=== PATIENT | male | born 1965 | race American Indian/Alaskan Native ===

== ENCOUNTER 2019-03-20 17:28 | Emergency (ER) | payer MEDICAID ==
--- NOTE | 2019-03-20 18:13 | Emergency Department Report ---
Blank Doc - Documentation Documentation: This is a 53-year-old male that presents with headache and right hip pain. 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 This initial assessment/diagnostic orders/clinical plan/treatment(s) is/are subject to change based on patient's health status, clinical progression and re- assessment by fellow clinical providers in the ED. Further treatment and workup at subsequent clinical providers discretion. Patient/guardians urged not to elope from the ED as their condition may be serious if not clinically assessed and managed. Initial orders include: 1- Patient sent to MAIN ED for further evaluation and treatment
[2019-03-20] MEDS ORDERED: MORPHINE IM ONE (21:01)
--- NOTE | 2019-03-20 21:03 | Emergency Department Report ---
ED General Adult HPI - General Chief complaint: Pain General Stated complaint: BODY PAIN Time Seen by Provider: 03/20/19 18:10 Source: patient, family (history obtained from patient's current caregiver), RN notes reviewed Mode of arrival: Wheelchair Limitations: Altered Mental Status, Physical Limitation - History of Present Illness Initial comments: This is a 53-year-old gentleman. The patient is not known to this provider previously. History is obtained by his caregiver. The patient's primary care doctor is Dr. Darek Mccoy,; [phone]. The patient has a past medical history of moderate mental retardation, hydrocephalus, cerebral palsy, GERD, spastic quadriplegia, overactive bladder, constipation and long-term drug therapy. The patient is brought to the hospital by his caregiver for evaluation of headache and nontraumatic right-sided hip pain. The patient is poorly verbal. The patient indicates he is having a headache. The patient indicates she is having hip pain. The patient and the caregiver cannot describe the nature of the pain, radiation, exacerbating or relieving factors. As per the caregiver, no fever, vomiting, loss of consciousness, foul-smelling urine, or change in medications that she is aware of. She thinks the pain got worse today, but she is not sure. Location: head, lower extremity Quality: other Consistency: other Improves with: other Worsens with: other Associated Symptoms: other - Related Data Home Medications Medication Instructions Recorded Confirmed Last Taken Docusate Sodium [Colace CAP] 100 mg PO BID 09/04/13 09/04/13 10/03/15 Nystatin [Nystop Powder] 100,000 gm PO DAILY 09/04/13 09/04/13 10/02/15 Omeprazole [PriLOSEC] 40 mg PO DAILY 09/04/13 09/04/13 10/04/15 10:00 Promethazine HCl [Promethazine TAB] 25 mg PO DAILY 09/04/13 09/04/13 09/03/13 diazePAM TAB [Valium] 2 mg PO BID 09/04/13 09/04/13 10/04/15 17:00 Indacaterol/Glycopyrrolate 2 mg PO 10/05/15 10/04/15 17:00 [id number]/Sod Sul/NaCl/Asb/C/KCl gm PO 10/05/15 10/05/15 06:30 [Moviprep Powder Packet] Solifenacin Succinate [Vesicare] 10 mg PO DAILY 10/05/15 10/05/15 10/04/15 10:00 traMADol [Ultram 50 MG tab] 50 mg PO PRN 10/05/15 10/05/15 09/21/15 Allergies Allergy/AdvReac Type Severity Reaction Status Date / Time No Known Allergies Allergy Unverified 09/04/13 12:05 ED Review of Systems ROS: Stated complaint: BODY PAIN Other details as noted in HPI Comment: per caregiver Constitutional: denies: fever Eyes: denies: eye discharge ENT: denies: epistaxis Respiratory: denies: wheezing Cardiovascular: denies: syncope Gastrointestinal: denies: nausea, vomiting, diarrhea Genitourinary: other Musculoskeletal: arthralgia Neurological: headache ED Past Medical Hx - Past Medical History Previous Medical History?: Yes Hx GERD: Yes Additional medical history: TBI- wheel chair bound, over-reactive bladder, 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 - Social History Smoking Status: Never Smoker Substance Use Type: None - Medications Home Medications: Home Medications Medication Instructions Recorded Confirmed Last Taken Type Docusate Sodium [Colace CAP] 100 mg PO BID 09/04/13 09/04/13 10/03/15 History Nystatin [Nystop Powder] 100,000 gm PO DAILY 09/04/13 09/04/13 10/02/15 History Omeprazole [PriLOSEC] 40 mg PO DAILY 09/04/13 09/04/13 10/04/15 10:00 History Promethazine HCl [Promethazine TAB] 25 mg PO DAILY 09/04/13 09/04/13 09/03/13 History diazePAM TAB [Valium] 2 mg PO BID 09/04/13 09/04/13 10/04/15 17:00 History Indacaterol/Glycopyrrolate 2 mg PO 10/05/15 10/04/15 17:00 History [id number]/Sod Sul/NaCl/Asb/C/KCl gm PO 10/05/15 10/05/15 06:30 History [Moviprep Powder Packet] Solifenacin Succinate [Vesicare] 10 mg PO DAILY 10/05/15 10/05/15 10/04/15 10:00 History traMADol [Ultram 50 MG tab] 50 mg PO PRN 10/05/15 10/05/15 09/21/15 History ED Physical Exam - General Limitations: Physical Limitation, Other (patient is awake. The patient follows commands. Patient will answer some yes no questions.) General appearance: alert, in no apparent distress - Head Head exam: Present: atraumatic, normocephalic - Eye Eye exam: Present: normal appearance - ENT ENT exam: Present: normal orophraynx, mucous membranes moist, normal external ear exam, other (poor dentition) - Neck Neck exam: Present: normal inspection. Absent: tenderness, meningismus - Respiratory Respiratory exam: Present: decreased breath sounds. Absent: respiratory distress, wheezes, rales, rhonchi, stridor - Cardiovascular Cardiovascular Exam: Present: regular rate, normal rhythm, normal heart sounds. Absent: bradycardia, tachycardia, irregular rhythm, systolic murmur, diastolic murmur, rubs, gallop - GI/Abdominal GI/Abdominal exam: Present: soft. Absent: distended, tenderness, guarding, rebound, rigid, pulsatile mass - Rectal Rectal exam: Present: normal inspection (no sacral ulcers noted), other (chaperoned by emergency doctor of audiology Bryce) - exam: Present: normal inspection External exam: Present: normal external exam, other (chaperoned by emergency doctor of audiology [facility]) - Extremities Exam Extremities exam: Present: pedal edema, other (2+ pulses noted in the bilateral upper, lower extremities. Compartments soft. No long bony tenderness. The pelvis is stable.). Absent: normal inspection (contractures noted bilateral upper, lower extremities), tenderness, joint swelling, calf tenderness - Back Exam Back exam: Present: normal inspection (scoliosis is noted). Absent: tenderness, CVA tenderness (R), CVA tenderness (L), paraspinal tenderness, vertebral tenderness - Neurological Exam Neurological exam: Present: alert (the patient is awake. The patient will follow some commands. There is no obvious facial droop. Upper, lower extremities bilaterally noted to have contractures.) - Skin Skin exam: Present: warm, dry, intact, normal color ED Course Vital Signs 03/20/19 03/20/19 18:10 21:21 Temperature 97.5 F L Pulse Rate 104 H Respiratory 18 16 Rate Blood Pressure 136/92 O2 Sat by Pulse 94 Oximetry - Reevaluation(s) Reevaluation #1: 03/20/19 22:33 Differential diagnosis, including not limited to: Headache, migraine, tension headache, cluster headache, intracranial lesion, chronic arthritis, myositis, electrolyte derangement Assessment and plan: 53-year-old gentleman, quadriplegic, poorly verbal, with complaints of headache and hip pain. History limited as patient is not able to describe the nature of his pain. He is currently awake and does not appear to be in any acute distress. His tachycardia is resolved and my exam. On repeat examinations, resting comfortable, in stretcher, does not appear to be in any acute distress. Exam not consistent with fracture, dislocation, cellulitis or compartment syndrome. X-ray of the pelvis grossly unremarkable. Screening laboratory studies, CT scan of the brain, urinalysis pending. Reevaluation #2: 03/21/19 01:46 CT scan of the brain is negative for acute disease. Patient resting comfortably and in no acute distress. Multiple reassessments are performed, patient does not appear to be in any distress. Please note that there was a delay in the patient's disposition secondary to the turnaround time from the radiology group to repeat the CAT scan of the brain. In any event, the patient does not appear to have an emergent medical condition at this time, and is suitable to follow up with his outpatient primary care doctor. ED Medical Decision Making - Lab Data Result diagrams: 03/20/19 22:24 03/20/19 22:24 Vital Signs 03/20/19 03/20/19 18:10 21:21 Temperature 97.5 F L Pulse Rate 104 H Respiratory 18 16 Rate Blood Pressure 136/92 O2 Sat by Pulse 94 Oximetry - Radiology Data Radiology results: pending, report reviewed, image reviewed [facility] [address] [place] [address] XRay Report Signed Patient: DEEPA BURT MR#: [id number] 1 : 1965 Acct:[id number] Age/Sex: 53 / M ADM Date: 03/20/19 Loc: ED Attending Dr: Ordering Physician: LOUISE DAVIS MD Date of Service: 03/20/19 Procedure(s): XR pelvis 1-2V Accession Number(s): [id number] cc: LUOISE DAVIS MD Fluoro Time In Minutes: AP PELVIS INDICATION: chronic hip pain. COMPARISON: No relevant prior imaging study available. FINDINGS: The exam is suboptimal due to patient positioning. There appear to be chronic contractures at both hips. Advanced osteoarthrosis changes are noted. It would be difficult to exclude an acute fracture on this single view. IMPRESSION: 1. Limited study. No definite acute fracture is seen. There is advanced osteoarthrosis at the hips. Additional views or CT would be useful if clinical suspicion for acute abnormality is high. Signer Name: Srinivasan Sosa MD Signed: 03/20/2019 9:37 PM Workstation Name: [id number] [id number] Transcribed By: FARTUN Dictated By: Srinivasan Sosa MD Electronically Authentic ated By: Srinivasan Sosa MD Signed Date/Time: 03/20/19 509 Critical care attestation.: If time is entered above; I have spent that time in minutes in the direct care of this critically ill patient, excluding procedure time. ED Disposition Clinical Impression: Hip pain, Headache, Spastic quadriparesis secondary to cerebral palsy Disposition: DC-01 TO HOME OR SELFCARE Is pt being admited?: No Does the pt Need Aspirin: No Condition: Stable Additional Instructions: Please continue outpatient medications. Follow-up with your primary care doctor within the next week. Patient may return to the emergency room right away with new, worsening or different symptoms not present on the initial emergency room evaluation. Laboratory studies today did not demonstrate any acute emergent condition, x-ray of the pelvis did not appear to demonstrate any acute emergent condition, and CT scan of the brain did not demonstrate any acute emergent condition. Incidental chronic-appearing abnormalities were noted, which may be followed up by the patient's primary care doctor. Recommend primary care doctor contact medical records department to obtain laboratory records and radiology records. Please return to the ER right away with new, worsening or different symptoms not present on the initial evaluation. Referrals: [facility] [place] [Provider Group] - 3-5 Days [facility] [Provider Group] - 3-5 Days
--- NOTE | 2019-03-20 21:41 | XRay Report ---
AP PELVIS INDICATION: chronic hip pain. COMPARISON: No relevant prior imaging study available. FINDINGS: The exam is suboptimal due to patient positioning. There appear to be chronic contractures at both hi ps. Advanced osteoarthrosis changes are noted. It would be difficult to exclude an acute fracture on this single view. IMPRESSION: 1. Limited study. No definite acute fracture is seen. There is advanced osteoarthrosis at the hips. A dditional views or CT would be useful if clinical suspicion for acute abnormality is high. Signer Name: Srinivasan Sosa MD Signed: 03/20/2019 9:37 PM Workstation Name: [id number]
[2019-03-20 22:50] LABS: Mean Corpuscular HGB Conc 30 % (32-34); Mean Corpuscular Volume 75 fl (84-94); Platelet Count 224 K/mm3 (140-440); Red Cell Distribution Width 17.6 % (13.2-15.2)
[2019-03-20 22:52] LABS: Hematocrit 44.3 % (35.5-45.6); Hemoglobin 13.4 gm/dl (11.8-15.2)
[2019-03-20 23:20] LABS: BUN/Creatinine Ratio 30; Blood Urea Nitrogen 12 mg/dL (9-20); Calcium 8.6 mg/dL (8.4-10.2); Hemolysis Index 39
[2019-03-20 23:34] LABS: Bilirubin,Urine NEG (Negative); Blood,Urine NEG (Negative); Color,Urine Amber (Yellow); Mucus,Urine 1+ /HPF; Protein,Urine <15 mg/dL mg/dL (Negative)
--- NOTE | 2019-03-21 01:12 | Cat Scan Report ---
CT HEAD WITHOUT CONTRAST INDICATION / CLINICAL INFORMATION: headache. TECHNIQUE: All CT scans at this location are performed using CT dose reduction for ALARA by means of automated e xposure control. COMPARISON: None available. FINDINGS: HEMORRHAGE: None. EXTRA-AXIAL SPACES: Normal in size and morphology for the patient's age. VENTRICULAR SYSTEM: Prominent ventriculomegaly secondary to early advanced cerebral atrophy. CEREBRAL PARENCHYMA: Encephalomalacia right inferior frontal and left mid anterior frontal lobes. Ol d infarction within right ganglia capsular region. No significant abnormality. No acute territorial i nfarct. MIDLINE SHIFT OR HERNIATION: None. CEREBELLUM / BRAINSTEM: No significant abnormality. ORBITS: Normal as visualized. SOFT TISSUES of HEAD: No significant abnormality. CALVARIUM: No significant abnormality. PARANASAL SINUSES / MASTOID AIR CELLS: Normal as visualized. ADDITIONAL FINDINGS: None. IMPRESSION: 1. No acute intracranial abnormality. 2. 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 Moderately advanced cerebral atrophy with prominent ventriculomegaly. Signer Name: Jose Cheng MD Signed: 03/21/2019 1:08 AM Workstation Name: [id number]
[2019-03-21 08:41] VITALS: BP 119/73
== END 2019-03-21 01:50 | disposition home or self-care (01) ==
LOC: ED 17:28
DX: G80.0 Spastic quadriplegic cerebral palsy (principal); M25.551 Pain in right hip; K21.9 Gastro-esophageal reflux disease without esophagitis; Z79.899 Other long term (current) drug therapy
CPT/HCPCS: 36415; 70450; 72170; 80048; 81001; 82550; 83735; 85027; 87086; 96372; 99285; J2270

== ENCOUNTER 2019-03-27 19:11 | Emergency (ER) | payer MEDICAID ==
[2019-03-27 19:55] VITALS: BP 135/95
--- NOTE | 2019-03-27 22:24 | Emergency Department Report ---
ED General Adult HPI - General Chief complaint: Abdominal Pain Stated complaint: CONSTIPATION Time Seen by Provider: 03/27/19 19:59 Source: EMS Mode of arrival: Stretcher Limitations: Physical Limitation - History of Present Illness Initial comments: Mr. Rizvi is a 53 yo male with hx of quadriplegia and GERD. He is bedbound and minimally verbal. Home health nurse is concerned for constipation. He was treated with magnesium citrate without relief. Has not had about 5 days. Mr. Pina denies pain. He's had good appetite. machine assistant at bedside states that he is at his normal state of health. He is bedbound. He has been comfortable. No vomiting. No fever. Additional information obtained from electronic medical record -: Gradual, days(s) (5) Location: abdomen Severity scale (0 -10): 2 Quality: other (constipation) Consistency: constant Improves with: none Worsens with: none - Related Data Home Medications Medication Instructions Recorded Confirmed Last Taken Docusate Sodium [Colace CAP] 100 mg PO BID 09/04/13 09/04/13 10/03/15 Nystatin [Nystop Powder] 100,000 gm PO DAILY 09/04/13 09/04/13 10/02/15 Omeprazole [PriLOSEC] 40 mg PO DAILY 09/04/13 09/04/13 10/04/15 10:00 Promethazine HCl [Promethazine TAB] 25 mg PO DAILY 09/04/13 09/04/13 09/03/13 diazePAM TAB [Valium] 2 mg PO BID 09/04/13 09/04/13 10/04/15 17:00 Indacaterol/Glycopyrrolate 2 mg PO 10/05/15 10/04/15 17:00 [id number]/Sod Sul/NaCl/Asb/C/KCl gm PO 10/05/15 10/05/15 06:30 [Moviprep Powder Packet] Solifenacin Succinate [Vesicare] 10 mg PO DAILY 10/05/15 10/05/15 10/04/15 10:00 traMADol [Ultram 50 MG tab] 50 mg PO PRN 10/05/15 10/05/15 09/21/15 Previous Rx's Medication Instructions Recorded Last Taken Type Polyethylene Glycol/Elect 4,000 ml PO ONCE #1 bottle 03/27/19 Unknown Rx [Golytely] Allergies Allergy/AdvReac Type Severity Reaction Status Date / Time No Known Allergies Allergy Unverified 09/04/13 12:05 ED Review of Systems ROS: Stated complaint: CONSTIPATION Other details as noted in HPI Comment: All other systems reviewed and negative Constitutional: denies: fever, malaise Respiratory: denies: cough Cardiovascular: denies: chest pain ED Past Medical Hx - Past Medical History Previous Medical History?: Yes Hx GERD: Yes Additional medical history: TBI- wheel chair bound, over-reactive bladder, 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 - Surgical History Past Surgical History?: No - Social History Smoking Status: Never Smoker - Medications Home Medications: Home Medications Medication Instructions Recorded Confirmed Last Taken Type Docusate Sodium [Colace CAP] 100 mg PO BID 09/04/13 09/04/13 10/03/15 History Nystatin [Nystop Powder] 100,000 gm PO DAILY 09/04/13 09/04/13 10/02/15 History Omeprazole [PriLOSEC] 40 mg PO DAILY 09/04/13 09/04/13 10/04/15 10:00 History Promethazine HCl [Promethazine TAB] 25 mg PO DAILY 09/04/13 09/04/13 09/03/13 History diazePAM TAB [Valium] 2 mg PO BID 09/04/13 09/04/13 10/04/15 17:00 History Indacaterol/Glycopyrrolate 2 mg PO 10/05/15 10/04/15 17:00 History [id number]/Sod Sul/NaCl/Asb/C/KCl gm PO 10/05/15 10/05/15 06:30 History [Moviprep Powder Packet] Solifenacin Succinate [Vesicare] 10 mg PO DAILY 10/05/15 10/05/15 10/04/15 10:00 History traMADol [Ultram 50 MG tab] 50 mg PO PRN 10/05/15 10/05/15 09/21/15 History Polyethylene Glycol/Elect 4,000 ml PO ONCE #1 bottle 03/27/19 Unknown Rx [Golytely] ED Physical Exam - General Limitations: Physical Limitation General appearance: alert, in no apparent distress, other (appears chronically debilitated, contracted upper and lower extremities small stature) - Head Head exam: Present: atraumatic, normocephalic - Eye Eye exam: Present: normal appearance - ENT ENT exam: Present: mucous membranes moist - Neck Neck exam: Present: normal inspection - Respiratory Respiratory exam: Present: normal lung sounds bilaterally. Absent: respiratory distress, wheezes, rhonchi - Cardiovascular Cardiovascular Exam: Present: regular rate, normal rhythm, normal heart sounds. Absent: systolic murmur, diastolic murmur, rubs, gallop - GI/Abdominal GI/Abdominal exam: Present: soft, normal bowel sounds. Absent: distended, tenderness, guarding, rebound - Rectal Rectal exam: Present: deferred - Extremities Exam Extremities exam: Present: other (contracted upper and lower extremities) - Back Exam Back exam: Present: normal inspection - Neurological Exam Neurological exam: Present: alert, oriented X3 - Psychiatric Psychiatric exam: Present: normal affect, normal mood - Skin Skin exam: Present: warm, dry. Absent: rash ED Course Vital Signs 03/27/19 19:55 Temperature 98.2 F Pulse Rate 95 H Respiratory 16 Rate Blood Pressure 135/95 [Right] O2 Sat by Pulse 99 Oximetry ED Medical Decision Making - Medical Decision Making Mr. Pina presents with constipation. No indication of obstruction or peritonitis. Our nursing staff administered a rectal enema with subjective improvement of symptoms. Mr. Rizvi stated that he felt better. Prescribed GoLYTELY. Discharged home. Critical care attestation.: If time is entered above; I have spent that time in minutes in the direct care of this critically ill patient, excluding procedure time. ED Disposition Clinical Impression: Constipation Disposition: DC-01 TO HOME OR SELFCARE Is pt being admited?: No Does the pt Need Aspirin: No Condition: Stable Instructions: Constipation (ED) Prescriptions: Polyethylene Glycol/Elect [Golytely] 4,000 ml PO ONCE #1 bottle
== END 2019-03-28 00:01 | disposition home or self-care (01) ==
LOC: ED 19:11
DX: K59.00 Constipation, unspecified (principal); K21.9 Gastro-esophageal reflux disease without esophagitis; Z79.899 Other long term (current) drug therapy
CPT/HCPCS: 99283

== ENCOUNTER 2019-09-20 15:54 | Emergency (ER) | payer MEDICARE ==
[2019-09-20] MEDS ORDERED: FAMOTIDINE 20 MG/2 ML INJ IV ONE (17:12)
[2019-09-20] MEDS ORDERED: ONDANSETRON 4 MG/2 ML INJ IV ONE (17:12)
[2019-09-20] MEDS ORDERED: SODIUM CHLORIDE 0.9% 1000 ML 2,000 ML IV ONE (17:12)
--- NOTE | 2019-09-20 17:14 | Emergency Department Report ---
ED General Adult HPI - General Chief complaint: Nausea/Vomiting/Diarrhea Stated complaint: DARK VOMIT Time Seen by Provider: 09/20/19 16:46 Source: family (Caregiver. The patient is basically nonverbal), EMS ( EMS documentation not available at time of chart dictation ), RN notes reviewed Mode of arrival: Stretcher Limitations: Physical Limitation - History of Present Illness Initial comments: This is a 53-year-old gentleman. I have evaluated him in the past. He has a past medical history of functional quadriplegia, acute on chronic metabolic enc ephalopathy, cerebral palsy, chronic cough, and left lower lobe atelectasis. He has been seen by gastroenterology, Dr. Kirsten Mtz in the past. He had EGD in 2016, which suggested a small area of Allan's esophagus. He also had a colonoscopy in 2016 which was "normal colonoscopy to the cecum." He is brought to the hospital by emergency medical services. He was at daycare today, and apparently had a few episodes of dark emesis. His caregiver thinks that it was coffee-ground in nature. No fever. The patient is nonverbal and not able to describe exacerbating or relieving factors. While in the emergency room, the patient had a large episode of coffee-ground emesis. As per caregiver, patient has been usual state of health up until today. There is no complaint of chest pain, shortness of breath, loss of consciousness, or urinary symptoms. -: hour(s) Quality: other Consistency: other Improves with: other Worsens with: other Associated Symptoms: other - Related Data Home Medications Medication Instructions Recorded Confirmed Last Taken Nystatin [Nystop Powder] 100,000 gm PO DAILY 09/04/13 09/06/19 10/02/15 Omeprazole [PriLOSEC] 40 mg PO DAILY 09/04/13 09/06/19 10/04/15 10:00 diazePAM TAB [Valium] 2 mg PO BID 09/04/13 09/06/19 10/04/15 17:00 Cholecalciferol (Vitamin D3) 5,000 unit PO DAILY 09/06/19 09/06/19 Unknown [Vitamin D3] Fesoterodine Fumarate [Toviaz] 8 mg PO QDAY 09/06/19 09/06/19 Unknown Glycopyrrolate [Robinul] 2 mg PO BID 09/06/19 09/06/19 Unknown Ketoconazole [Ketoconazole shampoo] 120 ml TP PRN 09/06/19 09/06/19 Unknown Previous Rx's Medication Instructions Recorded Last Taken Type guaiFENesin DM [Guaifenesin Dm 10 ml PO Q4H PRN #100 ml 09/08/19 Unknown Rx Syrup] Famotidine [Pepcid] 20 mg PO BID #60 tablet 09/20/19 Unknown Rx Lactulose 10 gm PO BID #1000 ml 09/20/19 Unknown Rx Ondansetron [Zofran Odt] 4 mg PO Q6HR PRN #15 tab.rapdis 09/20/19 Unknown Rx polyethylene glycoL 3350 [Miralax 17 gm PO QDAY #30 packet 09/20/19 Unknown Rx 3350] Allergies Allergy/AdvReac Type Severity Reaction Status Date / Time No Known Allergies Allergy Unverified 09/04/13 12:05 ED Review of Systems ROS: Stated complaint: DARK VOMIT Other details as noted in HPI Comment: Unobtainable due to pts medical conditions Constitutional: denies: fever Gastrointestinal: nausea, vomiting, constipation, other Genitourinary: as per HPI Musculoskeletal: as per HPI Neurological: as per HPI Psychiatric: as per HPI Hematological/Lymphatic: as per HPI ED Past Medical Hx - Past Medical History Hx Congestive Heart Failure: No Hx Diabetes: No Hx GERD: Yes Hx Asthma: No Hx COPD: No Additional medical history: TBI- wheel chair bound, over-reactive bladder, 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 - Social History Smoking Status: Never Smoker - Medications Home Medications: Home Medications Medication Instructions Recorded Confirmed Last Taken Type Nystatin [Nystop Powder] 100,000 gm PO DAILY 09/04/13 09/06/19 10/02/15 History Omeprazole [PriLOSEC] 40 mg PO DAILY 09/04/13 09/06/19 10/04/15 10:00 History diazePAM TAB [Valium] 2 mg PO BID 09/04/13 09/06/19 10/04/15 17:00 History Cholecalciferol (Vitamin D3) 5,000 unit PO DAILY 09/06/19 09/06/19 Unknown History [Vitamin D3] Fesoterodine Fumarate [Toviaz] 8 mg PO QDAY 09/06/19 09/06/19 Unknown History Glycopyrrolate [Robinul] 2 mg PO BID 09/06/19 09/06/19 Unknown History Ketoconazole [Ketoconazole shampoo] 120 ml TP PRN 09/06/19 09/06/19 Unknown History guaiFENesin DM [Guaifenesin Dm 10 ml PO Q4H PRN #100 ml 09/08/19 Unknown Rx Syrup] Famotidine [Pepcid] 20 mg PO BID #60 tablet 09/20/19 Unknown Rx Lactulose 10 gm PO BID #1000 ml 09/20/19 Unknown Rx Ondansetron [Zofran Odt] 4 mg PO Q6HR PRN #15 tab.rapdis 09/20/19 Unknown Rx polyethylene glycoL 3350 [Miralax 17 gm PO QDAY #30 packet 09/20/19 Unknown Rx 3350] ED Physical Exam - General Limitations: Physical Limitation, Other (Patient is a poor historian and basically nonverbal.) General appearance: alert, in no apparent distress - Head Head exam: Present: atraumatic, normocephalic - Eye Eye exam: Present: normal appearance - ENT ENT exam: Present: mucous membranes dry - Neck Neck exam: Present: normal inspection - Respiratory Respiratory exam: Present: decreased breath sounds. Absent: respiratory distress - Cardiovascular Cardiovascular Exam: Present: normal rhythm, tachycardia, normal heart sounds. Absent: systolic murmur, diastolic murmur, rubs, gallop - GI/Abdominal GI/Abdominal exam: Present: soft. Absent: distended, tenderness, guarding, rebound, rigid, pulsatile mass - Rectal Rectal exam: Present: normal inspection, normal rectal tone, heme (-) stool, fecal impaction, other (Chaperoned by nurse Savi Munson). Absent: bloody stool, hemorrhoids, mass - Extremities Exam Extremities exam: Present: normal inspection, other (2+ pulses noted in the b ilateral upper and lower extremities. There is no palpable cord. negative Homans sign. Muscular compartments are soft. The pelvis is stable.) - Back Exam Back exam: Present: normal inspection. Absent: tenderness, CVA tenderness (R), CVA tenderness (L), paraspinal tenderness, vertebral tenderness - Neurological Exam Neurological exam: Present: other (The patient is awake. The patient does move his right arm and right leg. Detailed neurologic examination not possible secondary to patient's poor baseline mental status) - Psychiatric Psychiatric exam: Present: normal affect, normal mood - Skin Skin exam: Present: warm, dry, intact, normal color. Absent: rash ED Course Vital Signs 09/20/19 09/20/19 09/20/19 16:43 16:46 17:00 Temperature Pulse Rate 122 H Respiratory 18 20 Rate Blood Pressure 133/82 112/77 Blood Pressure [Left] O2 Sat by Pulse 100 93 96 Oximetry 09/20/19 09/20/19 09/20/19 17:15 17:30 17:46 Temperature Pulse Rate Respiratory Rate Blood Pressure 107/70 107/70 116/71 Blood Pressure [Left] O2 Sat by Pulse 94 95 94 Oximetry 09/20/19 09/20/19 09/20/19 18:00 18:16 18:30 Temperature Pulse Rate 114 H 113 H 111 H Respiratory 22 21 20 Rate Blood Pressure 118/78 118/78 118/78 Blood Pressure [Left] O2 Sat by Pulse Oximetry 09/20/19 09/20/19 09/20/19 18:53 19:01 19:25 Temperature Pulse Rate 109 H 108 H Respiratory 24 20 Rate Blood Pressure 118/78 132/90 139/92 Blood Pressure [Left] O2 Sat by Pulse 97 96 96 Oximetry 09/20/19 09/20/19 09/20/19 19:30 19:34 19:45 Temperature 98.2 F Pulse Rate 109 H 111 H 110 H Respiratory 20 20 21 Rate Blood Pressure 129/74 138/75 Blood Pressure 138/75 [Left] O2 Sat by Pulse 94 96 95 Oximetry 09/20/19 09/20/19 09/20/19 20:00 20:15 20:31 Temperature Pulse Rate 109 H 108 H 102 H Respiratory 16 15 23 Rate Blood Pressure 137/74 138/75 138/75 Blood Pressure [Left] O2 Sat by Pulse 93 96 94 Oximetry 09/20/19 09/20/19 20:45 21:01 Temperature Pulse Rate 97 H 110 H Respiratory 21 32 H Rate Blood Pressure 137/74 137/74 Blood Pressure [Left] O2 Sat by Pulse 94 97 Oximetry - Reevaluation(s) Reevaluation #1: 09/20/19 18:08 Differential diagnosis, including but not limited to: GERD, gastritis, hiatal hernia, Gissel-Parra tear, pneumonia, constipation, obstipation, obstruction, dehydration, urinary tract infection Assessment and plan: 53-year-old gentleman with a complaint of nausea and vomiting, questionable coffee-ground emesis, found to be tachycardic, rectal temperature 97.8 degrees, his large fecal mass in his rectum, suspect constipation. We will start IV fluids, Pepcid, antiemetics, obtain basic laboratory studies, urinalysis, x-ray the chest, noncontrast CT scan of the abdomen pelvis, and reassess. Reevaluation #2: 09/20/19 19:31 Heart rate 109 bpm. Reevaluation #3: 09/20/19 22:05 Heart rate improved. No active vomiting at this time. Patient did have a partial bowel movement with soapsuds enema. Patient suitable for trial of outpatient management. He can follow-up with outpatient GI for his history of coffee-ground emesis, and constipation ED Medical Decision Making - Lab Data Result diagrams: 09/20/19 18:05 09/20/19 18:05 Vital Signs 09/20/19 09/20/19 09/20/19 16:43 16:46 17:00 Pulse Rate 122 H Respiratory 18 20 Rate Blood Pressure 133/82 112/77 O2 Sat by Pulse 100 93 96 Oximetry 09/20/19 09/20/19 09/20/19 17:15 17:30 17:46 Pulse Rate Respiratory Rate Blood Pressure 107/70 107/70 116/71 O2 Sat by Pulse 94 95 94 Oximetry 09/20/19 18:53 Pulse Rate 109 H Respiratory 24 Rate Blood Pressure 118/78 O2 Sat by Pulse 97 Oximetry Lab Results 09/20/19 09/20/19 09/20/19 Range/Units 18:05 18:05 18:05 WBC 14.6 H (4.5-11.0) K/mm3 RBC 6.50 H (3.65-5.03) M/mm3 Hgb 15.3 H (11.8-15.2) gm/dl Hct 50.3 H (35.5-45.6) % MCV 77 L (84-94) fl MCH 24 L (28-32) pg MCHC 30 L (32-34) % RDW 14.9 (13.2-15.2) % Plt Count 237 (140-440) K/mm3 PT 14.1 (12.2-14.9) Sec. INR 1.08 (0.87-1.13) Sodium 139 (137-145) mmol/L Potassium 4.1 (3.6-5.0) mmol/L Chloride 103.9 (98-107) mmol/L Carbon Dioxide 20 L (22-30) mmol/L Anion Gap 19 mmol/L BUN 22 H (9-20) mg/dL Creatinine 0.5 L (0.8-1.5) mg/dL Estimated GFR > 60 ml/min BUN/Creatinine Ratio 44 % Glucose 125 H (75-100) mg/dL Calcium 9.1 (8.4-10.2) mg/dL Magnesium 2.20 (1.7-2.3) mg/dL Total Bilirubin 0.30 (0.1-1.2) mg/dL AST 24 (5-40) units/L ALT 16 (7-56) units/L Alkaline Phosphatase 153 H (35-129) units/L Total Creatine Kinase 69 (55-170) units/L Total Protein 8.6 H (6.3-8.2) g/dL Albumin 3.7 L (3.9-5) g/dL Albumin/Globulin Ratio 0.8 % Blood Type Antibody Screen 09/20/19 Range/Units 18:05 WBC (4.5-11.0) K/mm3 RBC (3.65-5.03) M/mm3 Hgb (11.8-15.2) gm/dl Hct (35.5-45.6) % MCV (84-94) fl MCH (28-32) pg MCHC (32-34) % RDW (13.2-15.2) % Plt Count (140-440) K/mm3 PT (12.2-14.9) Sec. INR (0.87-1.13) Sodium (137-145) mmol/L Potassium (3.6-5.0) mmol/L Chloride (98-107) mmol/L Carbon Dioxide (22-30) mmol/L Anion Gap mmol/L BUN (9-20) mg/dL Creatinine (0.8-1.5) mg/dL Estimated GFR ml/min BUN/Creatinine Ratio % Glucose (75-100) mg/dL Calcium (8.4-10.2) mg/dL Magnesium (1.7-2.3) mg/dL Total Bilirubin (0.1-1.2) mg/dL AST (5-40) units/L ALT (7-56) units/L Alkaline Phosphatase (35-129) units/L Total Creatine Kinase (55-170) units/L Total Protein (6.3-8.2) g/dL Albumin (3.9-5) g/dL Albumin/Globulin Ratio % Blood Type O POSITIVE Antibody Screen Negative - EKG Data -: EKG Interpreted by Me - EKG Data 09/20/19 18:09 Sinus tachycardia, 117 bpm, premature ventricular contractions, normal axis, QTC 423 ms, motion artifact, not consistent with a STEMI - Radiology Data Radiology results: pending, image reviewed interpreted by me: X-ray the chest is rotated, shows prominent fecal load in the ascending colon, atelectatic changes noted, poor inspiratory effort, no obvious infiltrates are noted Print Report Referring Physician: LOUISE DAVIS Patient Name: DEEPA BURT Date of : 1965 Sex: Male Report Date: 2019-09-20 Report Status: Finalized Findings [facility] [address] [place] [address] Cat Scan Report Signed Patient: DEEPA BURT MR#: [id number] 1 : 1965 Acct:[id number] Age/Sex: 53 / M ADM Date: 09/20/19 Loc: ED Attending Dr: Daniella ing Physician: LOUISE DAVIS MD Date of Service: 09/20/19 Procedure(s): CT abdomen pelvis wo con Accession Number(s): [id number] cc: LOUISE DAVIS MD CT OF THE ABDOMEN AND PELVIS WITHOUT CONTRAST INDICATION / CLINICAL INFORMATION: Nausea and vomiting. TECHNIQUE: All CT scans at this location are performed using CT dose reduction for ALARA by means of automated exposure control. COMPARISON: None available. FINDINGS: ABDOMEN: There is a moderately large amount of stool throughout the colon. There is a very large amount of stool in a distended rectosigmoid. No bowel wall thickening or pericolonic inflammation ar e identified. There is no evidence of free air. The small bowel is normal. The liver, spleen, gallbladder, bile ducts, pancreas, adrenal glands and left kidney are normal. There is a 5 cm simple cyst-appearing lesion in the lower pole of the right kidney. No adenopathy is identified. There is mild right basilar subsegmental atelectasis. PELVIS: There is mild diffuse thickening of the wall the urinary bladder. The prostate gland is mildly enlarged. The distal ureters are normal. I see no evidence of appendicitis or diverticulitis. No abnormal mass or fluid collection is seen. I do not identify a hernia. There is thoracolumbar scoliosis. There are advanced degenerative changes involving both hips. IMPRESSION: 1. Evidence of significant fecal impaction involving the rect osigmoid. No CT evidence of stercoral colitis. 2. Diffuse thickening of the wall of the urinary bladder is nonspecific and may be related to hypertrophy or cystitis. 3. 5 cm simple right renal cyst. Signer Name: Carlos Brown MD Signed: 09/20/2019 8:07 PM Workstation Name: [id number] Transcribed By: RT Dictated By: Carlos Brown MD Electronically Authenticated By: Carlos Brown MD Signed Date/Time: 09/20/192006 DD/ 00 Critical care attestation.: If time is entered above; I have spent that time in minutes in the direct care of this critically ill patient, excluding procedure time. ED Disposition Clinical Impression: Constipation, History of nausea and vomiting Disposition: DC-01 TO HOME OR SELFCARE Is pt being admited?: No Does the pt Need Aspirin: No Condition: Stable Additional Instructions: Avoid consumption of Motrin, ibuprofen, Naprosyn, Aleve. Drink 4 to 6 cups of water per day, and patient may also consume apple juice or prune juice to assist in bowel movements. Recommend patient consume plenty of fiber, vegetables, and lean protein. Patient may take Tylenol [id number] as needed for pain. Take the prescribed medications as needed and directed. Follow-up with your primary care doctor or access database developer within the next 7 to 10 days. Return to the emergency room right away with new, worsened or different symptoms, or symptoms not present on the initial emergency room evaluation. Referrals: KIRSTEN MTZ MD [Staff Physician] - 7-10 days
[2019-09-20 18:17] LABS: Hematocrit 50.3 % (35.5-45.6); Hemoglobin 15.3 gm/dl (11.8-15.2); Mean Corpuscular HGB Conc 30 % (32-34); Mean Corpuscular Volume 77 fl (84-94); Platelet Count 237 K/mm3 (140-440); Red Cell Distribution Width 14.9 % (13.2-15.2)
[2019-09-20 18:27] LABS: INR 1.08 (0.87-1.13)
[2019-09-20 18:30] LABS: Alanine Aminotransferase 16 units/L (7-56); Albumin 3.7 g/dL (3.9-5); BUN/Creatinine Ratio 44; Blood Urea Nitrogen 22 mg/dL (9-20); Calcium 9.1 mg/dL (8.4-10.2); Hemolysis Index 20
[2019-09-20 19:59] LABS: Bilirubin,Urine NEG (Negative); Blood,Urine SM (Negative); Color,Urine Yellow (Yellow); Mucus,Urine FEW /HPF; Protein,Urine <15 mg/dL mg/dL (Negative)
--- NOTE | 2019-09-20 20:11 | Cat Scan Report ---
CT OF THE ABDOMEN AND PELVIS WITHOUT CONTRAST INDICATION / CLINICAL INFORMATION: Nausea and vomiting. TECHNIQUE: All CT scans at this location are performed using CT dose reduction for ALARA by means of automated e xposure control. COMPARISON: None available. FINDINGS: ABDOMEN: There is a moderately large amount of stool throughout the colon. There is a very large amou nt of stool in a distended rectosigmoid. No bowel wall thickening or pericolonic inflammation are aman ntified. There is no evidence of free air. The small bowel is normal. The liver, spleen, gallbladder, bile ducts, pancreas, adrenal glands and left kidney are normal. Ther e is a 5 cm simple cyst-appearing lesion in the lower pole of the right kidney. No adenopathy is iden tified. There is mild right basilar subsegmental atelectasis. PELVIS: There is mild diffuse thickening of the wall the urinary bladder. The prostate gland is mildl y enlarged. The distal ureters are normal. I see no evidence of appendicitis or diverticulitis. No ab normal mass or fluid collection is seen. I do not identify a hernia. There is thoracolumbar scoliosis . There are advanced degenerative changes involving both hips. IMPRESSION: 1. Evidence of significant fecal impaction involving the rectosigmoid. No CT evidence of stercoral co litis. 2. Diffuse thickening of the wall of the urinary bladder is nonspecific and may be related to hypertr ophy or cystitis. 3. 5 cm simple right renal cyst. Signer Name: Carlos Brown MD Signed: 09/20/2019 8:07 PM Workstation Name: [id number]
[2019-09-20 23:12] VITALS: BP 123/66
--- NOTE | 2019-09-23 13:38 | XRay Report ---
CHEST 1 VIEW INDICATION / CLINICAL INFORMATION: n/v weak. COMPARISON: 09/06/2019 FINDINGS: SUPPORT DEVICES: None. HEART / MEDIASTINUM: No significant abnormality. LUNGS / PLEURA: No significant pulmonary or pleural abnormality. No pneumothorax. ADDITIONAL FINDINGS: Left upper rib deformities. IMPRESSION: 1. No acute findings. Signer Name: Enoc Tyson MD Signed: 09/20/2019 6:58 PM Workstation Name: [id number]
== END 2019-09-21 00:07 | disposition home or self-care (01) ==
LOC: ED 15:54
DX: K59.00 Constipation, unspecified (principal); K92.0 Hematemesis; K21.9 Gastro-esophageal reflux disease without esophagitis; Z79.899 Other long term (current) drug therapy
CPT/HCPCS: 36415; 71045; 74176; 80053; 81001; 82271; 82550; 83735; 85027; 85610; 86850; 86900; 86901; 87086; 93005; 93010; 96361; 96374; 96375; 99285; J2405; J7030

== ENCOUNTER 2020-01-12 21:57 | Observation (INO) | payer MEDICARE ==
[2020-01-12] MEDS ORDERED: LIDOCAINE VISCOUS 2% 15 ML ORAL LIQD PO ONE (22:41)
[2020-01-12] MEDS ORDERED: SODIUM CHLORIDE 0.9% 1000 ML 1,000 ML IV ONE (22:41)
--- NOTE | 2020-01-12 22:48 | Emergency Department Report ---
HPI - General Chief Complaint: Sore Throat Time Seen by Provider: 01/12/20 22:35 - HPI HPI: Room 5 The patient is a 54-year-old male present with a chief complaint of sore throat. Patient was sent from assisted living and has a history of traumatic brain injury. Patient is a poor historian but acknowledges he has had a sore throat for the past 2 days. 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, moderate MR, hydrocephalus, cerebral palsy, quadriplegic,, constipation, prison drug therapy - Surgical History Past Surgical History?: Yes Additional Surgical History: unknown - Family History Family history: no significant - Social History Smoking Status: Unknown if ever smoked - Medications Home Medications: Home Medications Medication Instructions Recorded Confirmed Last Taken Type Nystatin [Nystop Powder] 100,000 gm PO DAILY 09/04/13 09/06/19 10/02/15 History Omeprazole [PriLOSEC] 40 mg PO DAILY 09/04/13 09/06/19 10/04/15 10:00 History diazePAM TAB [Valium] 2 mg PO BID 09/04/13 09/06/19 10/04/15 17:00 History Cholecalciferol (Vitamin D3) 5,000 unit PO DAILY 09/06/19 09/06/19 Unknown History [Vitamin D3] Fesoterodine Fumarate [Toviaz] 8 mg PO QDAY 09/06/19 09/06/19 Unknown History Glycopyrrolate [Robinul] 2 mg PO BID 09/06/19 09/06/19 Unknown History Ketoconazole [Ketoconazole shampoo] 120 ml TP PRN 09/06/19 09/06/19 Unknown History guaiFENesin DM [Guaifenesin Dm 10 ml PO Q4H PRN #100 ml 09/08/19 Unknown Rx Syrup] Famotidine [Pepcid] 20 mg PO BID #60 tablet 09/20/19 Unknown Rx Lactulose 10 gm PO BID #1000 ml 09/20/19 Unknown Rx Ondansetron [Zofran Odt] 4 mg PO Q6HR PRN #15 tab.rapdis 09/20/19 Unknown Rx polyethylene glycoL 3350 [Miralax 17 gm PO QDAY #30 packet 09/20/19 Unknown Rx 3350] ED Review of Systems ROS: Stated complaint: SORE THROAT Other details as noted in HPI Constitutional: denies: fever ENT: throat pain Respiratory: no symptoms reported Endocrine: no symptoms reported Physical Exam - Physical Exam Vital Signs: Vital Signs 01/12/20 01/12/20 22:38 22:39 Temperature 97.9 F 97.9 F Pulse Rate 115 H Respiratory 25 H Rate Blood Pressure 152/100 [Left] O2 Sat by Pulse 96 Oximetry Physical Exam: GENERAL: The patient is well-nourished male lying on stretcher not appearing to be in acute distress. [] HEENT: Normocephalic. Patient has moist mucous membranes. No evidence of erythema in oropharynx. No exudates seen. Uvula midline NECK: Trachea midline CHEST/LUNGS: There is no respiratory distress noted. HEART/CARDIOVASCULAR: Regular. There is no tachycardia. There is no gallop rub or murmur. ABDOMEN: Abdomen is soft, nontender. Patient has normal bowel sounds. There is no abdominal distention. SKIN: There is no rash. There is no edema. There is no diaphoresis. NEURO: The patient is awake and alert. The patient is cooperative. MUSCULOSKELETAL: There are contractures of bilateral lower extremities and left upper extremity. ED Course Vital Signs 01/12/20 01/12/20 22:38 22:39 Temperature 97.9 F 97.9 F Pulse Rate 115 H Respiratory 25 H Rate Blood Pressure 152/100 [Left] O2 Sat by Pulse 96 Oximetry ED Medical Decision Making - Lab Data Result diagrams: 01/12/20 22:30 01/12/20 22:30 - Radiology Data Radiology results: report reviewed (CT neck), image reviewed (CT neck) [facility] [address] [place] [address] Cat Scan Report Signed Patient: DEEPA BURT MR#: [id number] 1 : 1965 Acct:[id number] Age/Sex: 54 / M ADM Date: 01/12/20 Loc: ED Attending Dr: Ordering Physician: NAHEED YOU MD Date of Service: 01/12/20 Procedure(s): CT neck w con Accession Number(s): [id number] cc: NAHEED YOU MD CT NECK WITH INTRAVENOUS CONTRAST AND MULTIPLANAR RECONSTRUCTION CLINICAL HISTORY: MAIN TECHNIQUE: 3.75 mm thick contiguous axial scans were obtained from the skull base down to the aortic arch during intravenous contrast administration. In add ition to evaluation of axial source images sagittal and coronal multiplanar reconstructions were produced and reviewed for this report. All CT imaging studies performed at this facility utilize dose modulation, iterative reconstruction or weight based dosing, if appropriate, to obtain the lowest ach ievable radiation dose. FINDINGS: LIMITATIONS: Patient suffers from advanced contractures of the neck and left shoulder and cannot be scanned in a conventional plane. The obliquity of the images is limiting factor on this study. No abnormalities are seen along the course of the airway. Nasopharynx, oropharynx, hypopharynx, larynx and visualized portions of the subglottic airway all have an unremarkable appearance. There is no indication of tonsillar enlargement. There is no evidence of retropharyngeal or parapharyngeal abscess. The visualized portions of the mid and proximal thoracic esophagus are dilated and fluid-filled. Possibility of distal esophageal stricture or achalasia should be considered. There is no indication of cervical lymphadenopathy. No abnormalities are seen in evaluation of the oral cavity and tongue. The floor the mouth has a normal appearance. The parotid and submandibular salivary glands have a normal appearance. Evaluation of the nasal cavity reveals no abnormali ty. The paranasal sinuses are free from inflammatory mucosal disease. Evaluation of the orbits reveals no abnormality. The thyroid gland is normal in size and homogeneous in attenuation. No focal thyroid lesions are identified. There is an exaggerated thoracic kyphosis and increased cervical lordosis. Anterior osteophyte formation is observed at multiple levels. There is no indication of central canal stenosis. Evaluation of the lung apices reveals no abnormality. There is no indication of lung nodule or infiltrate. Marked elevation of the right hemidiaphragm is noted. Evaluation of the intracranial structures is remarkable for prominent ventriculomegaly with dilatation of the lateral ventri cles, third ventricle and fourth ventricle. This is unchanged dating back through head CT 03/20/2019. Enhancement of normal vascular structures is demonstrated. No areas of abnormal contrast enhancement are identified. IMPRESSION: 1. The examination is limited secondary to difficulties in patient positioning as described above. 2. Dilatation of fluid-filled thoracic esophagus is noted suggesting possible achalasia or distal esophageal stricture. This is incompletely evaluated on CT neck. Patient may be at risk for aspiration. 3. No additional abnormalities are identified. Signer Name: Shaq Zamora MD Signed: 01/13/2020 12:57 AM Workstation Name: [id number] Transcribed By: Dictated By: Shaq Zamora MD Electronically Authenticated By: Shaq Zamora MD Signed Date/Time: 01/13/20 0057 DD/ TD/TT: - Differential Diagnosis Pharyngitis, retropharyngeal abscess Critical care attestation.: If time is entered above; I have spent that time in minutes in the direct care of this critically ill patient, excluding procedure time. ED Disposition Clinical Impression: Throat pain, Dysphasia Disposition: DC-09 OP ADMIT IP TO THIS HOSP Is pt being admited?: Yes Does the pt Need Aspirin: No Condition: Fair Referrals: PRIMARY CARE, [Primary Care Provider] - 3-5 Days Time of Disposition: 01:45 (Hospitalist notified (Dr Bourgeois))
[2020-01-12 23:07] LABS: Basophils # (Auto) 0.1 K/mm3 (0.0-0.1); Basophils % (Auto) 1.1 % (0.0-1.8); Eosinophils # (Auto) 0.2 K/mm3 (0.0-0.4); Eosinophils % (Auto) 3.1 % (0.0-4.3); Hemoglobin 10.6 gm/dl (11.8-15.2); Lymphocytes # (Auto) 1.4 K/mm3 (1.2-5.4); Lymphocytes % (Auto) 21.1 % (13.4-35.0); Mean Corpuscular HGB Conc 31 % (32-34); Mean Corpuscular Volume 70 fl (84-94); Monocytes # (Auto) 0.7 K/mm3 (0.0-0.8); Platelet Count 278 K/mm3 (140-440); Red Blood Count 4.83 M/mm3 (3.65-5.03)
[2020-01-12 23:44] LABS: BUN/Creatinine Ratio 23; Blood Urea Nitrogen 9 mg/dL (9-20); Calcium 8.5 mg/dL (8.4-10.2); Hemolysis Index 150
--- NOTE | 2020-01-13 01:01 | Cat Scan Report ---
CT NECK WITH INTRAVENOUS CONTRAST AND MULTIPLANAR RECONSTRUCTION CLINICAL HISTORY: MAIN TECHNIQUE: 3.75 mm thick contiguous axial scans were obtained from the skull base down to the aortic arch during intravenous contrast administration. In addition to evaluation of axial source images sagittal and c oronal multiplanar reconstructions were produced and reviewed for this report. All CT imaging studies performed at this facility utilize dose modulation, iterative reconstruction o r weight based dosing, if appropriate, to obtain the lowest achievable radiation dose. 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 The obliquity of the images is limiting factor on this study. No abnormalities are seen along the course of the airway. Nasopharynx, oropharynx, hypopharynx, laryn x and visualized portions of the subglottic airway all have an unremarkable appearance. There is no i ndication of tonsillar enlargement. There is no evidence of retropharyngeal or parapharyngeal abscess . The visualized portions of the mid and proximal thoracic esophagus are dilated and fluid-filled. Poss ibility of distal esophageal stricture or achalasia should be considered. There is no indication of cervical lymphadenopathy. No abnormalities are seen in evaluation of the oral cavity and tongue. The floor the mouth has a norm al appearance. The parotid and submandibular salivary glands have a normal appearance. Evaluation of the nasal cavity reveals no abnormality. The paranasal sinuses are free from inflammato ry mucosal disease. Evaluation of the orbits reveals no abnormality. The thyroid gland is normal in size and homogeneous in attenuation. No focal thyroid lesions are iden tified. There is an exaggerated thoracic kyphosis and increased cervical lordosis. Anterior osteophyte format ion is observed at multiple levels. There is no indication of central canal stenosis. Evaluation of the lung apices reveals no abnormality. There is no indication of lung nodule or infilt rate. Marked elevation of the right hemidiaphragm is noted. Evaluation of the intracranial structures is remarkable for prominent ventriculomegaly with dilatatio n of the lateral ventricles, third ventricle and fourth ventricle. This is unchanged dating back thro [facility] head CT 03/20/2019. Enhancement of normal vascular structures is demonstrated. No areas of abnormal contrast enhancement are identified. IMPRESSION: 1. The examination is limited secondary to difficulties in patient positioning as described above. 2. Dilatation of fluid-filled thoracic esophagus is noted suggesting possible achalasia or distal eso phageal stricture. This is incompletely evaluated on CT neck. Patient may be at risk for aspiration. 3. No additional abnormalities are identified. Signer Name: Shaq Zamora MD Signed: 01/13/2020 12:57 AM Workstation Name: [id number]
[2020-01-13] MEDS ORDERED: ACETAMINOPHEN 325 MG TAB PO PRN (01:52)
--- NOTE | 2020-01-13 02:06 | History and Physical Report ---
History of Present Illness Date of examination: 01/13/20 Date of admission: 01/13/2020 Chief complaint: Sore throat History of present illness: 54-year-old male with known history of GERD ,traumatic brain injury and cerebral proxy resident of an assisted living facility was brought in today because of throat pain. Patient unable to give a very good history because of his history of cerebral palsy. However I was able to indicate that he has pain in his throat which has been ongoing for about 2 days. Denies any fever or chills, no chest pain or shortness of breath, no nausea or vomiting and no diarrhea. Work-up in the emergency room including CT scan of the neck indicates possible achalasia versus esophageal stricture. Past History Past Medical History: GERD, other (Hydrocephalus, WAP-xebzzcoccj-rukqx, overactive bladder, left hand contracture, cerebral palsy, quadriplegia) Past Surgical History: No surgical history Social history: no significant social history Family history: no significant family history Medications and Allergies Allergies Allergy/AdvReac Type Severity Reaction Status Date / Time No Known Allergies Allergy Unverified 09/04/13 12:05 Home Medications Medication Instructions Recorded Confirmed Last Taken Type Nystatin [Nystop Powder] 100,000 gm PO DAILY 09/04/13 01/13/20 10/02/15 History Omeprazole [PriLOSEC] 40 mg PO DAILY 09/04/13 01/13/20 10/04/15 10:00 History Glycopyrrolate [Robinul] 2 mg PO BID 09/06/19 01/13/20 Unknown History Ketoconazole [Ketoconazole shampoo] 120 ml TP PRN 09/06/19 01/13/20 Unknown History Famotidine [Pepcid] 20 mg PO BID #60 tablet 09/20/19 01/13/20 Unknown Rx Lactulose 10 gm PO BID #1000 ml 09/20/19 01/13/20 Unknown Rx Fesoterodine Fumarate ER (Nf) 8 mg PO DAILY 01/13/20 01/13/20 Unknown History [Toviaz ER (Nf)] Ondansetron [Zofran Odt] 4 mg PO TID 01/13/20 01/13/20 Unknown History Vitamin D3 1,000 UNIT TAB 1 tab PO BID 01/13/20 01/13/20 Unknown History polyethylene glycoL 3350 [Miralax 17 gm PO QDAY 01/13/20 01/13/20 Unknown History 3350] traMADoL [Ultram] 50 mg PO HS 01/13/20 01/13/20 Unknown History Review of Systems ROS unobtainable: due to mental status Exam - Constitutional Vitals: Temp Pulse Resp BP Pulse Ox 97.9 F 98 H 26 H 144/91 96 01/12/20 22:39 01/13/20 01:00 01/13/20 01:00 01/13/20 01:00 01/12/20 22:38 General appearance: Present: no acute distress, well-nourished - EENT Eyes: Present: EOM intact. Absent: scleral icterus ENT: hearing intact, clear oral mucosa, dentition normal - Neck Neck: Present: supple, normal ROM - Respiratory Respiratory effort: normal Respiratory: bilateral: CTA - Cardiovascular Rhythm: regular Heart Sounds: Present: S1 & S2. Absent: gallop, systolic murmur, diastolic murmur, rub - Extremities Extremities: no ischemia, pulses intact, pulses symmetrical, No edema, Full ROM Extremity abnormal: ulceration (Healing wound on the lateral aspect of the left ankle) Peripheral Pulses: within normal limits - Abdominal General gastrointestinal: Present: soft, non-tender, non-distended. Absent: mass - Integumentary Integumentary: Present: clear, warm, dry. Absent: jaundice, rash - Musculoskeletal Musculoskeletal: other (Patient is quadriplegic and contracted in extremities) - Psychiatric Psychiatric: cooperative - Neurologic Neurologic: CNII-XII intact, other (Quadriplegic) Results - Labs CBC & Chem 7: 01/12/20 22:30 01/12/20 22:30 Labs: Abnormal lab results 01/12/20 01/12/20 Range/Units 22:30 22:30 Hgb 10.6 L (11.8-15.2) gm/dl Hct 34.0 L (35.5-45.6) % MCV 70 L (84-94) fl MCH 22 L (28-32) pg MCHC 31 L (32-34) % RDW 17.0 H (13.2-15.2) % [place] % (Auto) 11.0 H (0.0-7.3) % Potassium 5.1 H (3.6-5.0) mmol/L Creatinine 0.4 L (0.8-1.5) mg/dL Assessment and Plan - Patient Problems (1) Throat pain Current Visit: Yes Status: Acute Plan to address problem: CT scan of the neck shows possible achalasia versus esophageal stricture. Will request gastroenterology evaluation. (2) Cerebral palsy Current Visit: No Status: Acute Qualifiers: Cerebral palsy type: spastic quadriplegic Qualified Code(s): G80.0 - Spastic quadriplegic cerebral palsy Plan to address problem: Stable. Patient has known history of trauma traumatic brain injury (3) GERD (gastroesophageal reflux disease) Current Visit: No Status: Acute Plan to address problem: We will place patient on proton pump inhibitor. (4) DVT prophylaxis Current Visit: No Status: Acute Plan to address problem: We will place patient on sequential compression device. (5) Full code status Current Visit: Yes Status: Acute
[2020-01-13] MEDS: SODIUM CHLORIDE 0.9% 1000 ML 1,000 ML IV SCH ×2 (02:18→17:05)
[2020-01-13] MEDS: ONDANSETRON 4 MG/2 ML INJ IV PRN ×2 (03:00→05:44)
[2020-01-13] MEDS ORDERED: ONDANSETRON 4 MG/2 ML INJ ONE (03:02)
[2020-01-13] MEDS: MORPHINE 2 MG/1 ML INJ IV PRN (05:44)
[2020-01-13] MEDS: PANTOPRAZOLE 40 MG INJ IV SCH ×2 (12:02→23:16)
--- NOTE | 2020-01-13 12:46 | Event Note ---
Date: 01/13/20 Patient seen and examined no new distress noted. Awaiting GI evaluation.
--- NOTE | 2020-01-13 21:31 | Gastroenterology Consultation ---
History of Present Illness - Reason for Consult Consult date: 01/13/[address] Requesting physician: REBECA TEE - History of Present Illness The patient was admitted with throat pain. He is poorly verbal, but does understand speech, and can communicate somewhat. It appears this has been going on for a few days. His last EGD in the system was about 2014 ([place]) and the patient has a hx of Barretts/hiatal hernia. His CT on admit shows a dilated esophagus with fluid and air (though the patient has no emesis, nor hematemesis, and lungs are relatively clear). He has not had a feeding tube that I can tell, but there appears to be a chronic dysphagia history per the chart. Past History Past Medical History: GERD, other (Hydrocephalus, ALC-cyjbtqhows-jwstt, overactive bladder, left hand contracture, cerebral palsy, quadriplegia) Past Surgical History: No surgical history Social history: no significant social history Family history: no significant family history Medications and Allergies Allergies Allergy/AdvReac Type Severity Reaction Status Date / Time No Known Allergies Allergy Unverified 09/04/13 12:05 Home Medications Medication Instructions Recorded Confirmed Last Taken Type Nystatin [Nystop Powder] 100,000 gm PO DAILY 09/04/13 01/13/20 10/02/15 History Omeprazole [PriLOSEC] 40 mg PO DAILY 09/04/13 01/13/20 10/04/15 10:00 History Glycopyrrolate [Robinul] 2 mg PO BID 09/06/19 01/13/20 Unknown History Ketoconazole [Ketoconazole shampoo] 120 ml TP PRN 09/06/19 01/13/20 Unknown History Famotidine [Pepcid] 20 mg PO BID #60 tablet 09/20/19 01/13/20 Unknown Rx Lactulose 10 gm PO BID #1000 ml 09/20/19 01/13/20 Unknown Rx Fesoterodine Fumarate ER (Nf) 8 mg PO DAILY 01/13/20 01/13/20 Unknown History [Toviaz ER (Nf)] Ondansetron [Zofran Odt] 4 mg PO TID 01/13/20 01/13/20 Unknown History Vitamin D3 1,000 UNIT TAB 1 tab PO BID 01/13/20 01/13/20 Unknown History polyethylene glycoL 3350 [Miralax 17 gm PO QDAY 01/13/20 01/13/20 Unknown History 3350] traMADoL [Ultram] 50 mg PO HS 01/13/20 01/13/20 Unknown History Active Meds: Active Medications Acetaminophen (Tylenol) 650 mg PO Q4H PRN PRN Reason: Pain MILD(1-3)/Fever >100.5/ESCALERA Sodium Chloride (Nacl 0.9% 1000 Ml) 1,000 mls @ 75 mls/hr IV DIRECT [facility] Last Admin: 01/13/20 17:05 Dose: 75 mls/hr Documented by: Morphine Sulfate (Morphine) 2 mg IV Q4H PRN PRN Reason: Pain, Moderate (4-6) Last Admin: 01/13/20 05:44 Dose: 2 mg Documented by: Ondansetron HCl (Zofran) 4 mg IV Q8H PRN PRN Reason: Nausea And Vomiting Last Admin: 01/13/20 05:44 Dose: 4 mg Documented by: Pantoprazole Sodium (Protonix) 40 mg IV BID [facility] Last Admin: 01/13/20 12:02 Dose: 40 mg Documented by: Sodium Chloride (Sodium Chloride Flush Syringe 10 Ml) 10 ml IV BID [facility] Last Admin: 01/13/20 12:02 Dose: 10 ml Documented by: Sodium Chloride (Sodium Chloride Flush Syringe 10 Ml) 10 ml IV PRN PRN PRN Reason: LINE FLUSH I HAVE REVIEWED/RECONCILED MEDICATIONS Review of Systems - Review of Systems ROS unobtainable: due to mental status Exam - Constitutional Vital Signs: Temp Pulse Resp BP Pulse Ox 98.1 F 97 H 16 122/79 97 01/13/20 16:23 01/13/20 16:23 01/13/20 16:23 01/13/20 16:23 01/13/20 16:23 General appearance: no acute distress, other (Severe contractures, laith LUE) - EENT Eyes: PERRL, EOM intact ENT: hearing intact, poor dentition, no thrush - Neck Neck: supple, normal ROM - Respiratory Respiratory effort: normal Respiratory: bilateral: CTA - Cardiovascular Rhythm: regular Heart Sounds: Present: S1 & S2 Extremities: no ischemia, No edema - Gastrointestinal General gastrointestinal: Present: soft, non-tender, non-distended - Integumentary Integumentary: Present: clear, warm, dry - Neurologic Neurological: oriented to person - Labs CBC & Chem 7: 01/12/20 22:30 01/12/20 22:30 Lab Results: Laboratory Results - last 24 hr 01/12/20 01/12/20 22:30 22:30 WBC 6.5 RBC 4.83 Hgb 10.6 L Hct 34.0 L MCV 70 L MCH 22 L MCHC 31 L RDW 17.0 H Plt Count 278 Lymph % (Auto) 21.1 [place] % (Auto) 11.0 H Eos % (Auto) 3.1 Baso % (Auto) 1.1 Lymph # 1.4 [place] # 0.7 Eos # 0.2 Baso # 0.1 Seg Neutrophils % 63.7 Seg Neutrophils # 4.1 Sodium 140 Potassium 5.1 H Chloride 106.4 Carbon Dioxide 23 Anion Gap 16 BUN 9 Creatinine 0.4 L Estimated GFR > 60 BUN/Creatinine Ratio 23 Glucose 100 Calcium 8.5 Assessment and Plan - Patient Problems (1) Abnormal CT scan, esophagus Current Visit: Yes Status: Acute Plan to address problem: - Doubt achalasia, but may have pseudoachalasia given body habitus, with compression of the distal esophagus. - With hx of Barretts, and hiatal hernia, will perform EGD to evaluate. - Continue NPO, and IV protonix for now.
[2020-01-14] MEDS: MORPHINE 2 MG/1 ML INJ IV PRN (02:26)
[2020-01-14] MEDS: SODIUM CHLORIDE 0.9% 1000 ML 1,000 ML IV SCH (06:12)
[2020-01-14 09:04] LABS: Basophils # (Auto) 0.1 K/mm3 (0.0-0.1); Basophils % (Auto) 0.8 % (0.0-1.8); Eosinophils # (Auto) 0.3 K/mm3 (0.0-0.4); Eosinophils % (Auto) 4.9 % (0.0-4.3); Hematocrit 34.1 % (35.5-45.6); Hemoglobin 10.6 gm/dl (11.8-15.2); Lymphocytes # (Auto) 1.6 K/mm3 (1.2-5.4); Lymphocytes % (Auto) 25.8 % (13.4-35.0); Mean Corpuscular HGB Conc 31 % (32-34); Monocytes # (Auto) 0.5 K/mm3 (0.0-0.8); Monocytes % (Auto) 7.6 % (0.0-7.3); Platelet Count 263 K/mm3 (140-440); Red Cell Distribution Width 16.8 % (13.2-15.2)
[2020-01-14] MEDS: PANTOPRAZOLE 40 MG INJ IV SCH (09:12)
[2020-01-14 09:39] LABS: Mean Corpuscular Volume 70 fl (84-94)
[2020-01-14 09:59] LABS: INR 1.05 (0.87-1.13)
[2020-01-14 10:00] LABS: BUN/Creatinine Ratio 25; Blood Urea Nitrogen 10 mg/dL (9-20); Calcium 8.5 mg/dL (8.4-10.2); Hemolysis Index 13
[2020-01-14] MEDS ORDERED: SODIUM CHLORIDE 0.9% 1000 ML 1,000 ML IV SCH (13:00)
--- NOTE | 2020-01-14 13:44 | Progress Note ---
Assessment and Plan Assessment and plan: 54-year-old male with known history of GERD ,traumatic brain injury and cerebral proxy resident of an assisted living facility was brought in today because of throat pain. Patient unable to give a very good history because of his history of cerebral palsy. However I was able to indicate that he has pain in his throat which has been ongoing for about 2 days. Denies any fever or chills, no chest pain or shortness of breath, no nausea or vomiting and no diarrhea. Work-up in the emergency room including CT scan of the neck indicates possible achalasia versus esophageal stricture. Per GI The patient was admitted with throat pain. He is poorly verbal, but does understand speech, and can communicate somewhat. It appears this has been going on for a few days. His last EGD in the system was about 2014 ([place]) and the patient has a hx of Barretts/hiatal hernia. His CT on admit shows a dilated esophagus with fluid and air (though the patient has no emesis, nor hematemesis, and lungs are relatively clear). He has not had a feeding tube that I can tell, but there appears to be a chronic dysphagia history per the chart. Patient was evaluated by GI and plan for endoscopy today to further evaluate Doubt achalasia, but may have pseudoachalasia given body habitus, with compression of the distal esophagus. With hx of Barretts, and hiatal hernia, will perform EGD to evaluate. Follow-up plan based on findings of the EGD. Anticipate discharge later today. Abnormal CT scan, esophagus Throat pain-resolved Cerebral palsy GERD (gastroesophageal reflux disease) History Interval history: Patient seen and examined this morning does not complain of any further difficulty swallowing. Hospitalist Physical - Physical exam Narrative exam: VITAL SIGNS: Reviewed. GENERAL: The patient appears normally developed, cachectic and severely contracted vital signs as documented. HEAD: No signs of head trauma. EYES: Pupils are equal. Extraocular motions intact. EARS: Hearing grossly intact. MOUTH: Oropharynx is normal. NECK: No adenopathy, no JVD. CHEST: Chest with clear breath sounds bilaterally. No wheezes, rales, or rhonchi. CARDIAC: Regular rate and rhythm. S1 and S2, without murmurs, gallops, or rubs. VASCULAR: No Edema. Peripheral pulses normal and equal in all extremities. ABDOMEN: Soft, non tender and non distended. No rebound or guarding, and no masses palpated. Bowel Sounds normal. MUSCULOSKELETAL: Upper and lower extremities contracted NEUROLOGIC EXAM: Alert and oriented x 3, unable to fully perform. Speech normal but chronically slurred. Follows commands. PSYCHIATRIC: Mood normal. SKIN: detail exam as documented in skin assessment - Constitutional Vitals: Temp Pulse Resp BP Pulse Ox 98.0 F 84 18 149/88 99 01/14/20 11:25 01/14/20 11:25 01/14/20 11:25 01/14/20 11:25 01/14/20 11:25 General appearance: Present: no acute distress, well-nourished Results - Labs CBC & Chem 7: 01/14/20 07:43 01/14/20 07:43 Labs: Laboratory Last Values WBC 6.4 K/mm3 (4.5-11.0) 01/14/20 07:43 RBC 4.90 M/mm3 (3.65-5.03) 01/14/20 07:43 Hgb 10.6 gm/dl (11.8-15.2) L 01/14/20 07:43 Hct 34.1 % (35.5-45.6) L 01/14/20 07:43 MCV 70 fl (84-94) L 01/14/20 07:43 MCH 22 pg (28-32) L 01/14/20 07:43 MCHC 31 % (32-34) L 01/14/20 07:43 RDW 16.8 % (13.2-15.2) H 01/14/20 07:43 Plt Count 263 K/mm3 (140-440) 01/14/20 07:43 Lymph % (Auto) 25.8 % (13.4-35.0) 01/14/20 07:43 [place] % (Auto) 7.6 % (0.0-7.3) H 01/14/20 07:43 Eos % (Auto) 4.9 % (0.0-4.3) H 01/14/20 07:43 Baso % (Auto) 0.8 % (0.0-1.8) 01/14/20 07:43 Lymph # 1.6 K/mm3 (1.2-5.4) 01/14/20 07:43 [place] # 0.5 K/mm3 (0.0-0.8) 01/14/20 07:43 Eos # 0.3 K/mm3 (0.0-0.4) 01/14/20 07:43 Baso # 0.1 K/mm3 (0.0-0.1) 01/14/20 07:43 Seg Neutrophils % 60.9 % (40.0-70.0) 01/14/20 07:43 Seg Neutrophils # 3.9 K/mm3 (1.8-7.7) 01/14/20 07:43 PT 13.5 Sec. (12.2-14.9) 01/14/20 07:43 INR 1.05 (0.87-1.13) 01/14/20 07:43 Sodium 140 mmol/L (137-145) 01/14/20 07:43 Potassium 3.8 mmol/L (3.6-5.0) D 01/14/20 07:43 Chloride 104 mmol/L (98-107) 01/14/20 07:43 Carbon Dioxide 23 mmol/L (22-30) 01/14/20 07:43 Anion Gap 17 mmol/L 01/14/20 07:43 BUN 10 mg/dL (9-20) 01/14/20 07:43 Creatinine 0.4 mg/dL (0.8-1.5) L 01/14/20 07:43 Estimated GFR > 60 ml/min 01/14/20 07:43 BUN/Creatinine Ratio 25 % 01/14/20 07:43 Glucose 71 mg/dL (75-100) L 01/14/20 07:43 Calcium 8.5 mg/dL (8.4-10.2) 01/14/20 07:43 Vincent/IV: Voiding Method Urinal IV Catheter Type [Right INT / Saline Lock Forearm] Active Medications - Current Medications Current Medications: Generic Name Dose Route Start Last Admin Trade Name Freq PRN Reason Stop Dose Admin Acetaminophen 650 mg 01/13/20 01:52 Tylenol PO Q4H PRN Pain MILD(1-3)/Fever >100.5/ESCALERA Sodium Chloride 1,000 mls @ 75 mls/hr 01/13/20 02:00 01/14/20 06:12 Nacl 0.9% 1000 Ml IV 75 mls/hr DIRECT NATALIE Administration Sodium Chloride 1,000 mls @ 50 mls/hr 01/14/20 13:00 Nacl 0.9% 1000 Ml IV DIRECT NATALIE Morphine Sulfate 2 mg 01/13/20 01:52 01/14/20 02:26 Morphine IV 2 mg Q4H PRN Administration Pain, Moderate (4-6) Ondansetron HCl 4 mg 01/13/20 01:52 01/13/20 05:44 Zofran IV 4 mg Q8H PRN Administration Nausea And Vomiting Pantoprazole Sodium 40 mg 01/13/20 10:00 01/14/20 09:12 Protonix IV 40 mg BID NATALIE Administration Sodium Chloride 10 ml 01/13/20 10:00 01/14/20 09:14 Sodium Chloride Flush Syringe 10 Ml IV 10 ml BID NATALIE Administration Sodium Chloride 10 ml 01/13/20 01:52 Sodium Chloride Flush Syringe 10 Ml IV PRN PRN LINE FLUSH Nutrition/Malnutrition Assess - Dietary Evaluation Nutrition/Malnutrition Findings: Nutrition Notes Start: 01/13/20 11:25 Freq: Status: Active Protocol: Document 01/13/20 11:25 LP (Rec: 01/13/20 11:43 LP [id number]) Nutrition Notes 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 Pt unable to speak clearly but able to choose from options. Pt not eating well. Vomiting noted. Pt would like to try supplement. Burn Absent Trauma Absent GI Symptoms Vomiting Current % PO Negligible Minimum of two criteria No physical signs of malnutrition #1 Nutrition Diagnosis Inadequate oral intake Etiology N/V As Evidenced by Signs and Symptoms Pt not eating well due to vomiting and nausea Is patient on ventilator? No Is Patient Ambulatory and/or Out of Bed Yes REE-([facility]-ambulatory/OOB) [ [id number] NUTR.[id number]] Calculation Used for Recommendations [facility] Additional Notes Protein needs are 49-61g (0.8- 1g/kg) Fluid needs 1ml/kcal Nutrition Intervention Change Diet Order: Advance diet as feasible Add Supplement/Snack (indicate name/kcal Ensure Enlive BID /protein ) Provides kCal: 700 Provides Protein (gm) 40 Goal #1 Advance diet as feasible Anticipated Discharge Needs: Regular Follow-Up By: 01/15/20 Additional Comments Follow for intakes
--- NOTE | 2020-01-14 13:56 | Discharge Summary ---
Providers - Providers Date of Admission: 01/13/20 02:11 Attending physician: KELLI VELAZQUEZ MD 01/13/20 01:52 Consult to Physician [CONS] Routine Comment: Consulting Provider: RODY CAZARES Physician Instructions: Reason For Exam: THROAT PAIN, H/O GERD,?ESOPHAGEAL STRICTURE 01/13/20 07:28 Consult to Wound/ET Nurse [CONS] Routine Reason For Exam: wound eval Primary care physician: DIE CASTER Hospitalization Condition: Fair Hospital course: 4-year-old male with known history of GERD ,traumatic brain injury and cerebral proxy resident of an assisted living facility was brought in today because of throat pain. Patient unable to give a very good history because of his history of cerebral palsy. However I was able to indicate that he has pain in his throat which has been ongoing for about 2 days. Denies any fever or chills, no chest pain or shortness of breath, no nausea or vomiting and no diarrhea. Work-up in the emergency room including CT scan of the neck indicates possible achalasia versus esophageal stricture. Per GI The patient was admitted with throat pain. He is poorly verbal, but does understand speech, and can communicate somewhat. It appears this has been going on for a few days. His last EGD in the system was about 2014 ([place]) and the patient has a hx of Barretts/hiatal hernia. His CT on admit shows a dilated esophagus with fluid and air (though the patient has no emesis, nor hematemesis, and lungs are relatively clear). He has not had a feeding tube that I can tell, but there appears to be a chronic dysphagia history per the chart. Patient was evaluated by GI and plan for endoscopy today to further evaluate Doubt achalasia, but may have pseudoachalasia given body habitus, with compr ession of the distal esophagus. With hx of Barretts, and hiatal hernia, will perform EGD to evaluate. Follow-up plan based on findings of the EGD. Anticipate discharge later today. Abnormal CT scan, esophagus Throat pain-resolved Cerebral palsy GERD (gastroesophageal reflux disease) Disposition: TO HOME OR SELFCARE Time spent for discharge: 35 mins Exam - Constitutional Vitals: Temp Pulse Resp BP Pulse Ox 98.0 F 84 18 149/88 99 01/14/20 11:25 01/14/20 11:25 01/14/20 11:25 01/14/20 11:25 01/14/20 11:25 Plan Activity: advance as tolerated, fall precautions Diet: per dietitian instruction Special Instructions: record daily BP diary Follow up with: PRIMARY MD JOSE [Primary Care Provider] - 3-5 Days RODY CAZARES MD [Staff Physician] - 7 Days
[2020-01-14] MEDS ORDERED: fentaNYL 100 MCG/2 ML INJ ONE (14:06)
[2020-01-14] MEDS ORDERED: propofoL 200 MG/20 ML VIAL IV ONE ×2 (14:07)
--- NOTE | 2020-01-14 14:22 | Post Operative Note ---
Pre-op diagnosis: Abnormal CT Post-op diagnosis: other (Tortuous esophagus, Barretts) Findings: 1. Severely tortuous esophagus as seen on CT; no obstruction or mass; no signs of achalsia 2. 1cm Barretts at GE jxn, cold bx; mucosa not nodular 3. Medium hiatal hernia 4. Normal stomach/duodenum Procedure: EGD with cold biopsy Anesthesia: MAC Surgeon: RODY CAZARES Estimated blood loss: minimal Pathology: list (1. Lower third esophagus) Specimen disposition: to lab Condition: stable Disposition: floor (Recs: 1. OK to resume current dysphagia diet. 2. Continue daily antiacid. 3. OK to d/c patient home today.)
--- NOTE | 2020-01-14 14:34 | Operative Report ---
ENDOSCOPY REPORT PROCEDURE PERFORMED: Esophagogastroduodenoscopy with cold biopsy. PREOPERATIVE DIAGNOSIS: Abnormal CT scan with dilated esophagus. POSTOPERATIVE DIAGNOSES: Tortuous esophagus, Allan's, hiatal hernia. ENDOSCOPIST: Rommel Olivera MD INSTRUMENT: Olympus video endoscope. MEDICATIONS: MAC anesthesia by [facility]esthesia [facility]. COMPLICATIONS: No apparent complications. ESTIMATED BLOOD LOSS: Minimal. SPECIMENS: Lower third of the esophagus for Allan's esophagus, rule out dysplasia. IMPLANTS: None. ASSISTANTS: None. CONDITION AT COMPLETION: Stable. TECHNIQUE: The patient's power of claims attorney/caregiver was informed of the risks and benefits of the procedure. She gave verbal consent to proceed. The patient was unable to provide consent due to mental status. At that point, the above sedative medications were given. His vital signs remained stable throughout the procedure. The instrument was advanced from the mouth to the second portion of the duodenum under direct visualization. At that point, the bowel was insufflated and the endoscope was slowly withdrawn. FINDINGS: 1. Normal duodenum. 2. Medium size hiatal hernia in the stomach, otherwise normal stomach. 3. A 1 cm of likely Allan's esophagus at the gastroesophageal junction, extending into the lower third of the esophagus; cold biopsy was taken, but the mucosa was not nodular. 4. Severely tortuous esophagus as seen on the CT scan; there was no obstruction, mass, or signs of achalasia. RECOMMENDATIONS: 1. Okay to resume current dysphagia diet. 2. Continue daily antacid. 3. Okay to discharge the patient home today. JOB# [id number] JUDSON/NTS
--- NOTE | 2020-01-14 16:11 | Post Anesthesia Evaluation ---
- Post Anesthesia Evaluation Patient Participated: Yes (baseline mentation) Airway Patent: Yes Stable Respiratory Function: Yes Nausea/Vomiting: No Temp > 96.8F: Yes Pain Manageable: Yes Adequeate Hydration: Yes Anesthesia Complications: No
[2020-01-14 18:33] VITALS: BP 149/84
--- NOTE | 2020-01-15 08:15 | Anesthesia Day of Surgery ---
Anesthesia Day of Surgery - Day of Surgery Patient Examined: Yes (late entry for anesthetic performed 01/14/20) Patient H&P Reviewed: Yes Patient is NPO: Yes
--- NOTE | 2020-01-15 08:15 | Anesthesia Consultation ---
Anesthesia Consult and Med Hx Date of service: 01/14/20 (late entry for anesthetic performed 01/14/20) - Airway Anesthetic Teeth Evaluation: Poor ROM Head & Neck: Adequate Mental/Hyoid Distance: Adequate Mallampati Class: Class III Intubation Access Assessment: Possibly Difficult - Pulmonary Exam CTA: Yes - Cardiac Exam Cardiac Exam: RRR - Pre-Operative Health Status ASA Pre-Surgery Classification: ASA3 Proposed Anesthetic Plan: MAC - Pulmonary Hx Respiratory Symptoms: No - Cardiovascular System Hx Hypertension: No Hx Heart Attack/AMI: No Hx Percutaneous Transluminal Coronary Angioplasty (PTCA): No Hx Cardia Arrhythmia: No - Central Nervous System Hx Neuromuscular Disorder: Yes (quadraplegia, cerebral palsy) Hx Seizures: No CVA: No - Gastrointestinal Hx Gastroesophageal Reflux Disease: Yes (w/ hiatal hernia and archuleta's esophagus) - Endocrine Hx Renal Disease: No Hx Liver Disease: No Hx Insulin Dependent Diabetes: No Hx Non-Insulin Dependent Diabetes: No Hx Thyroid Disease: No - Hematic Hx Anemia: Yes - Other Systems Hx Obesity: No - Additional Comments Anesthesia Medical History Comments: Anesthesia consent obtained from TERI Hanson.
== END 2020-01-14 20:35 | disposition home or self-care (01) ==
LOC: ED 21:57 → 3A 01-13 02:11 → INTOOBSV 01-13 02:11
PROVIDERS: ADMIT Internal Medicine Geriatric Medicine; ATTEND Internal Medicine
DX: R07.0 Pain in throat (principal); K22.70 Barrett's esophagus without dysplasia; K44.9 Diaphragmatic hernia without obstruction or gangrene; K22.8 Other specified diseases of esophagus; G80.0 Spastic quadriplegic cerebral palsy; R93.3 Abnormal findings on diagnostic imaging of other parts of digestive tract; K21.9 Gastro-esophageal reflux disease without esophagitis; Z87.820 Personal history of traumatic brain injury; Z79.899 Other long term (current) drug therapy
CPT/HCPCS: 36415; 43239; 70491; 85025; 85610; 88305; 96374; 96375; 96376; 99285; C9113; G0378; J2270; J2405; J2704; J3010; J7030; Q9967; 80048

== ENCOUNTER 2020-02-16 09:37 | Observation (INO) | payer MEDICARE ==
--- NOTE | 2020-02-16 10:51 | Emergency Department Report ---
ED Chest Pain HPI - General Chief Complaint: Abdominal Pain Stated Complaint: BODY PAIN Time Seen by Provider: 02/16/20 10:38 Source: patient, EMS Mode of arrival: Stretcher Limitations: Physical Limitation - History of Present Illness Initial Comments: 54-year-old male with history of moderate MR, cerebral palsy, GERD, spastic quadriplegia, overactive bladder, [facility] with complaint of chest pain. He denies any difficulty breathing, nausea or vomiting. Patient unable to give a good history. MD Complaint: chest pain -: This morning Onset: during rest Pain Location: epigastric Pain Radiation: none Severity: moderate Quality: other (Unable to describe) Consistency: constant Improves With: nothing Worsens With: nothing re: denies: nausea, vomting, dyspnea - Related Data Home Medications Medication Instructions Recorded Confirmed Last Taken Nystatin [Nystop Powder] 100,000 gm PO DAILY 09/04/13 01/13/20 10/02/15 Glycopyrrolate [Robinul] 2 mg PO BID 09/06/19 01/13/20 Unknown Ketoconazole [Ketoconazole shampoo] 120 ml TP PRN 09/06/19 01/13/20 Unknown Fesoterodine Fumarate ER (Nf) 8 mg PO DAILY 01/13/20 01/13/20 Unknown [Toviaz ER (Nf)] Ondansetron [Zofran ODT TAB] 4 mg PO TID 01/13/20 01/13/20 Unknown Vitamin D3 1,000 UNIT TAB 1 tab PO BID 01/13/20 01/13/20 Unknown polyethylene glycoL 3350 [Miralax 17 gm PO QDAY 01/13/20 01/13/20 Unknown 3350] traMADoL [Ultram 50 MG tab] 50 mg PO HS 01/13/20 01/13/20 Unknown Previous Rx's Medication Instructions Recorded Last Taken Type Famotidine [Pepcid] 20 mg PO BID #60 tablet 09/20/19 Unknown Rx Lactulose 10 gm PO BID #1000 ml 09/20/19 Unknown Rx Allergies Allergy/AdvReac Type Severity Reaction Status Date / Time No Known Allergies Allergy Unverified 09/04/13 12:05 ED Review of Systems ROS: Stated complaint: BODY PAIN Other details as noted in HPI Comment: All other systems reviewed and negative Constitutional: denies: fever Respiratory: denies: shortness of breath Cardiovascular: chest pain Genitourinary: other (Reports difficulty urinating) 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, moderate MR, hydrocephalus, cerebral palsy, quadriplegic,, constipation, 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 - Surgical History Additional Surgical History: unknown - Social History Smoking Status: Never Smoker - Medications Home Medications: Home Medications Medication Instructions Recorded Confirmed Last Taken Type Nystatin [Nystop Powder] 100,000 gm PO DAILY 09/04/13 01/13/20 10/02/15 History Glycopyrrolate [Robinul] 2 mg PO BID 09/06/19 01/13/20 Unknown History Ketoconazole [Ketoconazole shampoo] 120 ml TP PRN 09/06/19 01/13/20 Unknown History Famotidine [Pepcid] 20 mg PO BID #60 tablet 09/20/19 01/13/20 Unknown Rx Lactulose 10 gm PO BID #1000 ml 09/20/19 01/13/20 Unknown Rx Fesoterodine Fumarate ER (Nf) 8 mg PO DAILY 01/13/20 01/13/20 Unknown History [Toviaz ER (Nf)] Ondansetron [Zofran ODT TAB] 4 mg PO TID 01/13/20 01/13/20 Unknown History Vitamin D3 1,000 UNIT TAB 1 tab PO BID 01/13/20 01/13/20 Unknown History polyethylene glycoL 3350 [Miralax 17 gm PO QDAY 01/13/20 01/13/20 Unknown History 3350] traMADoL [Ultram 50 MG tab] 50 mg PO HS 01/13/20 01/13/20 Unknown History ED Physical Exam - General Limitations: Physical Limitation General appearance: alert, in no apparent distress - Head Head exam: Present: atraumatic, normocephalic - Eye Eye exam: Present: normal appearance - ENT ENT exam: Present: mucous membranes moist - Neck Neck exam: Present: normal inspection - Respiratory Respiratory exam: Present: normal lung sounds bilaterally. Absent: respiratory distress - Cardiovascular Cardiovascular Exam: Present: normal rhythm, tachycardia - GI/Abdominal GI/Abdominal exam: Present: soft. Absent: distended, tenderness - Extremities Exam Extremities exam: Present: other (BLE contracted). Absent: pedal edema - Neurological Exam Neurological exam: Present: alert - Psychiatric Psychiatric exam: Present: normal affect, normal mood - Skin Skin exam: Present: warm, dry, intact, normal color ED Course Vital Signs 02/16/20 02/16/20 02/16/20 09:57 10:00 10:15 Temperature Pulse Rate 130 H 129 H 125 H Respiratory 21 28 H 23 Rate Blood Pressure 126/84 126/82 O2 Sat by Pulse 96 96 96 Oximetry 02/16/20 02/16/20 02/16/20 10:30 10:45 10:47 Temperature 97.2 F L Pulse Rate 125 H 124 H Respiratory 27 H 13 Rate Blood Pressure 119/79 119/79 O2 Sat by Pulse 97 97 Oximetry 02/16/20 02/16/20 02/16/20 11:00 11:15 11:30 Temperature Pulse Rate 128 H 133 H 126 H Respiratory 14 31 H 26 H Rate Blood Pressure 134/92 135/84 126/80 O2 Sat by Pulse 97 97 96 Oximetry 02/16/20 02/16/20 02/16/20 11:40 11:46 12:00 Temperature Pulse Rate 113 H 120 H Respiratory 18 22 23 Rate Blood Pressure 166/102 120/78 O2 Sat by Pulse 99 96 96 Oximetry 02/16/20 02/16/20 02/16/20 12:15 12:58 13:00 Temperature Pulse Rate 119 H 127 H 128 H Respiratory 26 H 23 22 Rate Blood Pressure 137/87 137/87 137/87 O2 Sat by Pulse 97 97 96 Oximetry 02/16/20 02/16/20 02/16/20 13:15 13:30 13:45 Temperature Pulse Rate 122 H 121 H 122 H Respiratory 22 25 H 13 Rate Blood Pressure 146/91 139/90 146/97 O2 Sat by Pulse 97 97 97 Oximetry 02/16/20 02/16/20 14:00 14:16 Temperature Pulse Rate 133 H 123 H Respiratory 37 H 16 Rate Blood Pressure 132/71 132/71 O2 Sat by Pulse 98 96 Oximetry - Reevaluation(s) Reevaluation #1: 02/16/20 14:08 Pt had large amount of coffee-ground emesis. - Consultations Consultation #1: 02/16/20 14:56 Discussed case w/ Dr Patel, GI. States pt underwent endoscopy 12/2019 which showed esophagitis. May not need another endoscopy. Will admit to hospitalist. ED Medical Decision Making - Lab Data Result diagrams: 02/16/20 11:04 02/16/20 11:04 - EKG Data -: EKG Interpreted by Sd EKG shows normal: sinus rhythm Rate: tachycardia (rate 127) - EKG Data Interpretation: other (T wave inversions III, aVF) - Radiology Data Radiology results: report reviewed, image reviewed Results not crossing over into ITao, however, CTA Chest is negative for any obvious PE (discussed w/ Dr Watts, radiologist, difficult to visualize due to body habitus) or aortic pathology. CT Abd/Pelvis negative for acute findings. - Medical Decision Making 54-year-old male presents to ED with epigastric pain. Patient had large volume coffee-ground emesis while here in ED. Patient has been tachycardic since arrival. CTA chest was negative for PE or aortic pathology. CT abdomen/ pelvis also negative for any acute findings. Hemoglobin is at 10 which is his baseline. Remainder of labs are unremarkable. Will admit patient for observa tion as he remains tachycardic. Spoke with Dr. Beck, hospitalist, who will admit the patient for further management. - Differential Diagnosis PE, bowel obstruction, UTI Critical care attestation.: If time is entered above; I have spent that time in minutes in the direct care of this critically ill patient, excluding procedure time. ED Disposition Clinical Impression: Upper GI bleed Disposition: - OP ADMIT IP TO THIS HOSP Is pt being admited?: Yes Condition: Stable Referrals: REBEKAH CAMARENA [Other] - 3-5 Days Time of Disposition: 15:03
[2020-02-16] MEDS ORDERED: SODIUM CHLORIDE 0.9% 1000 ML 1,000 ML IV ONE ×2 (11:07→14:38)
[2020-02-16 11:15] LABS: Basophils # (Auto) 0.1 K/mm3 (0.0-0.1); Basophils % (Auto) 0.7 % (0.0-1.8); Eosinophils # (Auto) 0.1 K/mm3 (0.0-0.4); Lymphocytes % (Auto) 9.7 % (13.4-35.0); Mean Corpuscular HGB Conc 30 % (32-34); Monocytes % (Auto) 9.6 % (0.0-7.3); Platelet Count 304 K/mm3 (140-440); Red Blood Count 5.07 M/mm3 (3.65-5.03); Red Cell Distribution Width 18.5 % (13.2-15.2)
[2020-02-16 11:21] LABS: Hematocrit 33.7 % (35.5-45.6); Hemoglobin 10.2 gm/dl (11.8-15.2); Mean Corpuscular Volume 66 fl (84-94)
[2020-02-16 11:31] LABS: INR 1.17 (0.87-1.13)
[2020-02-16 11:32] LABS: Partial Thromboplastin Time 34.2 Sec. (24.2-36.6)
[2020-02-16 11:37] LABS: Alanine Aminotransferase 11 units/L (7-56); Albumin 3.8 g/dL (3.9-5); Blood Urea Nitrogen 23 mg/dL (9-20); Hemolysis Index 35
[2020-02-16 11:39] LABS: BUN/Creatinine Ratio 58; Bilirubin,Direct < 0.2 mg/dL (0-0.2)
[2020-02-16 11:43] LABS: Bilirubin,Urine NEG (Negative); Blood,Urine NEG (Negative); Color,Urine Yellow (Yellow); Mucus,Urine FEW /HPF; Protein,Urine <15 mg/dL mg/dL (Negative)
--- NOTE | 2020-02-16 12:07 | XRay Report ---
CHEST 1 VIEW INDICATION / CLINICAL INFORMATION: chest pain. COMPARISON: 09/20/2019 FINDINGS: SUPPORT DEVICES: None. HEART / MEDIASTINUM: Unchanged LUNGS / PLEURA: There is bibasilar airspace opacity which could represent atelectasis or evolving pne umonia. No pneumothorax. ADDITIONAL FINDINGS: No significant additional findings. IMPRESSION: 1. There is mild basilar airspace opacity which could represent atelectasis or evolving pneumonia. Signer Name: Maikol Mac MD Signed: 02/16/2020 12:03 PM Workstation Name: [id number]
[2020-02-16] MEDS ORDERED: ONDANSETRON 4 MG/2 ML INJ IV ONE (14:05)
[2020-02-16] MEDS ORDERED: PANTOPRAZOLE 40 MG INJ IV ONE (14:13)
--- NOTE | 2020-02-16 17:18 | History and Physical Report ---
History of Present Illness Date of examination: 02/16/20 Date of admission: 02/16/2020 Chief complaint: Coffee-ground emesis x1 this afternoon History of present illness: 54-year-old male with cerebral palsy and mental retardation with multiple contractures sent from senior living for coffee-ground emesis and supportive chest pain. Patient has spastic quadriplegia, multiple contractures. Comes by EMS. No chest pain at the time of my examination. Past History Past Medical History: other (Cerebral palsy, overactive bladder, quadriplegia) Past Surgical History: Other (Not available) Social history: full code, other (Lives in a senior living) Family history: no significant family history Medications and Allergies Allergies Allergy/AdvReac Type Severity Reaction Status Date / Time No Known Allergies Allergy Unverified 09/04/13 12:05 Home Medications Medication Instructions Recorded Confirmed Last Taken Type Nystatin [Nystop Powder] 100,000 gm PO DAILY 09/04/13 02/16/20 10/02/15 History Glycopyrrolate [Robinul] 2 mg PO BID 09/06/19 02/16/20 Unknown History Ketoconazole [Ketoconazole shampoo] 120 ml TP PRN 09/06/19 02/16/20 Unknown History Famotidine [Pepcid] 20 mg PO BID #60 tablet 09/20/19 02/16/20 Unknown Rx Lactulose 10 gm PO BID #1000 ml 09/20/19 02/16/20 Unknown Rx Fesoterodine Fumarate ER (Nf) 8 mg PO DAILY 01/13/20 02/16/20 Unknown History [Toviaz ER (Nf)] Ondansetron [Zofran ODT TAB] 4 mg PO TID 01/13/20 02/16/20 Unknown History Vitamin D3 1,000 UNIT TAB 1 tab PO BID 01/13/20 02/16/20 Unknown History polyethylene glycoL 3350 [Miralax 17 gm PO QDAY 01/13/20 02/16/20 Unknown History 3350] traMADoL [Ultram 50 MG tab] 50 mg PO HS 01/13/20 02/16/20 Unknown History Review of Systems All systems: negative Gastrointestinal: coffee ground emesis Exam - Constitutional Vitals: Temp Pulse Resp BP Pulse Ox 97.2 F L 123 H 16 132/71 96 02/16/20 10:47 02/16/20 14:16 02/16/20 14:16 02/16/20 14:16 02/16/20 14:16 General appearance: Present: no acute distress, well-nourished - EENT Eyes: Present: PERRL ENT: hearing intact, clear oral mucosa - Neck Neck: Present: supple, normal ROM - Respiratory Respiratory effort: normal Respiratory: bilateral: CTA - Cardiovascular Heart rate: 78 Rhythm: regular Heart Sounds: Present: S1 & S2. Absent: rub, click - Extremities Extremities: pulses symmetrical, No edema Peripheral Pulses: within normal limits - Abdominal General gastrointestinal: Present: soft, non-tender, non-distended, normal bowel sounds Male genitourinary: Present: normal - Rectal Rectal Exam: stool brown - Integumentary Integumentary: Present: clear, warm, dry - Musculoskeletal Musculoskeletal: generalized weakness, other - Psychiatric Psychiatric: appropriate mood/affect - Neurologic Neurologic: CNII-XII intact, moves all extremities - Allied Health Allied health notes reviewed: nursing, case management HEART Score - HEART Score History: Slightly suspicious Troponin: Troponin T < 0.010 ng/mL (0.00-0.029) 02/16/20 11:04 Troponin: < normal limit - Critical Actions Critical Actions: 0-3 pts:0.9-1.7%risk of adverse cardiac event.Candidate for discharge Results - Labs CBC & Chem 7: 02/17/20 05:15 02/17/20 05:15 Labs: Laboratory Last Values WBC 10.7 K/mm3 (4.5-11.0) 02/16/20 11:04 RBC 5.07 M/mm3 (3.65-5.03) H 02/16/20 11:04 Hgb 10.2 gm/dl (11.8-15.2) L 02/16/20 11:04 Hct 33.7 % (35.5-45.6) L 02/16/20 11:04 MCV 66 fl (84-94) L 02/16/20 11:04 MCH 20 pg (28-32) L 02/16/20 11:04 MCHC 30 % (32-34) L 02/16/20 11:04 RDW 18.5 % (13.2-15.2) H 02/16/20 11:04 Plt Count 304 K/mm3 (140-440) 02/16/20 11:04 Lymph % (Auto) 9.7 % (13.4-35.0) L 02/16/20 11:04 Craig % (Auto) 9.6 % (0.0-7.3) H 02/16/20 11:04 Eos % (Auto) 1.0 % (0.0-4.3) 02/16/20 11:04 Baso % (Auto) 0.7 % (0.0-1.8) 02/16/20 11:04 Lymph # 1.0 K/mm3 (1.2-5.4) L 02/16/20 11:04 Craig # 1.0 K/mm3 (0.0-0.8) H 02/16/20 11:04 Eos # 0.1 K/mm3 (0.0-0.4) 02/16/20 11:04 Baso # 0.1 K/mm3 (0.0-0.1) 02/16/20 11:04 Seg Neutrophils % 79.0 % (40.0-70.0) H 02/16/20 11:04 Seg Neutrophils # 8.5 K/mm3 (1.8-7.7) H 02/16/20 11:04 PT 15.0 Sec. (12.2-14.9) H 02/16/20 11:04 INR 1.17 (0.87-1.13) H 02/16/20 11:04 APTT 34.2 Sec. (24.2-36.6) 02/16/20 11:04 D-Dimer 259.47 ng/mlDDU (0-234) H 02/16/20 11:04 Sodium 142 mmol/L (137-145) 02/16/20 11:04 Potassium 4.4 mmol/L (3.6-5.0) 02/16/20 11:04 Chloride 107.0 mmol/L (98-107) 02/16/20 11:04 Carbon Dioxide 23 mmol/L (22-30) 02/16/20 11:04 Anion Gap 16 mmol/L 02/16/20 11:04 BUN 23 mg/dL (9-20) H 02/16/20 11:04 Creatinine 0.4 mg/dL (0.8-1.3) L 02/16/20 11:04 Estimated GFR > 60 ml/min 02/16/20 11:04 BUN/Creatinine Ratio 58 % 02/16/20 11:04 Glucose 119 mg/dL (75-100) H 02/16/20 11:04 Calcium 9.0 mg/dL (8.4-10.2) 02/16/20 11:04 Total Bilirubin 0.30 mg/dL (0.1-1.2) 02/16/20 11:04 Direct Bilirubin < 0.2 mg/dL (0-0.2) 02/16/20 11:04 Indirect Bilirubin 0.1 mg/dL 02/16/20 11:04 AST 23 units/L (5-40) 02/16/20 11:04 ALT 11 units/L (7-56) 02/16/20 11:04 Alkaline Phosphatase 110 units/L (35-129) 02/16/20 11:04 Troponin T < 0.010 ng/mL (0.00-0.029) 02/16/20 11:04 Total Protein 7.2 g/dL (6.3-8.2) 02/16/20 11:04 Albumin 3.8 g/dL (3.9-5) L 02/16/20 11:04 Albumin/Globulin Ratio 1.1 % 02/16/20 11:04 Lipase 9 units/L (13-60) L 02/16/20 11:04 Urine Color Yellow (Yellow) 02/16/20 Unknown Urine Turbidity Clear (Clear) 02/16/20 Unknown Urine pH 6.0 (5.0-7.0) 02/16/20 Unknown Ur Specific Gallagher 1.029 (1.003-1.030) 02/16/20 Unknown Urine Protein <15 mg/dl mg/dL (Negative) 02/16/20 Unknown Urine Glucose (UA) Neg mg/dL (Negative) 02/16/20 Unknown Urine Ketones Tr mg/dL (Negative) 02/16/20 Unknown Urine Blood Neg (Negative) 02/16/20 Unknown Urine Nitrite Neg (Negative) 02/16/20 Unknown Urine Bilirubin Neg (Negative) 02/16/20 Unknown Urine Urobilinogen 4.0 mg/dL (<2.0) 02/16/20 Unknown Ur Leukocyte Esterase Neg (Negative) 02/16/20 Unknown Urine WBC (Auto) 2.0 /HPF (0.0-6.0) 02/16/20 Unknown Urine RBC (Auto) 3.0 /HPF (0.0-6.0) 02/16/20 Unknown U Epithel Cells (Auto) < 1.0 /HPF (0-13.0) 02/16/20 Unknown Urine Mucus Few /HPF 02/16/20 Unknown Short CBC 02/16/20 02/16/20 02/17/20 Range/Units 11:04 17:33 01:51 WBC 10.7 (4.5-11.0) K/mm3 Hgb 10.2 L 8.8 L 7.9 L (11.8-15.2) gm/dl Hct 33.7 L 29.2 L 26.3 L (35.5-45.6) % Plt Count 304 (140-440) K/mm3 02/17/20 Range/Units 05:15 WBC 8.5 (4.5-11.0) K/mm3 Hgb 7.6 L (11.8-15.2) gm/dl Hct 25.4 L (35.5-45.6) % Plt Count 230 (140-440) K/mm3 BMP 02/16/20 02/17/20 11:04 05:15 Sodium 142 143 Potassium 4.4 3.6 Chloride 107.0 111.2 H Carbon Dioxide 23 22 BUN 23 H 17 Creatinine 0.4 L 0.3 L Glucose 119 H 100 Calcium 9.0 8.1 L Cardiac Enzymes 02/16/20 Range/Units 11:04 Troponin T < 0.010 (0.00-0.029) ng/mL Liver Function 02/16/20 02/17/20 Range/Units 11:04 05:15 Total Bilirubin 0.30 0.30 (0.1-1.2) mg/dL Direct Bilirubin < 0.2 (0-0.2) mg/dL AST 23 12 (5-40) units/L ALT 11 8 (7-56) units/L Alkaline Phosphatase 110 90 (35-129) units/L Albumin 3.8 L 3.0 L (3.9-5) g/dL Urine 02/16/20 Range/Units Unknown Urine Color Yellow (Yellow) Urine pH 6.0 (5.0-7.0) Ur Specific Gallagher 1.029 (1.003-1.030) Urine Protein <15 mg/dl (Negative) mg/dL Urine Glucose (UA) Neg (Negative) mg/dL - Imaging and Cardiology EKG: report reviewed CT scan - abdomen: report reviewed Imaging and Cardiology: CT abdomen Assessment and Plan Advance Directives: Yes (Full code) VTE prophylaxis?: Chemical Plan of care discussed with patient/family: Yes - Patient Problems (1) Upper GI bleed Current Visit: Yes Status: Acute Plan to address problem: Serial hemoglobin and hematocrit IV Protonix drip GI consult Transfuse if necessary (2) Cerebral palsy Current Visit: No Status: Chronic Qualifiers: Cerebral palsy type: spastic quadriplegic Qualified Code(s): G80.0 - Spastic quadriplegic cerebral palsy Plan to address problem: Supportive care (3) Chest pain Current Visit: Yes Status: Acute Qualifiers: Chest pain type: unspecified Qualified Code(s): R07.9 - Chest pain, u nspecified Plan to address problem: Secondary to reflux esophagitis No Lexiscan Serial troponins (4) Overactive bladder Current Visit: Yes Status: Chronic Plan to address problem: Will resume Toviaz once he is cleared for eating (5) DVT prophylaxis Current Visit: No Status: Acute Plan to address problem: SCDs and GI prophylaxis
[2020-02-16] MEDS ORDERED: METOCLOPRAMIDE 10 MG/2 ML INJ IV PRN (17:21)
[2020-02-16] MEDS ORDERED: ONDANSETRON 4 MG/2 ML INJ IV PRN (17:21)
[2020-02-16] MEDS ORDERED: ACETAMINOPHEN 325 MG TAB PO PRN (17:21)
[2020-02-16] MEDS ORDERED: HYDROmorphone 1 MG/1 ML INJ IV PRN (17:21)
[2020-02-16 18:21] LABS: Hematocrit 29.2 % (35.5-45.6); Hemoglobin 8.8 gm/dl (11.8-15.2)
[2020-02-16] MEDS ORDERED: SODIUM CHLORIDE 0.9% 1000 ML 1,000 ML ONE (19:24)
[2020-02-16] MEDS: PANTOPRAZOLE 80 MG in SODIUM CHLORIDE 0.9% 100 ML IV SCH (19:28)
[2020-02-16] MEDS: SODIUM CHLORIDE 0.9% 1000 ML 1,000 ML IV SCH (19:28)
[2020-02-17 02:41] LABS: Hematocrit 26.3 % (35.5-45.6); Hemoglobin 7.9 gm/dl (11.8-15.2)
[2020-02-17 05:51] LABS: Basophils % (Auto) 0.2 % (0.0-1.8); Eosinophils % (Auto) 0.2 % (0.0-4.3); Hematocrit 25.4 % (35.5-45.6); Hemoglobin 7.6 gm/dl (11.8-15.2); Lymphocytes # (Auto) 0.9 K/mm3 (1.2-5.4); Lymphocytes % (Auto) 10.9 % (13.4-35.0); Mean Corpuscular HGB Conc 30 % (32-34); Monocytes # (Auto) 0.6 K/mm3 (0.0-0.8); Monocytes % (Auto) 6.5 % (0.0-7.3); Platelet Count 230 K/mm3 (140-440); Red Blood Count 3.78 M/mm3 (3.65-5.03); Red Cell Distribution Width 18.8 % (13.2-15.2)
[2020-02-17 05:54] LABS: Mean Corpuscular Volume 67 fl (84-94)
[2020-02-17] MEDS: PANTOPRAZOLE 80 MG in SODIUM CHLORIDE 0.9% 100 ML IV SCH ×2 (06:03→19:24)
[2020-02-17] MEDS: SODIUM CHLORIDE 0.9% 1000 ML 1,000 ML IV SCH ×2 (06:04→14:15)
[2020-02-17 06:11] LABS: Alanine Aminotransferase 8 units/L (7-56); Blood Urea Nitrogen 17 mg/dL (9-20); Calcium 8.1 mg/dL (8.4-10.2); Hemolysis Index 0
[2020-02-17 06:12] LABS: BUN/Creatinine Ratio 57
[2020-02-17] MEDS ORDERED: SODIUM CHLORIDE 0.9% 500 ML 500 ML IV NR (08:07)
[2020-02-17 10:47] LABS: Hematocrit 25.6 % (35.5-45.6); Hemoglobin 7.7 gm/dl (11.8-15.2)
[2020-02-17] MEDS: NYSTATIN POWDER 15 GM TP SCH ×2 (14:13→14:43)
--- NOTE | 2020-02-17 14:48 | Consultation ---
History of Present Illness - Reason for Consult Consult date: 02/17/20 Coffee ground emesis Requesting physician: CASSANDRA FRANKEL - History of Present Illness Mr. Pina is a 54-year-old man with cerebral palsy who lives in a long term. He has a longstanding history of esophageal problems with chronic dysphagia and esophagitis. He underwent an upper endoscopy on January 13 of this year by Dr. Olivera which showed distal esophagitis and a tortuous esophagus. At that time, CT scan had shown air-fluid levels in the esophagus, and patient was complaining of either dysphagia or chest pain. He came back to the emergency room with complaints of chest pain, and was noted to have coffee-ground emesis. GI consultation is therefore obtained. Of note, patient is on famotidine at home according to the home meds list, and not on proton pump inhibitors. Of note, at discharge, patient had hemoglobin of 10.6 on January 13. Here his initial hemoglobin was 8.8 and has dropped down to 7.7. He is microcytic with an MCV of 67. Currently, patient is awake and alert and is able to respond appropriately. He denies chest pain shortness of breath abdominal pain nausea or vomiting. He is hungry. Home meds reviewed. Past History Past Medical History: anemia, GERD, other (Cerebral palsy, overactive bladder, quadriplegia) Past Surgical History: Other (Not available) Social history: full code, other (Lives in a long term) Family history: no significant family history Medications and Allergies Allergies Allergy/AdvReac Type Severity Reaction Status Date / Time No Known Allergies Allergy Unverified 09/04/13 12:05 Home Medications Medication Instructions Recorded Confirmed Last Taken Type RX: Nystatin [Nystop Powder] 100,000 gm PO DAILY 09/04/13 02/16/20 10/02/15 H istory RX: Glycopyrrolate [Robinul] 2 mg PO BID 09/06/19 02/16/20 Unknown History RX: Ketoconazole [Ketoconazole 120 ml TP PRN 09/06/19 02/16/20 Unknown History shampoo] RX: Famotidine [Pepcid] 20 mg PO BID #60 tablet 09/20/19 02/16/20 Unknown Rx RX: Lactulose 10 gm PO BID #1000 ml 09/20/19 02/16/20 Unknown Rx RX: Fesoterodine Fumarate ER (Nf) 8 mg PO DAILY 01/13/20 02/16/20 Unknown History [Toviaz ER (Nf)] RX: Ondansetron [Zofran ODT TAB] 4 mg PO TID 01/13/20 02/16/20 Unknown History RX: polyethylene glycoL 3350 17 gm PO QDAY 01/13/20 02/16/20 Unknown History [Miralax 3350] RX: traMADoL [Ultram 50 MG tab] 50 mg PO HS 01/13/20 02/16/20 Unknown History Vitamin D3 1,000 UNIT TAB 1 tab PO BID 01/13/20 02/16/20 Unknown History Active Meds: Active Medications Acetaminophen (Tylenol) 650 mg PO Q4H PRN PRN Reason: Pain MILD(1-3)/Fever >100.5/ESCALERA Hydromorphone HCl (Dilaudid) 0.5 mg IV Q3H PRN PRN Reason: Pain , Severe (7-10) Last Admin: 02/16/20 23:24 Dose: 0.5 mg Documented by: Sodium Chloride (Nacl 0.9% 1000 Ml) 1,000 mls @ 75 mls/hr IV DIRECT [facility] Last Admin: 02/17/20 14:15 Dose: 75 mls/hr Documented by: Pantoprazole Sodium 80 mg/ (Sodium Chloride) 100 mls @ 10 mls/hr IV DIRECT [facility] Last Admin: 02/17/20 06:03 Dose: 8 mg/hr, 10 mls/hr Documented by: Metoclopramide HCl (Reglan) 10 mg IV Q6H PRN PRN Reason: Nausea And Vomiting Nystatin (Nystop) 1 applic TP DAILY [facility] Last Admin: 02/17/20 14:13 Dose: 1 applic Documented by: Ondansetron HCl (Zofran) 4 mg IV Q3H PRN PRN Reason: Nausea And Vomiting Sodium Chloride (Sodium Chloride Flush Syringe 10 Ml) 10 ml IV BID [facility] Last Admin: 02/17/20 14:14 Dose: 10 ml Documented by: Sodium Chloride (Sodium Chloride Flush Syringe 10 Ml) 10 ml IV PRN PRN PRN Reason: LINE FLUSH Review of Systems ROS unobtainable: due to mental status Exam - Constitutional Vitals: Temp Pulse Resp BP Pulse Ox 97.8 F 96 H 17 111/66 99 02/17/20 11:58 02/17/20 11:58 02/17/20 11:58 02/17/20 11:58 02/17/20 11:58 General appearance: Present: no acute distress - EENT Eyes: Present: PERRL, EOM intact ENT: hearing intact - Respiratory Respiratory effort: normal Respiratory: bilateral: CTA - Cardiovascular Rhythm: regular Heart Sounds: Present: S1 & S2 - Extremities Extremities: No edema, abnormal (Somewhat contractured) - Abdominal General gastrointestinal: Present: soft, non-tender - Rectal Rectal Exam: normal rectal tone, stool brown (Light brown) Results - Labs CBC & Chem 7: 02/17/20 09:30 02/17/20 05:15 Labs: Abnormal lab results 02/16/20 02/17/20 02/17/20 Range/Units 17:33 01:51 05:15 Hgb 8.8 L 7.9 L 7.6 L (11.8-15.2) gm/dl Hct 29.2 L 26.3 L 25.4 L (35.5-45.6) % MCV 67 L (84-94) fl MCH 20 L (28-32) pg MCHC 30 L (32-34) % RDW 18.8 H (13.2-15.2) % Lymph % (Auto) 10.9 L (13.4-35.0) % Lymph # 0.9 L (1.2-5.4) K/mm3 Seg Neutrophils % 82.2 H (40.0-70.0) % Chloride (98-107) mmol/L Creatinine (0.8-1.3) mg/dL Calcium (8.4-10.2) mg/dL Total Protein (6.3-8.2) g/dL Albumin (3.9-5) g/dL Crossmatch 02/17/20 02/17/20 02/17/20 Range/Units 05:15 09:30 09:30 Hgb 7.7 L (11.8-15.2) gm/dl Hct 25.6 L (35.5-45.6) % MCV (84-94) fl MCH (28-32) pg MCHC (32-34) % RDW (13.2-15.2) % Lymph % (Auto) (13.4-35.0) % Lymph # (1.2-5.4) K/mm3 Seg Neutrophils % (40.0-70.0) % Chloride 111.2 H (98-107) mmol/L Creatinine 0.3 L (0.8-1.3) mg/dL Calcium 8.1 L (8.4-10.2) mg/dL Total Protein 6.0 L (6.3-8.2) g/dL Albumin 3.0 L (3.9-5) g/dL Crossmatch See Detail Assessment and Plan 1. Coffee-ground emesis -most consistent with known esophagitis. Unless there is evidence of more significant GI bleeding visually, no plans for endoscopic evaluation. However, patient needs to stay on chronic proton pump inhibitors on a daily basis, and not on H2 blockers alone. - PPI chronically - adv diet as tolerated. 2. Microcytic anemia -this is chronic but it has worsened since end of December. This may be due to chronic blood loss from esophagitis as he is not being aggressively treated with proton pump inhibitors. Lower GI source is also a consideration, as it is iron deficiency due to potentially a poor diet. -Check stool for occult blood -Check iron levels, and if low, give IV iron - monitor H/H - may consider colonoscopy, as outpatient, if not done
[2020-02-18 03:25] LABS: Iron 17 ug/dL (49-181); Total Iron Binding Capacity 274 mcg/dL (250-450)
--- NOTE | 2020-02-18 06:22 | Progress Note ---
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): G80.0 - Spastic quadriplegic cerebral palsy Plan to address problem: Supportive care (3) Chest pain Current Visit: Yes Status: Acute Qualifiers: Chest pain type: unspecified Qualified Code(s): R07.9 - Chest pain, unspecified Plan to address problem: Secondary to reflux esophagitis No Lexiscan Serial troponins normal (4) Overactive bladder Current Visit: Yes Status: Chronic Plan to address problem: Will resume Toviaz once he is cleared for eating (5) DVT prophylaxis Current Visit: No Status: Acute Plan to address problem: SCDs and GI prophylaxis (6) Discharge planning issues Current Visit: Yes Status: Acute Plan to address problem: If H&H is stable patient may be discharged tomorrow Subjective Date of service: 02/17/20 Principal diagnosis: Upper GI bleed Interval history: No further hematemesis, GI consult appreciated Possible esophagitis with coffee-ground emesis resolving Objective - Constitutional Vitals: Vital Signs - 12hr 02/17/20 02/17/20 02/18/20 20:19 23:30 04:11 Temperature 98.1 F 98.0 F 98.1 F Pulse Rate 104 H 79 82 Respiratory 20 18 18 Rate Blood Pressure 136/78 128/67 119/73 O2 Sat by Pulse 96 100 99 Oximetry General appearance: Present: no acute distress, well-nourished - EENT Eyes: PERRL, EOM intact ENT: hearing intact, clear oral mucosa Ears: bilateral: normal - Neck Neck: supple, normal ROM - Respiratory Respiratory effort: normal Respiratory: bilateral: CTA - Breasts Breasts: normal - Cardiovascular Heart rate: 99 Rhythm: regular Heart Sounds: Present: S1 & S2. Absent: gallop, rub Extremities: pulses intact, No edema, normal color, Full ROM - Gastrointestinal General gastrointestinal: Present: soft, non-tender, non-distended, normal bowel sounds - Genitourinary Male genitourinary: normal - Integumentary Integumentary: clear, warm, dry - Musculoskeletal Musculoskeletal: 1, strength equal bilaterally - Neurologic Neurologic: moves all extremities, other (Cerebral palsy with multiple contractures in all 4 extremities) - Psychiatric Psychiatric: memory intact, appropriate mood/affect, intact judgment & insight - Labs CBC & Chem 7: 02/17/20 09:30 02/17/20 05:15 Labs: Abnormal lab results 02/17/20 02/17/20 02/18/20 Range/Units 09:30 09:30 00:19 Hgb 7.7 L (11.8-15.2) gm/dl Hct 25.6 L (35.5-45.6) % Iron 17 L (49-181) ug/dL Crossmatch See Detail HEART Score - HEART Score Troponin: Troponin T < 0.010 ng/mL (0.00-0.029) 02/16/20 11:04 Troponin: < normal limit - Critical Actions Critical Actions: 0-3 pts:0.9-1.7%risk of adverse cardiac event.Candidate for discharge
[2020-02-18] MEDS: SODIUM CHLORIDE 0.9% 1000 ML 1,000 ML IV SCH (06:32)
[2020-02-18] MEDS: PANTOPRAZOLE 80 MG in SODIUM CHLORIDE 0.9% 100 ML IV SCH (06:32)
[2020-02-18] MEDS: NYSTATIN POWDER 15 GM TP SCH (09:44)
--- NOTE | 2020-02-18 11:15 | Progress Note ---
Assessment and Plan 1. Coffee-ground emesis -most consistent with known esophagitis. Stool negative for occult blood, and H/H stable. No plans for endoscopic evaluation. However, patient needs to stay on chronic proton pump inhibitors on a daily basis, and not on H2 blockers alone. - PPI chronically 2. Iron deficiency anemia -this is chronic but it has worsened since end of December. This may be due to chronic blood loss from esophagitis as he is not being aggressively treated with proton pump inhibitors. Lower GI source is also a consideration, as it is iron deficiency due to potentially a poor diet. -would consider giving IV iron - okay to D/C from GI standpoint, on oral iron and PPI - f/u as outpatient in 2-4 wks - may consider colonoscopy, as outpatient, if not done Will sign off. Please call as needed. Subjective Date of service: 02/18/20 Principal diagnosis: Upper GI bleed Interval history: Pt doing well. No complaints. Asking if he can go home. Objective - Constitutional Vitals: Vital Signs - 12hr 02/17/20 02/18/20 02/18/20 23:30 04:00 04:11 Temperature 98.0 F 98.1 F Pulse Rate 79 82 Pulse Rate [ Left Radial] Pulse Rate [ Right Radial] Respiratory 18 18 18 Rate Blood Pressure 128/67 119/73 O2 Sat by Pulse 100 96 99 Oximetry 02/18/20 02/18/20 08:43 10:06 Temperature 98.3 F Pulse Rate 64 Pulse Rate [ 82 Left Radial] Pulse Rate [ 82 Right Radial] Respiratory 18 21 Rate Blood Pressure 126/58 O2 Sat by Pulse 99 96 Oximetry General appearance: Present: no acute distress - EENT Eyes: PERRL, EOM intact ENT: hearing intact - Respiratory Respiratory effort: normal - Gastrointestinal General gastrointestinal: Present: soft, non-tender - Labs CBC & Chem 7: 02/17/20 09:30 02/17/20 05:15 Labs: Abnormal lab results 02/17/20 02/18/20 02/18/20 Range/Units 09:30 00:19 00:19 Iron 17 L (49-181) ug/dL Ferritin 14.3 L (30.0-300.0) ng/mL Crossmatch See Detail Medications & Allergies - Medications Allergies/Adverse Reactions: Allergies No Known Allergies Allergy (Unverified 09/04/13 12:05) Home Medications: Home Medications Medication Instructions Recorded Confirmed Last Taken Type Nystatin [Nystop Powder] 100,000 gm PO DAILY 09/04/13 02/16/20 10/02/15 History Glycopyrrolate [Robinul] 2 mg PO BID 09/06/19 02/16/20 Unknown History Ketoconazole [Ketoconazole shampoo] 120 ml TP PRN 09/06/19 02/16/20 Unknown History Famotidine [Pepcid] 20 mg PO BID #60 tablet 09/20/19 02/16/20 Unknown Rx Lactulose 10 gm PO BID #1000 ml 09/20/19 02/16/20 Unknown Rx Fesoterodine Fumarate ER (Nf) 8 mg PO DAILY 01/13/20 02/16/20 Unknown History [Toviaz ER (Nf)] Ondansetron [Zofran ODT TAB] 4 mg PO TID 01/13/20 02/16/20 Unknown History Vitamin D3 1,000 UNIT TAB 1 tab PO BID 01/13/20 02/16/20 Unknown History polyethylene glycoL 3350 [Miralax 17 gm PO QDAY 01/13/20 02/16/20 Unknown History 3350] traMADoL [Ultram 50 MG tab] 50 mg PO HS 01/13/20 02/16/20 Unknown History Active Medications: Generic Name Dose Route Start Last Admin Trade Name Freq PRN Reason Stop Dose Admin Acetaminophen 650 mg 02/16/20 17:21 Tylenol PO Q4H PRN Pain MILD(1-3)/Fever >100.5/ESCALERA Hydromorphone HCl 0.5 mg 02/16/20 17:21 02/16/20 23:24 Dilaudid IV 0.5 mg Q3H PRN Administration Pain , Severe (7-10) Sodium Chloride 1,000 mls @ 75 mls/hr 02/16/20 17:30 02/18/20 06:32 Nacl 0.9% 1000 Ml IV 75 mls/hr DIRECT NATALIE Administration Pantoprazole Sodium 80 mg/ 100 mls @ 10 mls/hr 02/16/20 18:00 02/18/20 06:32 Sodium Chloride IV 8 mg/hr DIRECT NATALIE 10 mls/hr Administration 8 MG/HR Metoclopramide HCl 10 mg 02/16/20 17:21 Reglan IV Q6H PRN Nausea And Vomiting Nystatin 1 applic 02/16/20 18:00 02/18/20 09:44 Nystop TP 1 applic DAILY NATALIE Administration Ondansetron HCl 4 mg 02/16/20 17:21 Zofran IV Q3H PRN Nausea And Vomiting Sodium Chloride 10 ml 02/16/20 22:00 02/18/20 09:44 Sodium Chloride Flush Syringe 10 Ml IV 10 ml BID NATALIE Administration Sodium Chloride 10 ml 02/16/20 17:21 Sodium Chloride Flush Syringe 10 Ml IV PRN PRN LINE FLUSH HEART Score - HEART Score Troponin: Troponin T < 0.010 ng/mL (0.00-0.029) 02/16/20 11:04 Troponin: < normal limit - Critical Actions Critical Actions: 0-3 pts:0.9-1.7%risk of adverse cardiac event.Candidate for discharge
[2020-02-18 13:32] VITALS: BP 149/86
--- NOTE | 2020-02-18 13:36 | Discharge Summary ---
Providers - Providers Date of Admission: 02/16/20 17:21 Attending physician: AILYN DUARTE 02/16/20 15:05 Consult to Physician [CONS] Stat Comment: Consulting Provider: GENNY CLEMENTS Physician Instructions: Reason For Exam: upper gi bleeding Hospitalization Condition: Stable Exam - Constitutional Vitals: Temp Pulse Resp BP Pulse Ox 98.3 F 92 H 21 149/86 98 02/18/20 08:43 02/18/20 13:29 02/18/20 10:06 02/18/20 13:29 02/18/20 13:29 Plan Follow up with: REBEKAH CAMARENA [Other] - 3-5 Days
[2020-02-19] MEDS ORDERED: PANTOPRAZOLE 40 MG TAB PO SCH (10:00)
--- NOTE | 2020-02-19 10:38 | Cat Scan Report ---
CT abdomen pelvis w con INDICATION: Pain.. COMPARISON: CT abdomen September TECHNIQUE: Abdominal and pelvic CT exam performed. All CT scans at this location are performed using CT dose reduction for ALARA by means of automated exposure control. FINDINGS: CT ABDOMEN and PELVIS: Please note, the patient is rotated and has severe scoliosis and not able to be positioned correctly in the scanner. Compromises image quality and decreases the sensitivity of this evaluation. Lung Bases: No significant abnormality. Liver: No significant abnormality. Biliary: No significant abnormality. Spleen: No significant abnormality. Pancreas: No significant abnormality. Adrenals: No significant abnormality. Kidneys: Right middle pole simple renal cyst. There are other tiny subcentimeter hypoattenuating kelvin l lesions which are too small to fully characterize but most likely represent cysts. No significant a bnormality. Lymphatics: No lymphadenopathy. Vasculature: No significant abnormality. Bowel/Peritoneum: No significant abnormality. Moderate-sized hiatal hernia. Pelvis: There is a hyperattenuating (thought to be enhancing) lobulated lesion seen projecting into t he base of the bladder measuring approximately 2.5 cm on image 55 of series 701, which was present on prior examination(im 64 se 601). Moderate prostate enlargement. Osseous Structures: No aggressive osseous lesion. Additional Findings: None IMPRESSION: 1. There is a soft tissue lesion along the base of the bladder measuring 1.7cm which is unchanged com pared to september 20, 2019. Direct visualization is recommended with cystoscopy. 2. Moderate hiatal hernia with fluid filled dilated distal esophagus. Signer Name: Ivan Watts MD Signed: 02/16/2020 2:03 PM Workstation Name: [id number]
--- NOTE | 2020-02-19 10:38 | Cat Scan Report ---
CT angio chest INDICATION / CLINICAL INFORMATION: Pain. TECHNIQUE: Axial CT images were obtained through the chest after injection of IV contrast. 3 plane MIP and/or 3D reconstructions were produced. All CT scans at this location are performed using CT dose reduction f or ALARA by means of automated exposure control. COMPARISON: None available. FINDINGS: Please note that patient is significantly rotated and not able to be positioned appropriately in the scanner which decreases the sensitivity of this evaluation. Aorta: No dissection. No aneurysm. HEART: No significant abnormality. MEDIASTINUM / IVANNA: Moderate-sized sliding-type hiatal hernia. No significant abnormality. LUNGS: Lungs are clear No pleural effusion. No pneumothorax. ADDITIONAL FINDINGS: None. UPPER ABDOMEN: Please see CT abdomen dated same day. SKELETAL STRUCTURES: No significant osseous abnormality. IMPRESSION: 1. Aorta appears within normal limits. No dissection. No aneurysm. 2. No acute findings. Signer Name: Ivan Watts MD Signed: 02/16/2020 1:56 PM Workstation Name: [id number]
== END 2020-02-18 19:35 | disposition hospice, home (50) ==
LOC: ED 09:37 → 4A 17:21
PROVIDERS: ADMIT Internal Medicine; ATTEND Internal Medicine
DX: Z03.818 Encounter for observation for suspected exposure to other biological agents ruled out (principal); K92.0 Hematemesis; K92.2 Gastrointestinal hemorrhage, unspecified; G80.0 Spastic quadriplegic cerebral palsy; D50.9 Iron deficiency anemia, unspecified; R07.89 Other chest pain; N32.81 Overactive bladder; D53.9 Nutritional anemia, unspecified; Z79.899 Other long term (current) drug therapy
CPT/HCPCS: 36415; 71045; 71275; 74177; 80048; 80053; 80076; 81001; 82270; 82728; 83036; 83550; 83690; 84484; 85014; 85018; 85025; 85379; 85610; 85730; 86850; 86900; 86901; 86920; 93005; 96361; 96365; 96366; 96375; 96376; 99285; C9113; G0378; J1170; J2405; J7030; Q9967; U0003

== ENCOUNTER 2020-03-08 06:26 | Inpatient (IN) | payer MEDICARE ==
[2020-03-08] MEDS ORDERED: SODIUM CHLORIDE 0.9% 1000 ML 1,000 ML IV ONE (06:48)
[2020-03-08] MEDS ORDERED: ONDANSETRON 4 MG/2 ML INJ IV ONE (06:48)
[2020-03-08] MEDS ORDERED: PANTOPRAZOLE 80 MG in SODIUM CHLORIDE 0.9% 100 ML IV ONE (07:30)
[2020-03-08 07:36] LABS: Basophils # (Auto) 0.1 K/mm3 (0.0-0.1); Basophils % (Auto) 0.8 % (0.0-1.8); Eosinophils # (Auto) 0.1 K/mm3 (0.0-0.4); Eosinophils % (Auto) 0.7 % (0.0-4.3); Lymphocytes # (Auto) 0.9 K/mm3 (1.2-5.4); Lymphocytes % (Auto) 10.4 % (13.4-35.0); Mean Corpuscular HGB Conc 29 % (32-34); Monocytes # (Auto) 0.7 K/mm3 (0.0-0.8); Monocytes % (Auto) 8.1 % (0.0-7.3); Platelet Count 287 K/mm3 (140-440); Red Blood Count 4.29 M/mm3 (3.65-5.03)
[2020-03-08 07:38] LABS: Hematocrit 27.6 % (35.5-45.6); Mean Corpuscular Volume 64 fl (84-94)
[2020-03-08 07:45] LABS: INR 1.01 (0.87-1.13)
--- NOTE | 2020-03-08 07:46 | Emergency Department Report ---
ED GI Bleed HPI - General Chief complaint: GI Bleed Stated complaint: VOMTING Time Seen by Provider: 03/08/20 06:48 Source: patient, EMS Mode of arrival: Stretcher Limitations: Physical Limitation, Other - History of Present Illness Initial comments: Patient is 54 years old male who lives in a intermediate. Patient history of cerebral palsy, seizure and Allan's esophagus. Patient brought to the emergency room via EMS from his intermediate for evaluation of coffee-ground emesis x1 started this morning. Patient is alert and oriented and able to commu nicate well. Patient informed that he had just one episode. Patient denied any chest pain or abdominal pain. He also denied any rectal bleeding or change in his stool color. Patient was recently admitted to the hospital for similar complaint and evaluated by GI Dr. Patel. Patient had an upper endoscopy by Dr. Rommel Olivera in December and found to have esophagitis. Dr. Patel indicated that coffee-ground emesis is most likely from his esophagitis. He was started on proton pump inhibitor. MD complaint: coffee ground emesis -: This morning Radiation: none Severity scale (0 -10): 0 Quality: painless Context: history of GI bleed Associated Symptoms: denies other symptoms - Related Data Home Medications Medication Instructions Recorded Confirmed Last Taken Nystatin [Nystop Powder] 100,000 gm PO DAILY 09/04/13 02/16/20 10/02/15 Glycopyrrolate [Robinul] 2 mg PO BID 09/06/19 02/16/20 Unknown Ketoconazole [Ketoconazole shampoo] 120 ml TP PRN 09/06/19 02/16/20 Unknown Fesoterodine Fumarate ER (Nf) 8 mg PO DAILY 01/13/20 02/16/20 Unknown [Toviaz ER (Nf)] Ondansetron [Zofran ODT TAB] 4 mg PO TID 01/13/20 02/16/20 Unknown Vitamin D3 1,000 UNIT TAB 1 tab PO BID 01/13/20 02/16/20 Unknown polyethylene glycoL 3350 [Miralax 17 gm PO QDAY 01/13/20 02/16/20 Unknown 3350] traMADoL [Ultram 50 MG tab] 50 mg PO HS 01/13/20 02/16/20 Unknown Previous Rx's Medication Instructions Recorded Last Taken Type Famotidine [Pepcid] 20 mg PO BID #60 tablet 09/20/19 Unknown Rx Lactulose 10 gm PO BID #1000 ml 09/20/19 Unknown Rx Allergies Allergy/AdvReac Type Severity Reaction Status Date / Time No Known Allergies Allergy Unverified 09/04/13 12:05 ED Review of Systems ROS: Stated complaint: VOMTING Other details as noted in HPI Comment: All other systems reviewed and negative Constitutional: denies: chills, fever Respiratory: denies: cough, shortness of breath, SOB with exertion, SOB at rest Cardiovascular: denies: chest pain, palpitations, dyspnea on exertion, orthopnea, edema, syncope, paroxysmal nocturnal dyspnea Gastrointestinal: vomiting. 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, moderate MR, hydrocephalus, cerebral palsy, quadriplegic,, constipation, correction drug therapy - Surgical History Past Surgical History?: Yes Additional Surgical History: unknown - Social History Smoking Status: Former Smoker Substance Use Type: None - Medications Home Medications: Home Medications Medication Instructions Recorded Confirmed Last Taken Type Nystatin [Nystop Powder] 100,000 gm PO DAILY 09/04/13 02/16/20 10/02/15 History Glycopyrrolate [Robinul] 2 mg PO BID 09/06/19 02/16/20 Unknown History Ketoconazole [Ketoconazole shampoo] 120 ml TP PRN 09/06/19 02/16/20 Unknown History Famotidine [Pepcid] 20 mg PO BID #60 tablet 09/20/19 02/16/20 Unknown Rx Lactulose 10 gm PO BID #1000 ml 09/20/19 02/16/20 Unknown Rx Fesoterodine Fumarate ER (Nf) 8 mg PO DAILY 01/13/20 02/16/20 Unknown History [Toviaz ER (Nf)] Ondansetron [Zofran ODT TAB] 4 mg PO TID 01/13/20 02/16/20 Unknown History Vitamin D3 1,000 UNIT TAB 1 tab PO BID 01/13/20 02/16/20 Unknown History polyethylene glycoL 3350 [Miralax 17 gm PO QDAY 01/13/20 02/16/20 Unknown History 3350] traMADoL [Ultram 50 MG tab] 50 mg PO HS 01/13/20 02/16/20 Unknown History ED Physical Exam - General Limitations: Physical Limitation, Other General appearance: alert, in no apparent distress - Head Head exam: Present: atraumatic, normocephalic, normal inspection - Eye Eye exam: Present: normal appearance - ENT ENT exam: Present: normal exam, normal orophraynx, mucous membranes moist - Neck Neck exam: Present: normal inspection, full ROM. Absent: tenderness, meni ngismus - Respiratory Respiratory exam: Present: normal lung sounds bilaterally - Cardiovascular Cardiovascular Exam: Present: regular rate, normal rhythm, normal heart sounds - GI/Abdominal GI/Abdominal exam: Present: soft, normal bowel sounds. Absent: distended, tenderness, guarding, rebound, rigid - Rectal Rectal exam: Present: deferred - Neurological Exam Neurological exam: Present: alert ED Course Vital Signs 03/08/20 03/08/20 03/08/20 06:53 07:01 07:15 Pulse Rate 116 H 110 H Respiratory 15 19 Rate Blood Pressure 108/73 108/73 O2 Sat by Pulse 99 98 97 Oximetry 03/08/20 03/08/20 03/08/20 07:30 07:45 08:01 Pulse Rate 113 H 113 H 110 H Respiratory 16 20 18 Rate Blood Pressure 112/76 112/76 112/76 O2 Sat by Pulse 97 96 Oximetry ED Medical Decision Making - Lab Data Result diagrams: 03/08/20 06:56 03/08/20 06:56 - Medical Decision Making Patient is 54 years old male who lives in a intermediate. Patient history of cerebral palsy, seizure and Allan's esophagus. Patient brought to the emergency room via EMS from his intermediate for evaluation of coffee-ground emesis x1 started this morning. Patient is alert and oriented and able to communicate well. Patient informed that he had just one episode. Patient denied any chest pain or abdominal pain. He also denied any rectal bleeding or change in his stool color. Patient was recently admitted to the hospital for similar complaint and evaluated by GI Dr. Patel. Patient had an upper endoscopy by Dr. Rommel Olivera in December and found to have esophagitis. Dr. Patel indicated that coffee-ground emesis is most likely from his esophagitis. He was started on proton pump inhibitor. Patient started on normal saline. Patient started on Protonix drip. Labs reviewed and showed a hemoglobin of 8 and I believe this is his baseline. No coffee-ground emesis observed in the ER so far. Vital signs stable. I discussed the patient with Dr. Beck, he advised to admit the patient to Dr. Ysot. Critical Care Time: Yes Critical care time in (mins) excluding proc time.: 30 Critical care attestation.: If time is entered above; I have spent that time in minutes in the direct care of this critically ill patient, excluding procedure time. ED Disposition Clinical Impression: Upper GI bleed Disposition: OP ADMIT IP TO THIS HOSP Is pt being admited?: Yes Condition: Stable Forms: Accompanied Note
[2020-03-08 08:03] LABS: BUN/Creatinine Ratio 34; Blood Urea Nitrogen 17 mg/dL (9-20); Calcium 9.3 mg/dL (8.4-10.2); Hemolysis Index 4
[2020-03-08 08:10] LABS: Alanine Aminotransferase 10 units/L (7-56); Albumin 3.8 g/dL (3.9-5)
[2020-03-08 08:11] LABS: Bilirubin,Direct < 0.2 mg/dL (0-0.2)
[2020-03-08] MEDS ORDERED: ONDANSETRON 4 MG/2 ML INJ ONE (09:09)
--- NOTE | 2020-03-08 10:32 | History and Physical Report ---
History of Present Illness Date of examination: 03/08/20 Date of admission: 03/08/20 09:52 Chief complaint: acute GI bleed History of present illness: Patient is 54 years old black male with history of cerebral palsy, and Allan's esophagus brought to the emergency room via EMS from his fdc for evaluation of coffee-ground emesis x1 started this morning. Patient able to answer simple questions. Patient informed that he had just one episode. Patient denied any chest pain or abdominal pain. Per nursing, patient had brown stool without melena or blood in the stools. Patient was recently admitted to the hospital for similar complaint and had an upper endoscopy by Dr. Rommel Olivera in December and found to have esophagitis. He was started on proton pump inhibitor that time and was discharged. At discharge from December admission, his Hgb was around 10. In the ER his hb is 8.0. Patient started on normal saline. Patient started on Protonix drip.No coffee-ground emesis observed in the ER so far. Vital signs stable. GI consulted in the ER and patient is being admitted for further evaluation and mx. Past History Past Medical History: other (Cerebral palsy, overactive bladder, quadriplegia) Past Surgical History: Other (Not available) Social history: full code, other (Lives in a fdc) Family history: no significant family history ROS: Limited due to history of cerebral palsy Denies chest pian, SOB, abdominal pain, no further n/v since morning Medications and Allergies Allergies Allergy/AdvReac Type Severity Reaction Status Date / Time No Known Allergies Allergy Unverified 09/04/13 12:05 Home Medications Medication Instructions Recorded Confirmed Last Taken Type Nystatin [Nystop Powder] 100,000 gm PO DAILY 09/04/13 03/09/20 02/29/20 History Glycopyrrolate [Robinul] 2 mg PO BID 09/06/19 03/09/20 02/29/20 History Ketoconazole [Ketoconazole shampoo] 120 ml TP PRN 09/06/19 03/09/20 02/29/20 History Famotidine [Pepcid] 20 mg PO BID #60 tablet 09/20/19 03/09/20 02/29/20 Rx Lactulose 10 gm PO BID #1000 ml 09/20/19 03/09/20 02/29/20 Rx Fesoterodine Fumarate ER (Nf) 8 mg PO DAILY 01/13/20 03/09/20 02/29/20 History [Toviaz ER (Nf)] Ondansetron [Zofran ODT TAB] 4 mg PO TID 01/13/20 03/09/20 02/29/20 History Vitamin D3 1,000 UNIT TAB 1 tab PO BID 01/13/20 03/09/20 02/29/20 History polyethylene glycoL 3350 [Miralax 17 gm PO QDAY 01/13/20 03/09/20 02/29/20 History 3350] traMADoL [Ultram 50 MG tab] 50 mg PO HS 01/13/20 03/09/20 03/03/20 History Active Meds: Active Medications Pantoprazole Sodium 80 mg/ (Sodium Chloride) 100 mls @ 10 mls/hr IV ONCE ONE Stop: 03/08/20 17:29 Last Admin: 03/08/20 09:11 Dose: 8 mg/hr, 10 mls/hr Documented by: Exam - Physical Exam Narrative exam: General appearance: Present: no acute distress, well-nourished - EENT Eyes: Present: PERRL ENT: hearing intact, clear oral mucosa - Neck Neck: Present: supple, normal ROM - Respiratory Respiratory effort: normal Respiratory: bilateral: CTA - Cardiovascular Heart rate: 78 Rhythm: regular Heart Sounds: Present: S1 & S2. Absent: rub, click - Extremities Extremities: pulses symmetrical, No edema Peripheral Pulses: within normal limits - Abdominal General gastrointestinal: Present: soft, non-tender, non-distended, normal bowel sounds Male genitourinary: Present: normal - Rectal Rectal Exam: stool brown - Integumentary Integumentary: Present: clear, warm, dry - Musculoskeletal Musculoskeletal: generalized weakness, other, B/L LE and LUE muscle wasting - Psychiatric Psychiatric: appropriate mood/affect - Neurologic Neurologic: CNII-XII intact, left sided spastic paralysis - Allied Health Allied health notes reviewed: nursing, case management - Constitutional Vitals: Temp Pulse Resp BP Pulse Ox 100 H 20 112/76 100 03/08/20 10:01 03/08/20 10:01 03/08/20 09:01 03/08/20 10:01 Results - Labs CBC & Chem 7: 03/09/20 06:40 03/09/20 06:40 Labs: Abnormal lab results 03/08/20 03/08/20 03/08/20 Range/Units 06:56 06:56 06:56 Hgb 8.0 L (11.8-15.2) gm/dl Hct 27.6 L (35.5-45.6) % MCV 64 L (84-94) fl MCH 19 L (28-32) pg MCHC 29 L (32-34) % RDW 20.0 H (13.2-15.2) % Lymph % (Auto) 10.4 L (13.4-35.0) % [place] % (Auto) 8.1 H (0.0-7.3) % Lymph # 0.9 L (1.2-5.4) K/mm3 Seg Neutrophils % 80.0 H (40.0-70.0) % Creatinine 0.5 L (0.8-1.3) mg/dL Glucose 103 H (75-100) mg/dL Albumin 3.8 L (3.9-5) g/dL Assessment and Plan -- Upper GI bleed Serial hemoglobin and hematocrit IV Protonix drip GI consult Transfuse if necessary - likely due to known esophagitis. EGD in 12/[address] Olivera showed esophagitis and tortuous esophagus. Path negative for dysplasia. --Blood loss anemia cont to monitor h/h transfuse if Hb <7.0 -- Cerebral palsy Supportive care -- h/o reflux esophagitis cont PPI -- Overactive bladder Will resume Toviaz once he is cleared for eating -- DVT prophylaxis SCDs and GI prophylaxis
[2020-03-08 14:23] LABS: Hematocrit 24.8 % (35.5-45.6); Hemoglobin 7.1 gm/dl (11.8-15.2)
--- NOTE | 2020-03-08 14:43 | Gastroenterology Consultation ---
History of Present Illness - Reason for Consult Consult date: 03/08/20 coffee ground emesis Requesting physician: ARA PATEL - History of Present Illness This is a 54 yo male with cerebral palsy who lives in a half-way admitted overnight for episode of coffee ground emesis. Patient able to answer simple questions. States yes to abdominal pain and vomiting. Per nursing, patient had brown stool without melena or blood in the stools. Of note, he was recently discharge earlier this month after evaluation for similar complaints of coffee ground emesis. He has a longstanding history of esophageal problems with chronic dysphagia and esophagitis. He underwent an upper endoscopy on January 13 of [address] Olivera which showed distal esophagitis and a tortuous esophagus. At discharge from December admission, his Hgb was around 10. Last admission earlier this month, Hgb ranged from 7.7 to 8.8 with microcytic anemia. He was started on protonix for known esophagitis. Home meds reviewed. Past History Past Medical History: GERD, other (cerebral palsy, esophagitis) Social history: other (lives in a half-way) Medications and Allergies Allergies Allergy/AdvReac Type Severity Reaction Status Date / Time No Known Allergies Allergy Unverified 09/04/13 12:05 Home Medications Medication Instructions Recorded Confirmed Last Taken Type Nystatin [Nystop Powder] 100,000 gm PO DAILY 09/04/13 02/16/20 10/02/15 History Glycopyrrolate [Robinul] 2 mg PO BID 09/06/19 02/16/20 Unknown History Ketoconazole [Ketoconazole shampoo] 120 ml TP PRN 09/06/19 02/16/20 Unknown History Famotidine [Pepcid] 20 mg PO BID #60 tablet 09/20/19 02/16/20 Unknown Rx Lactulose 10 gm PO BID #1000 ml 09/20/19 02/16/20 Unknown Rx Fesoterodine Fumarate ER (Nf) 8 mg PO DAILY 01/13/20 02/16/20 Unknown History [Toviaz ER (Nf)] Ondansetron [Zofran ODT TAB] 4 mg PO TID 01/13/20 02/16/20 Unknown History Vitamin D3 1,000 UNIT TAB 1 tab PO BID 01/13/20 02/16/20 Unknown History polyethylene glycoL 3350 [Miralax 17 gm PO QDAY 01/13/20 02/16/20 Unknown History 3350] traMADoL [Ultram 50 MG tab] 50 mg PO HS 01/13/20 02/16/20 Unknown History Active Meds: Active Medications Pantoprazole Sodium 80 mg/ (Sodium Chloride) 100 mls @ 10 mls/hr IV ONCE ONE Stop: 03/08/20 17:29 Last Admin: 03/08/20 09:11 Dose: 8 mg/hr, 10 mls/hr Documented by: Dextrose/Sodium Chloride (D5ns) 1,000 mls @ 75 mls/hr IV DIRECT NATALIE Review of Systems - Review of Systems ROS unobtainable: due to mental status Exam - Constitutional Vital Signs: Temp Pulse Resp BP Pulse Ox 98.4 F 103 H 18 131/82 98 03/08/20 10:52 03/08/20 10:52 03/08/20 10:52 03/08/20 10:52 03/08/20 10:52 General appearance: no acute distress - EENT ENT: hearing intact - Respiratory Respiratory effort: normal - Cardiovascular Rhythm: regular Heart Sounds: Present: S1 & S2 - Gastrointestinal General gastrointestinal: Present: soft, non-tender, non-distended - Integumentary Integumentary: Present: warm - Labs CBC & Chem 7: 03/08/20 14:11 03/08/20 06:56 Lab Results: Laboratory Results - last 24 hr 03/08/20 03/08/20 03/08/20 06:56 06:56 06:56 WBC 8.8 RBC 4.29 Hgb 8.0 L Hct 27.6 L MCV 64 L MCH 19 L MCHC 29 L RDW 20.0 H Plt Count 287 Lymph % (Auto) 10.4 L [place] % (Auto) 8.1 H Eos % (Auto) 0.7 Baso % (Auto) 0.8 Lymph # 0.9 L [place] # 0.7 Eos # 0.1 Baso # 0.1 Seg Neutrophils % 80.0 H Seg Neutrophils # 7.1 PT INR APTT Sodium 143 Potassium 3.7 Chloride 106.9 Carbon Dioxide 22 Anion Gap 18 BUN 17 Creatinine 0.5 L Estimated GFR > 60 BUN/Creatinine Ratio 34 Glucose 103 H Lactic Acid 1.30 Calcium 9.3 Total Bilirubin Direct Bilirubin AST ALT Alkaline Phosphatase Total Protein Albumin Albumin/Globulin Ratio Blood Type Antibody Screen 03/08/20 03/08/20 03/08/20 06:56 06:56 06:56 WBC RBC Hgb Hct MCV MCH MCHC RDW Plt Count Lymph % (Auto) [place] % (Auto) Eos % (Auto) Baso % (Auto) Lymph # [place] # Eos # Baso # Seg Neutrophils % Seg Neutrophils # PT 13.5 INR 1.01 APTT 33.0 Sodium Potassium Chloride Carbon Dioxide Anion Gap BUN Creatinine Estimated GFR BUN/Creatinine Ratio Glucose Lactic Acid Calcium Total Bilirubin 0.50 Direct Bilirubin < 0.2 AST 16 ALT 10 Alkaline Phosphatase 109 Total Protein 8.0 Albumin 3.8 L Albumin/Globulin Ratio 0.9 Blood Type O POSITIVE Antibody Screen Negative 03/08/20 14:11 WBC RBC Hgb 7.1 L Hct 24.8 L MCV MCH MCHC RDW Plt Count Lymph % (Auto) [place] % (Auto) Eos % (Auto) Baso % (Auto) Lymph # [place] # Eos # Baso # Seg Neutrophils % Seg Neutrophils # PT INR APTT Sodium Potassium Chloride Carbon Dioxide Anion Gap BUN Creatinine Estimated GFR BUN/Creatinine Ratio Glucose Lactic Acid Calcium Total Bilirubin Direct Bilirubin AST ALT Alkaline Phosphatase Total Protein Albumin Albumin/Globulin Ratio Blood Type Antibody Screen Assessment and Plan This is a 54 yo male with cerebral palsy who lives in a half-way admitted overnight for episode of coffee ground emesis. - Patient Problems (1) Upper GI bleed Current Visit: Yes Status: Acute Plan to address problem: # Coffee ground emesis: per report from nursing facility. - no active signs of bleeding. No recurrent vomiting per nursing. No melena or blood in the stools. - Hgb close to previous discharge baseline from recent admission earlier this month. - likely due to known esophagitis. EGD in 12/[address] Olivera showed e sophagitis and tortuous esophagus. Path negative for dysplasia. Unclear if patient is receiving protonix as outpatient. Rec - monitor H/H. - clear liquids. - no plans for endoscopy given recent EGD 2 months ago unless active bleeding signs. - cont with protonix PO. (2) GERD (gastroesophageal reflux disease) Current Visit: No Status: Acute Qualifiers: Esophagitis presence: with esophagitis Qualified Code(s): K21.0 - Gastro- esophageal reflux disease with esophagitis
[2020-03-08] MEDS: D5W/0.9% NACL 1,000 ML IV SCH (15:45)
[2020-03-08] MEDS: PANTOPRAZOLE 40 MG TAB PO SCH ×2 (15:51→22:34)
[2020-03-08 23:09] LABS: Hematocrit 22.7 % (35.5-45.6); Hemoglobin 6.7 gm/dl (11.8-15.2)
[2020-03-09 07:21] LABS: Basophils % (Auto) 0.8 % (0.0-1.8); Eosinophils # (Auto) 0.2 K/mm3 (0.0-0.4); Eosinophils % (Auto) 2.4 % (0.0-4.3); Hematocrit 22.1 % (35.5-45.6); Hemoglobin 6.4 gm/dl (11.8-15.2); Lymphocytes # (Auto) 1.4 K/mm3 (1.2-5.4); Lymphocytes % (Auto) 21.9 % (13.4-35.0); Mean Corpuscular HGB Conc 29 % (32-34); Monocytes % (Auto) 15.3 % (0.0-7.3); Platelet Count 245 K/mm3 (140-440); Red Blood Count 3.44 M/mm3 (3.65-5.03); Red Cell Distribution Width 19.6 % (13.2-15.2)
[2020-03-09 07:24] LABS: Mean Corpuscular Volume 64 fl (84-94)
[2020-03-09 07:37] LABS: Blood Urea Nitrogen 13 mg/dL (9-20); Calcium 8.9 mg/dL (8.4-10.2); Hemolysis Index 2
[2020-03-09] MEDS ORDERED: SODIUM CHLORIDE 0.9% 500 ML 500 ML IV NR (07:37)
[2020-03-09 07:43] LABS: BUN/Creatinine Ratio 26
[2020-03-09] MEDS: PANTOPRAZOLE 40 MG TAB PO SCH ×2 (13:36→21:53)
--- NOTE | 2020-03-09 15:13 | Progress Note ---
Assessment and Plan -- Upper GI bleed monitor with Serial hemoglobin and hematocrit s/p IV Protonix drip now cont BID GI consulted but no plan for EGD now Transfuse as necessary - likely due to known esophagitis. EGD in 12/[address] Olivera showed esophagiti s and tortuous esophagus. Path negative for dysplasia. --Blood loss anemia cont to monitor h/h hb 6.4 today transfuse -- Cerebral palsy Supportive care -- h/o reflux esophagitis cont PPI -- Overactive bladder resume Toviaz -- DVT prophylaxis SCDs and GI prophylaxis 03/09: Hb 6.4 - transfused 2 units of PRBC, monitor hh Subjective Date of service: 03/09/20 Interval history: Patient seen and examined no active bleeding per pt and RN report hb dropped to 6.4 - ordered for blood transfusion discussed with GI - no plan for EGD Objective - Exam Narrative Exam: General appearance: Present: no acute distress, well-nourished - EENT Eyes: Present: PERRL ENT: hearing intact, clear oral mucosa - Neck Neck: Present: supple, normal ROM - Respiratory Respiratory effort: normal Respiratory: bilateral: CTA - Cardiovascular Heart rate: 78 Rhythm: regular Heart Sounds: Present: S1 & S2. Absent: rub, click - Extremities Extremities: pulses symmetrical, No edema Peripheral Pulses: within normal limits - Abdominal General gastrointestinal: Present: soft, non-tender, non-distended, normal bowel sounds Male genitourinary: Present: normal - Rectal Rectal Exam: stool brown - Integumentary Integumentary: Present: clear, warm, dry - Musculoskeletal Musculoskeletal: generalized weakness, other, B/L LE and LUE muscle wasting - Psychiatric Psychiatric: appropriate mood/affect - Neurologic Neurologic: CNII-XII intact, left sided spastic paralysis - Allied Health Allied health notes reviewed: nursing, case management - Constitutional Vitals: Vital Signs - 12hr 03/09/20 03/09/20 03/09/20 05:36 08:21 09:00 Temperature 97.9 F 98.2 F Pulse Rate 119 H 109 H 104 H Respiratory 18 18 Rate Blood Pressure 119/67 107/69 O2 Sat by Pulse 99 98 Oximetry 03/09/20 13:39 Temperature 98.5 F Pulse Rate 107 H Respiratory 18 Rate Blood Pressure 132/70 O2 Sat by Pulse 99 Oximetry - Labs CBC & Chem 7: 03/09/20 06:40 03/09/20 06:40 Labs: Abnormal lab results 03/08/20 03/08/20 03/09/20 Range/Units 06:56 22:23 06:40 RBC 3.44 L (3.65-5.03) M/mm3 Hgb 6.7 L 6.4 L (11.8-15.2) gm/dl Hct 22.7 L 22.1 L (35.5-45.6) % MCV 64 L (84-94) fl MCH 19 L (28-32) pg MCHC 29 L (32-34) % RDW 19.6 H (13.2-15.2) % [place] % (Auto) 15.3 H (0.0-7.3) % [place] # 1.0 H (0.0-0.8) K/mm3 Potassium (3.6-5.0) mmol/L Creatinine (0.8-1.3) mg/dL Glucose (75-100) mg/dL Crossmatch See Detail 03/09/20 Range/Units 06:40 RBC (3.65-5.03) M/mm3 Hgb (11.8-15.2) gm/dl Hct (35.5-45.6) % MCV (84-94) fl MCH (28-32) pg MCHC (32-34) % RDW (13.2-15.2) % [place] % (Auto) (0.0-7.3) % [place] # (0.0-0.8) K/mm3 Potassium 3.5 L (3.6-5.0) mmol/L Creatinine 0.5 L (0.8-1.3) mg/dL Glucose 110 H (75-100) mg/dL Crossmatch
--- NOTE | 2020-03-09 16:45 | Gastroenterology Progress Note ---
Assessment and Plan This is a 54 yo male with cerebral palsy who lives in a fdc admitted overnight for episode of coffee ground emesis. - Patient Problems (1) Upper GI bleed Current Visit: Yes Status: Acute Plan to address problem: # Coffee ground emesis: per report from nursing facility. - no active signs of bleeding. No recurrent vomiting per nursing. No melena or blood in the stools. - Hgb close to previous discharge baseline from recent admission earlier this month. - likely due to known esophagitis. EGD in 12/[address] Olivera showed esophagitis and tortuous esophagus. Path negative for dysplasia. Unclear if patient is receiving protonix as outpatient. - Hgb trended down. Receiving blood transfusion today. No overt signs of b leeding. Rec - monitor H/H. - clear liquids. - no plans for endoscopy given recent EGD 2 months ago unless active bleeding signs. - cont with protonix. switch to IV dosing. - will follow. (2) GERD (gastroesophageal reflux disease) Current Visit: No Status: Acute Qualifiers: Esophagitis presence: with esophagitis Qualified Code(s): K21.0 - Gastro- esophageal reflux disease with esophagitis Subjective Date of service: 03/09/20 Interval history: No nausea/vomiting. No BM. No abdominal pain. Objective - Constitutional Vitals: Temp Pulse Resp BP Pulse Ox 98.5 F 107 H 18 132/70 99 03/09/20 13:39 03/09/20 13:39 03/09/20 13:39 03/09/20 13:39 03/09/20 13:39 General appearance: no acute distress - EENT Eyes: EOM intact ENT: hearing intact - Neck Neck: supple - Cardiovascular Rhythm: regular Heart Sounds: Present: S1 & S2 - Gastrointestinal General gastrointestinal: Present: soft, non-tender, non-distended - Labs CBC & Chem 7: 03/09/20 06:40 03/09/20 06:40 Labs: Laboratory Results - last 24 hr 03/08/20 03/08/20 03/09/20 06:56 22:23 06:40 WBC 6.4 RBC 3.44 L Hgb 6.7 L 6.4 L Hct 22.7 L 22.1 L MCV 64 L MCH 19 L MCHC 29 L RDW 19.6 H Plt Count 245 Lymph % (Auto) 21.9 [place] % (Auto) 15.3 H Eos % (Auto) 2.4 Baso % (Auto) 0.8 Lymph # 1.4 [place] # 1.0 H Eos # 0.2 Baso # 0.0 Seg Neutrophils % 59.6 Seg Neutrophils # 3.8 Sodium Potassium Chloride Carbon Dioxide Anion Gap BUN Creatinine Estimated GFR BUN/Creatinine Ratio Glucose Calcium Blood Type O POSITIVE Antibody Screen Negative Crossmatch See Detail 03/09/20 06:40 WBC RBC Hgb Hct MCV MCH MCHC RDW Plt Count Lymph % (Auto) [place] % (Auto) Eos % (Auto) Baso % (Auto) Lymph # [place] # Eos # Baso # Seg Neutrophils % Seg Neutrophils # Sodium 142 Potassium 3.5 L Chloride 106.8 Carbon Dioxide 22 Anion Gap 17 BUN 13 Creatinine 0.5 L Estimated GFR > 60 BUN/Creatinine Ratio 26 Glucose 110 H Calcium 8.9 Blood Type Antibody Screen Crossmatch
[2020-03-10] MEDS: D5W/0.9% NACL 1,000 ML IV SCH (06:05)
[2020-03-10] MEDS ORDERED: POTASSIUM CHLORIDE ER 20 MEQ TAB PO ONE (06:42)
[2020-03-10 07:59] LABS: Hematocrit 26.3 % (35.5-45.6); Hemoglobin 8.9 gm/dl (11.8-15.2); Mean Corpuscular HGB Conc 34 % (32-34); Mean Corpuscular Volume 71 fl (84-94); Platelet Count 210 K/mm3 (140-440)
[2020-03-10 08:00] LABS: Red Cell Distribution Width 25.5 % (13.2-15.2)
--- NOTE | 2020-03-10 08:20 | Progress Note ---
Assessment and Plan Assessment and plan: Patient is 54 years old black male with history of cerebral palsy, and Allan's esophagus brought to the emergency room via EMS from his longterm for evaluation of coffee-ground emesis x1 started this morning. Patient able to answer simple questions. Patient informed that he had just one episode. Patient denied any chest pain or abdominal pain. Per nursing, patient had brown stool without melena or blood in the stools. Patient was recently admitted to the hospital for similar complaint and had an upper endoscopy by Dr. Rommel Olivera in December and found to have esophagitis. He was started on proton pump inhibitor that time and was discharged. At discharge from December admission, his Hgb was around 1 0. In the ER his hb is 8.0. Patient started on normal saline. Patient started on Protonix drip.No coffee-ground emesis observed in the ER so far. Vital signs stable. GI consulted in the ER and patient is being admitted for further evaluation and mx. --Sinus tachycardia: Check TSH and free T4 obtain an echocardiogram. -- Upper GI bleed monitor with Serial hemoglobin and hematocrit s/p IV Protonix drip now cont BID GI consulted but no plan for EGD now Transfuse as necessary - likely due to known esophagitis. EGD in 12/[address] Olivera showed esophagitis and tortuous esophagus. Path negative for dysplasia. --Blood loss anemia cont to monitor h/h hb 6.4 today transfuse -- Cerebral palsy Supportive care -- h/o reflux esophagitis cont PPI -- Overactive bladder resume Toviaz -- DVT prophylaxis SCDs and GI prophylaxis 03/09: Hb 6.4 - transfused 2 units of PRBC, monitor hh 03/10: If hemoglobin remains stable in a.m. will discharge patient. Outpatient cardiology recommended for recurrent tachycardia. From aspiration precaution History Interval history: Patient seen and examined no acute distress resting comfortably. Hospitalist Physical - Physical exam Narrative exam: General appearance: Present: no acute distress, well-nourished, laying flat - EENT Eyes: Present: PERRL ENT: hearing intact, clear oral mucosa - Neck Neck: Present: supple, normal ROM - Respiratory Respiratory effort: normal Respiratory: bilateral: CTA - Cardiovascular Heart rate: 78 Rhythm: regular Heart Sounds: Present: S1 & S2. Absent: rub, click - Extremities Extremities: pulses symmetrical, No edema Peripheral Pulses: within normal limits - Abdominal General gastrointestinal: Present: soft, non-tender, non-distended, normal bowel sounds Male genitourinary: Present: normal - Rectal Rectal Exam: stool brown - Integumentary Integumentary: Present: clear, warm, dry - Musculoskeletal Musculoskeletal: generalized weakness, other, B/L LE and LUE muscle wasting - Psychiatric Psychiatric: appropriate mood/affect - Neurologic Neurologic: CNII-XII intact, left sided spastic paralysis - Allied Health Allied health notes reviewed: nursing, case management - Constitutional Vitals: Temp Pulse Resp BP Pulse Ox 98.0 F 103 H 20 129/74 98 03/10/20 07:37 03/10/20 07:37 03/10/20 07:37 03/10/20 07:37 03/10/20 07:37 Results - Labs CBC & Chem 7: 03/10/20 07:13 03/09/20 06:40 Labs: Laboratory Last Values WBC 8.3 K/mm3 (4.5-11.0) 03/10/20 07:13 RBC 3.70 M/mm3 (3.65-5.03) 03/10/20 07:13 Hgb 8.9 gm/dl (11.8-15.2) L 03/10/20 07:13 Hct 26.3 % (35.5-45.6) L 03/10/20 07:13 MCV 71 fl (84-94) L 03/10/20 07:13 MCH 24 pg (28-32) L 03/10/20 07:13 MCHC 34 % (32-34) 03/10/20 07:13 RDW 25.5 % (13.2-15.2) H 03/10/20 07:13 Plt Count 210 K/mm3 (140-440) 03/10/20 07:13 Lymph % (Auto) 21.9 % (13.4-35.0) 03/09/20 06:40 [place] % (Auto) 15.3 % (0.0-7.3) H 03/09/20 06:40 Eos % (Auto) 2.4 % (0.0-4.3) 03/09/20 06:40 Baso % (Auto) 0.8 % (0.0-1.8) 03/09/20 06:40 Lymph # 1.4 K/mm3 (1.2-5.4) 03/09/20 06:40 [place] # 1.0 K/mm3 (0.0-0.8) H 03/09/20 06:40 Eos # 0.2 K/mm3 (0.0-0.4) 03/09/20 06:40 Baso # 0.0 K/mm3 (0.0-0.1) 03/09/20 06:40 Seg Neutrophils % 59.6 % (40.0-70.0) 03/09/20 06:40 Seg Neutrophils # 3.8 K/mm3 (1.8-7.7) 03/09/20 06:40 PT 13.5 Sec. (12.2-14.9) 03/08/20 06:56 INR 1.01 (0.87-1.13) 03/08/20 06:56 APTT 33.0 Sec. (24.2-36.6) 03/08/20 06:56 Sodium 142 mmol/L (137-145) 03/09/20 06:40 Potassium 3.5 mmol/L (3.6-5.0) L 03/09/20 06:40 Chloride 106.8 mmol/L (98-107) 03/09/20 06:40 Carbon Dioxide 22 mmol/L (22-30) 03/09/20 06:40 Anion Gap 17 mmol/L 03/09/20 06:40 BUN 13 mg/dL (9-20) 03/09/20 06:40 Creatinine 0.5 mg/dL (0.8-1.3) L 03/09/20 06:40 Estimated GFR > 60 ml/min 03/09/20 06:40 BUN/Creatinine Ratio 26 % 03/09/20 06:40 Glucose 110 mg/dL (75-100) H 03/09/20 06:40 Lactic Acid 1.30 mmol/L (0.7-2.0) 03/08/20 06:56 Calcium 8.9 mg/dL (8.4-10.2) 03/09/20 06:40 Total Bilirubin 0.50 mg/dL (0.1-1.2) 03/08/20 06:56 Direct Bilirubin < 0.2 mg/dL (0-0.2) 08/23/20 06:56 AST 16 units/L (5-40) 03/08/20 06:56 ALT 10 units/L (7-56) 03/08/20 06:56 Alkaline Phosphatase 109 units/L (35-129) 03/08/20 06:56 Total Protein 8.0 g/dL (6.3-8.2) 03/08/20 06:56 Albumin 3.8 g/dL (3.9-5) L 03/08/20 06:56 Albumin/Globulin Ratio 0.9 % 03/08/20 06:56 Blood Type O POSITIVE 03/08/20 06:56 Antibody Screen Negative 03/08/20 06:56 Crossmatch See Detail 03/08/20 06:56 Microbiology: Microbiology 03/10/20 04:41 Stool Stool Occult Blood (MARTHA) - Final Vincent/IV: Voiding Method Condom Catheter IV Catheter Type [Right INT / Saline Lock Forearm] IV Catheter Type [Right INT / Saline Lock Antecubital] Active Medications - Current Medications Current Medications: Generic Name Dose Route Start Last Admin Trade Name Kikeq PRN Reason Stop Dose Admin Glycopyrrolate 2 mg 03/10/20 10:00 Robinul PO BID NATALIE Dextrose/Sodium Chloride 1,000 mls @ 75 mls/hr 03/08/20 11:00 03/10/20 06:05 D5ns IV 75 mls/hr DIRECT NATALIE Administration Miscellaneous Medication 8 mg 03/10/20 10:00 Fesoterodine Fumarate Er (Nf) PO DAILY [facility] Ondansetron HCl 4 mg 03/10/20 08:00 Zofran Odt PO TID NATALIE Pantoprazole Sodium 40 mg 03/08/20 15:00 03/09/20 21:53 Protonix PO 40 mg BID NATALIE Administration Polyethylene Glycol 17 gm 03/10/20 10:00 Miralax 3350 PO QDAY NATALIE Tramadol HCl 50 mg 03/10/20 22:00 Ultram PO NATALIE
[2020-03-10 09:28] LABS: Free T4 (Free Thyroxine) 1.42 ng/dL (0.76-1.46)
[2020-03-10] MEDS ORDERED: FESOTERODINE FUMARATE 8 MG PO SCH (10:00)
[2020-03-10] MEDS ORDERED: GLYCOPYRROLATE 1 MG TAB PO SCH (10:00)
[2020-03-10] MEDS: PANTOPRAZOLE 40 MG TAB PO SCH ×2 (10:16→21:07)
[2020-03-10] MEDS: ONDANSETRON 4 MG ODT TAB PO SCH ×3 (10:16→21:04)
[2020-03-10] MEDS: POLYETHYLENE GLYCOL 3350 17 GM POWDER PO SCH (10:16)
[2020-03-10] MEDS: GLYCOPYRROLATE 2 MG TAB PO SCH ×2 (10:16→21:06)
--- NOTE | 2020-03-10 11:50 | Gastroenterology Progress Note ---
Assessment and Plan This is a 54 yo male with cerebral palsy who lives in a residential admitted overnight for episode of coffee ground emesis. - Patient Problems (1) Upper GI bleed Current Visit: Yes Status: Acute Plan to address problem: # Coffee ground emesis: per report from nursing facility. - no active signs of bleeding. No recurrent vomiting per nursing. No melena or blood in the stools. - Hgb close to previous discharge baseline from recent admission earlier this month. - likely due to known esophagitis. EGD in 12/[address] Olivera showed esophagitis and tortuous esophagus. Path negative for dysplasia. Unclear if patient is receiving protonix as outpatient. - Hgb trended down and received PRBC transfusion on 03/09/2020. Responded a ppropriately. Rec - monitor H/H. - advance diet as tolerated. - no plans for endoscopy given recent EGD 2 months ago unless active bleeding signs. - cont with protonix. can switch to PO dosing. - will follow. (2) GERD (gastroesophageal reflux disease) Current Visit: No Status: Acute Qualifiers: Esophagitis presence: with esophagitis Qualified Code(s): K21.0 - Gastro- esophageal reflux disease with esophagitis Subjective Date of service: 03/10/20 Interval history: No nausea/vomiting. No BM. No abdominal pain. Per nursing, tolerating diet well. No BM. Objective - Constitutional Vitals: Temp Pulse Resp BP Pulse Ox 98.7 F 97 H 18 114/76 96 03/10/20 11:23 03/10/20 11:23 03/10/20 11:23 03/10/20 11:23 03/10/20 11:23 General appearance: no acute distress - EENT Eyes: EOM intact ENT: hearing intact - Neck Neck: supple - Respiratory Respiratory effort: normal - Gastrointestinal General gastrointestinal: Present: soft, non-tender, non-distended - Integumentary Integumentary: Present: clear - Labs CBC & Chem 7: 03/10/20 07:13 03/09/20 06:40 Labs: Laboratory Results - last 24 hr 03/08/20 03/10/20 03/10/20 06:56 07:13 08:23 WBC 8.3 RBC 3.70 Hgb 8.9 L Hct 26.3 L MCV 71 L MCH 24 L MCHC 34 RDW 25.5 H Plt Count 210 TSH 0.554 Free T4 1.42 Blood Type O POSITIVE Antibody Screen Negative Crossmatch See Detail
[2020-03-10] MEDS ORDERED: traMADol 50 MG TAB PO SCH (22:00)
[2020-03-11 07:04] LABS: Hematocrit 27.2 % (35.5-45.6); Hemoglobin 8.6 gm/dl (11.8-15.2); Mean Corpuscular HGB Conc 32 % (32-34); Mean Corpuscular Volume 71 fl (84-94); Platelet Count 188 K/mm3 (140-440)
[2020-03-11 07:16] LABS: Red Cell Distribution Width 25.5 % (13.2-15.2)
[2020-03-11 07:31] LABS: BUN/Creatinine Ratio 8; Blood Urea Nitrogen 3 mg/dL (9-20); Calcium 8.4 mg/dL (8.4-10.2); Hemolysis Index 10
[2020-03-11] MEDS: ONDANSETRON 4 MG ODT TAB PO SCH ×2 (09:15→14:20)
[2020-03-11] MEDS: GLYCOPYRROLATE 2 MG TAB PO SCH (09:15)
[2020-03-11] MEDS: POLYETHYLENE GLYCOL 3350 17 GM POWDER PO SCH (09:16)
[2020-03-11] MEDS: PANTOPRAZOLE 40 MG TAB PO SCH (09:16)
--- NOTE | 2020-03-11 09:55 | Discharge Summary ---
Providers - Providers Date of Admission: 03/09/20 16:21 Attending physician: KELLI VELAZQUEZ MD 03/08/20 10:48 Consult to Physician [CONS] Routine Comment: Consulting Provider: GENNY CLEMENTS Physician Instructions: Reason For Exam: GI bleed Primary care physician: [facility], Hospitalization Reason for admission: GI bleed Condition: Stable Hospital course: Patient is 54 years old black male with history of cerebral palsy, and Allan's esophagus brought to the emergency room via EMS from his snf for evalu ation of coffee-ground emesis x1 started this morning. Patient able to answer simple questions. Patient informed that he had just one episode. Patient denied any chest pain or abdominal pain. Per nursing, patient had brown stool without melena or blood in the stools. Patient was recently admitted to the hospital for similar complaint and had an upper endoscopy by Dr. Rommel Olivera in December and found to have esophagitis. He was started on proton pump inhibitor that time and was discharged. At discharge from December admission, his Hgb was around 10. In the ER his hb is 8.0. Patient started on normal saline. Patient started on Protonix drip.No coffee-ground emesis observed in the ER so far. Vital signs stable. GI consulted in the ER and patient is being admitted for further evaluation and mx. Patient was monitored and give 2 units PRBC, GI recommended this is likely due to known esophagitis. EGD in 12/[address] Olivera showed esophagitis and tortuous esophagus. Path negative for dysplasia. Hgb has remained stable. --Sinus tachycardia -- Upper GI bleed -- Acute Blood loss anemia -- Cerebral palsy -- h/o reflux esophagitis -- Overactive bladder Disposition: DC- TO HOME OR SELFCARE Time spent for discharge: 35 MINS Core Measure Documentation - Palliative Care Palliative Care/ Comfort Measures: Not Applicable - Core Measures Any of the following diagnoses?: none Exam - Physical Exam Narrative exam: General appearance: Present: no acute distress, well-nourished, laying flat - EENT Eyes: Present: PERRL ENT: hearing intact, clear oral mucosa - Neck Neck: Present: supple, normal ROM - Respiratory Respiratory effort: normal Respiratory: bilateral: CTA - Cardiovascular Heart rate: 78 Rhythm: regular Heart Sounds: Present: S1 & S2. Absent: rub, click - Extremities Extremities: pulses symmetrical, No edema Peripheral Pulses: within normal limits - Abdominal General gastrointestinal: Present: soft, non-tender, non-distended, normal bowel sounds Male genitourinary: Present: normal - Rectal Rectal Exam: stool brown - Integumentary Integumentary: Present: clear, warm, dry - Musculoskeletal Musculoskeletal: generalized weakness, other, B/L LE and LUE muscle wasting - Psychiatric Psychiatric: appropriate mood/affect - Neurologic Neurologic: CNII-XII intact, left sided spastic paralysis - Allied Health Allied health notes reviewed: nursing, case management - Constitutional Vitals: Temp Pulse Resp BP Pulse Ox 97.6 F 80 18 97/61 99 03/11/20 08:00 03/11/20 08:00 03/11/20 08:00 03/11/20 08:00 03/11/20 08:00 Plan Activity: advance as tolerated, fall precautions Diet: low fat Special Instructions: record daily weights, record daily BP diary Follow up with: ABDIEL ALAS MD [Primary Care Provider] - 7 Days Forms: Accompanied Note Prescriptions: Pantoprazole [Protonix TAB] 40 mg PO BID #60 tablet
[2020-03-11 11:19] VITALS: BP 107/65
--- NOTE | 2020-03-11 13:19 | Gastroenterology Progress Note ---
Assessment and Plan This is a 54 yo male with cerebral palsy who lives in a [facility] admitted overnight for episode of coffee ground emesis. - Patient Problems (1) Upper GI bleed Current Visit: Yes Status: Acute Plan to address problem: # Coffee ground emesis: per report from nursing facility. - no active signs of bleeding. No recurrent vomiting per nursing. No melena or blood in the stools. - Hgb close to previous discharge baseline from recent admission earlier this month. - likely due to known esophagitis. EGD in 12/[address] Olivera showed esophagitis and tortuous esophagus. Path negative for dysplasia. Unclear if patient is receiving protonix as outpatient. - Hgb trended down and received PRBC transfusion on 03/09/2020. Responded a ppropriately. - H/H stable. Rec - no plans for endoscopy given recent EGD 2 months ago unless active bleeding signs. - cont with protonix - planned for discharge today. - will sign off. (2) GERD (gastroesophageal reflux disease) Current Visit: No Status: Acute Qualifiers: Esophagitis presence: with esophagitis Qualified Code(s): K21.0 - Gastro- esophageal reflux disease with esophagitis Subjective Date of service: 03/11/20 Interval history: No acute events. No bleeding signs. No nausea/vomiting Objective - Constitutional Vitals: Temp Pulse Resp BP Pulse Ox 97.4 F L 76 19 107/65 99 03/11/20 11:00 03/11/20 11:00 03/11/20 11:00 03/11/20 11:00 03/11/20 11:00 General appearance: no acute distress - EENT Eyes: EOM intact ENT: hearing intact - Respiratory Respiratory effort: normal - Cardiovascular Rhythm: regular Heart Sounds: Present: S1 & S2 - Gastrointestinal General gastrointestinal: Present: soft, non-tender, non-distended - Labs CBC & Chem 7: 03/11/20 06:17 03/11/20 06:17 Labs: Laboratory Results - last 24 hr 03/10/20 03/11/20 03/11/20 04:41 06:17 06:17 WBC 8.7 RBC 3.80 Hgb 8.6 L Hct 27.2 L MCV 71 L MCH 23 L MCHC 32 RDW 25.5 H Plt Count 188 Sodium 141 Potassium 3.6 Chloride 106.1 Carbon Dioxide 22 Anion Gap 17 BUN 3 L Creatinine 0.4 L Estimated GFR > 60 BUN/Creatinine Ratio 8 Glucose 90 Calcium 8.4 Nasal Screen MRSA (PCR) Negative
== END 2020-03-11 14:55 | disposition home or self-care (01) | DRG 377 ==
LOC: ED 06:26 → 4A 09:52 → 3B-SURG 10:16 → OBSVTOIN 03-09 16:21
PROVIDERS: ADMIT Internal Medicine; ATTEND Internal Medicine
PROC: 30233N1 Transfusion of Nonautologous Red Blood Cells into Peripheral Vein, Percutaneous Approach (ICD-10-PCS; principal; 2020-03-09)
DX: K92.2 Gastrointestinal hemorrhage, unspecified (principal); G82.50 Quadriplegia, unspecified; D62 Acute posthemorrhagic anemia; K21.0 Gastro-esophageal reflux disease with esophagitis; N32.81 Overactive bladder; R00.0 Tachycardia, unspecified; Z87.891 Personal history of nicotine dependence
CPT/HCPCS: 36415; 80048; 80076; 82140; 82270; 84439; 84443; 85014; 85018; 85025; 85027; 85610; 85730; 86850; 86900; 86901; 86920; 87641; 93005; 96366; 96374; G0378; C9113; J2405; J7030; J7042; P9016; Q0162

== ENCOUNTER 2020-03-19 11:01 | Emergency (ER) | payer MEDICARE ==
[2020-03-19] MEDS ORDERED: SODIUM CHLORIDE 0.9% 1000 ML 1,000 ML IV ONE ×2 (11:23→12:37)
--- NOTE | 2020-03-19 11:27 | Emergency Department Report ---
HPI - General Time Seen by Provider: 03/19/20 11:20 - HPI HPI: This is a 54-year-old -Dominican male presents to the emergency department via EMS from his personal intermediate with complaint of abdominal pain. He has a past medical history that includes cerebral palsy with spastic quadriplegia, chronic dysphasia, Allan's esophagus and esophagitis, GERD. Patient was just admitted here at the end of last month for an episode of coffee-ground emesis, abdominal pain. The patient answer some questions in a yes or no fashion and denies any current nausea or vomiting. Patient had an EGD done in December of this year by Dr. Olivera that showed distal esophagitis and a tortuous esophagus and the patient is being treated with Protonix. 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 therapy - Surgical History Additional Surgical History: unknown - Social History Smoking Status: Never Smoker - Medications Home Medications: Home Medications Medication Instructions Recorded Confirmed Last Taken Type Nystatin [Nystop Powder] 100,000 gm PO DAILY 09/04/13 03/19/20 02/29/20 History Ketoconazole [Ketoconazole shampoo] 120 ml TP PRN 09/06/19 03/19/20 02/29/20 History Lactulose 10 gm PO BID #1000 ml 09/20/19 03/19/20 02/29/20 Rx Fesoterodine Fumarate ER (Nf) 8 mg PO DAILY 01/13/20 03/19/20 02/29/20 History [Toviaz ER (Nf)] Vitamin D3 1,000 UNIT TAB 1 tab PO BID 01/13/20 03/19/20 02/29/20 History polyethylene glycoL 3350 [Miralax 17 gm PO QDAY 01/13/20 03/19/20 02/29/20 History 3350] traMADoL [Ultram 50 MG tab] 50 mg PO HS 01/13/20 03/19/20 03/03/20 History Glycopyrrolate 2 mg PO BID tablet 03/11/20 03/19/20 Unknown Rx Pantoprazole [Protonix TAB] 40 mg PO BID #60 tablet 03/11/20 03/19/20 Unknown Rx ED Review of Systems ROS: Stated complaint: ABD PAIN Other details as noted in HPI Comment: Unobtainable due to pts medical conditions Gastrointestinal: abdominal pain. denies: nausea, vomiting Physical Exam - Physical Exam Physical Exam: GENERAL: The patient is well-developed well-nourished. HENT: Normocephalic. Atraumatic. Patient has moist mucous membranes. EYES: Extraocular motions are intact. NECK: Supple. Trachea is midline. CHEST/LUNGS: Clear to auscultation. There is no respiratory distress noted. HEART/CARDIOVASCULAR: Regular. There is no tachycardia. There is no murmur. ABDOMEN: Abdomen is soft, nontender. Patient has normal bowel sounds. SKIN: Skin is warm and dry. NEURO: The patient is awake and follows some commands. Withdraws from painful stimuli. MUSCULOSKELETAL: Patient is contracted to the bilateral lower extremities and left upper extremity. He has spastic quadriparesis. ED Course - Reevaluation(s) Reevaluation #1: 03/19/20 19:25 Lab Results 03/19/20 03/19/20 03/19/20 Range/Units 11:38 11:38 16:10 WBC 17.6 H (4.5-11.0) K/mm3 RBC 4.18 (3.65-5.03) M/mm3 Hgb 8.8 L (11.8-15.2) gm/dl Hct 29.3 L (35.5-45.6) % MCV 70 L (84-94) fl MCH 21 L (28-32) pg MCHC 30 L (32-34) % RDW 27.7 H (13.2-15.2) % Plt Count 388 (140-440) K/mm3 Add Manual Diff Complete Total Counted 100 Seg Neuts % (Manual) 88.0 H (40.0-70.0) % Band Neutrophils % 1.0 % Lymphocytes % (Manual) 6.0 L (13.4-35.0) % Reactive Lymphs % (Man) 0 % Monocytes % (Manual) 5.0 (0.0-7.3) % Eosinophils % (Manual) 0 (0.0-4.3) % Basophils % (Manual) 0 (0.0-1.8) % Metamyelocytes % 0 % Myelocytes % 0 % Promyelocytes % 0 % Blast Cells % 0 % Nucleated RBC % Not Reportable Seg Neutrophils # Man 15.5 H (1.8-7.7) K/mm3 Band Neutrophils # 0.2 K/mm3 Lymphocytes # (Manual) 1.1 L (1.2-5.4) K/mm3 Abs React Lymphs (Man) 0.0 K/mm3 Monocytes # (Manual) 0.9 H (0.0-0.8) K/mm3 Eosinophils # (Manual) 0.0 (0.0-0.4) K/mm3 Basophils # (Manual) 0.0 (0.0-0.1) K/mm3 Metamyelocytes # 0.0 K/mm3 Myelocytes # 0.0 K/mm3 Promyelocytes # 0.0 K/mm3 Blast Cells # 0.0 K/mm3 WBC Morphology Not Reportable Hypersegmented Neuts Not Reportable Hyposegmented Neuts Not Reportable Hypogranular Neuts Not Reportable Smudge Cells Not Reportable Toxic Granulation Not Reportable Toxic Vacuolation Not Reportable Dohle Bodies Not Reportable Pelger-Huet Anomaly Not Reportable Filipe Rods Not Reportable Platelet Estimate Consistent w auto Clumped Platelets Not Reportable Plt Clumps, EDTA Not Reportable Large Platelets Not Reportable Giant Platelets Not Reportable Platelet Satelliting Not Reportable Plt Morphology Comment Not Reportable RBC Morphology Not Reportable Dimorphic RBCs Not Reportable Polychromasia Not Reportable Hypochromasia 2+ Poikilocytosis 2+ Anisocytosis 3+ Microcytosis Not Reportable Macrocytosis Not Reportable Spherocytes Not Reportable Pappenheimer Bodies Not Reportable Sickle Cells Not Reportable Target Cells Not Reportable Tear Drop Cells 1+ Ovalocytes Few Helmet Cells Not Reportable Garcia-[place] Bodies Not Reportable Penryn Rings Not Reportable Lala Cells Not Reportable Bite Cells Not Reportable Crenated Cell Not Reportable Elliptocytes 1+ Acanthocytes (Spur) Not Reportable Rouleaux Not Reportable Hemoglobin C Crystals Not Reportable Schistocytes Not Reportable Malaria parasites Not Reportable Navneet Bodies Not Reportable Hem Pathologist Commnt No Sodium 140 (137-145) mmol/L Potassium 4.2 (3.6-5.0) mmol/L Chloride 103.0 (98-107) mmol/L Carbon Dioxide 23 (22-30) mmol/L Anion Gap 18 mmol/L BUN 24 H (9-20) mg/dL Creatinine 0.4 L (0.8-1.3) mg/dL Estimated GFR > 60 ml/min BUN/Creatinine Ratio 60 % Glucose 132 H (75-100) mg/dL Calcium 8.7 (8.4-10.2) mg/dL Total Bilirubin 0.40 (0.1-1.2) mg/dL AST 18 (5-40) units/L ALT 15 (7-56) units/L Alkaline Phosphatase 95 (35-129) units/L Total Protein 7.1 (6.3-8.2) g/dL Albumin 3.6 L (3.9-5) g/dL Albumin/Globulin Ratio 1.0 % Lipase 9 L (13-60) units/L Urine Color Yellow (Yellow) Urine Turbidity Clear (Clear) Urine pH 8.0 H (5.0-7.0) Ur Specific [place] 1.018 (1.003-1.030) Urine Protein <15 mg/dl (Negative) mg/dL Urine Glucose (UA) Neg (Negative) mg/dL Urine Ketones Tr (Negative) mg/dL Urine Blood Neg (Negative) Urine Nitrite Neg (Negative) Urine Bilirubin Neg (Negative) Urine Urobilinogen 4.0 (<2.0) mg/dL Ur Leukocyte Esterase Neg (Negative) Urine WBC (Auto) 1.0 (0.0-6.0) /HPF Urine RBC (Auto) 2.0 (0.0-6.0) /HPF U Epithel Cells (Auto) < 1.0 (0-13.0) /HPF Urine Mucus Few /HPF - EJ/Peripheral Line Neck R Time Out Performed: Yes Indications: nurses unable to establis Skin Cleansed in Sterile Fashion: Yes Size: 20 Dressing Placed: Tegaderm Patient Tolerated Procedure: well ED Medical Decision Making - Lab Data Result diagrams: 03/19/20 11:38 03/19/20 11:38 - EKG Data -: EKG Interpreted by Me EKG shows normal: sinus rhythm, axis, intervals, QRS complexes, ST-T waves Rate: tachycardia (131 bpm) - EKG Data When compared to previous EKG there are: previous EKG unavailable Interpretation: other (Sinus tachycardia, normal axis, normal intervals, no ST elevation [place]) - Radiology Data Radiology results: report reviewed, image reviewed interpreted by me: Abdominal x-ray shows increased stool volume. CT ABDOMEN AND PELVIS WITHOUT CONTRAST INDICATION / CLINICAL INFORMATION: Abdominal pain. TECHNIQUE: Axial CT images were obtained through the abdomen and pelvis without IV contrast. All CT scans at this location are performed using CT dose reduction for ALARA by means of automated exposure control. COMPARISON: None available. FINDINGS: LOWER CHEST: Bibasilar atelectasis with elevation of both hemidiaphragms which is unchanged. LIVER: No significant abnormality. GALLBLADDER: No significant abnormality. BILE DUCTS: No significant abnormality. PANCREAS: No significant abnormality. SPLEEN: No significant abnormality. ADRENALS: No significant abnormality. RIGHT KIDNEY / URETER: Right renal cyst is unchanged. No acute abnormality. LEFT KIDNEY / URETER: No significant abnormality. STOMACH / SMALL BOWEL: Stomach is moderately dilated with fluid and food material with a dilated, fluid-filled esophagus likely related to reflux. No small bowel dilation. COLON: No significant abnormality. APPENDIX: No significant abnormality. PERITONEUM: No free fluid. No free air. No fluid collection. LYMPH NODES: No significant adenopathy. AORTA / ARTERIES: No significant abnormality. IVC / VEINS: No significant abnormality. URINARY BLADDER: Several tiny nonobstructing bladder stones are unchanged. Soft tissue density in the posterior urinary bladder is unchanged. This could represent an extruded BPH nodule versus an intrinsic bladder lesion. REPRODUCTIVE ORGANS: Prostate is enlarged. ADDITIONAL FINDINGS: None. SKELETAL SYSTEM: Advanced bilateral hip degenerative arthrosis and scoliosis is unchanged. IMPRESSION: 1. Dilated, fluid-filled esophagus and stomach with possible gastroesophageal reflux. No small bowel obstruction. 2. No inflammatory process. 3. Small calcified bladder stones, unchanged. 4. Soft tissue mass in the posterior urinary bladder which is unchanged from the most recent study. This may represent an extruded BPH prostate nodule versus intrinsic bladder lesion. - Medical Decision Making This patient presented with a complaint of abdominal pain. Initially the patient had moderate tachycardia but the rest of his vital signs were reassuring including being afebrile. Abdominal x-ray showed increased stool volume but otherwise nonobstructive not specific bowel gas. The patient's labs shows a hemoglobin of 8.8 which is slightly increased from his previous visit. He also has a mild leukocytosis of 17,000. The rest of the labs are mostly unremarkable including complete metabolic panel and his urinalysis. CT scan of the abdomen and pelvis shows a dilated fluid-filled esophagus and stomach consistent with some gastroesophageal reflux, but otherwise there was no bowel obstruction or inflammatory process. The patient has a history of esophagitis and acid reflux and this appears consistent with previous visits as well. Patient was given some IV fluid resuscitation and the tachycardia has also improved. Patient does not appear in any acute distress or have any emergent condition at this time that requires admission and will be discharged back to his personal intermediate. I discussed all of the labs, imaging and outpatient follow-up plan with his POA. They have been instructed to return to the emergency department with any worsening of his symptoms or with any acute distress. Critical Care Time: No Critical care attestation.: If time is entered above; I have spent that time in minutes in the direct care of this critically ill patient, excluding procedure time. ED Disposition Clinical Impression: GERD (gastroesophageal reflux disease) Qualifiers: Esophagitis presence: with esophagitis Qualified Code(s): K21.0 - Gastro- esophageal reflux disease with esophagitis Abdominal pain Qualifiers: Abdominal location: unspecified location Qualified Code(s): R10.9 - Unspecified abdominal pain Disposition: TO HOME OR SELFCARE Is pt being admited?: No Condition: Stable Instructions: Gastroesophageal Reflux Disease (ED), Abdominal Pain (ED) Additional Instructions: Please follow-up with your primary care physician and your project scheduler. Return to the emergency department with any worsening of your symptoms or with any acute distress. Please continue taking your Protonix, PPI. Referrals: CHANDAN GARCIA MD [Primary Care Provider] - 3-5 Days [facility] [Provider Group] - 3-5 Days Time of Disposition: 17:09
[2020-03-19] MEDS ORDERED: PANTOPRAZOLE 40 MG INJ IV ONE (11:36)
[2020-03-19 11:55] LABS: Hematocrit 29.3 % (35.5-45.6); Hemoglobin 8.8 gm/dl (11.8-15.2); Mean Corpuscular HGB Conc 30 % (32-34); Mean Corpuscular Volume 70 fl (84-94); Platelet Count 388 K/mm3 (140-440); Red Blood Count 4.18 M/mm3 (3.65-5.03)
[2020-03-19 11:56] LABS: Red Cell Distribution Width 27.7 % (13.2-15.2)
[2020-03-19 12:15] LABS: Alanine Aminotransferase 15 units/L (7-56); Albumin 3.6 g/dL (3.9-5); Blood Urea Nitrogen 24 mg/dL (9-20); Calcium 8.7 mg/dL (8.4-10.2); Hemolysis Index 1
[2020-03-19 12:26] LABS: BUN/Creatinine Ratio 60
[2020-03-19] MEDS ORDERED: LORazepam 2 MG/ML VIAL IV ONE (12:28)
[2020-03-19] MEDS ORDERED: MORPHINE 4 MG/1 ML INJ IV ONE (12:37)
[2020-03-19 12:44] LABS: Anisocytosis 3+; Band Neutrophils # (Manual) 0.2 K/mm3; Basophils % (Manual) 0 % (0.0-1.8); Eosinophils % (Manual) 0 % (0.0-4.3); Hypochromasia 2+; Ovalocytes Few; Poikilocytosis 2+; Tear Drop Cells 1+; Total Cells Counted 100
[2020-03-19 12:45] LABS: Platelet Estimate Consistent w Auto
--- NOTE | 2020-03-19 14:18 | XRay Report ---
ABDOMEN 3 VIEW(S) INDICATION / CLINICAL INFORMATION: Abd pain. COMPARISON: Chest x-ray from 02/16/2020 FINDINGS: TUBES / LINES: None. BOWEL GAS PATTERN: Large rectosigmoid colonic stool burden may suggest impaction. Otherwise nonobstru ctive bowel gas pattern. FREE AIR / EXTRALUMINAL GAS: None seen. ADDITIONAL FINDINGS: Bony changes of cerebral palsy noted in the pelvis. IMPRESSION: 1. Findings worrisome for fecal impaction as above. Otherwise nonobstructive bowel gas pattern. Signer Name: Castro Fernández MD Signed: 03/19/2020 2:14 PM Workstation Name: [id number]
[2020-03-19 16:24] LABS: Bilirubin,Urine NEG (Negative); Blood,Urine NEG (Negative); Color,Urine Yellow (Yellow); Mucus,Urine FEW /HPF; Protein,Urine <15 mg/dL mg/dL (Negative)
--- NOTE | 2020-03-19 16:57 | Cat Scan Report ---
CT ABDOMEN AND PELVIS WITHOUT CONTRAST INDICATION / CLINICAL INFORMATION: Abdominal pain. TECHNIQUE: Axial CT images were obtained through the abdomen and pelvis without IV contrast. All CT scans at [facility] location are performed using CT dose reduction for ALARA by means of automated exposure control. COMPARISON: None available. FINDINGS: LOWER CHEST: Bibasilar atelectasis with elevation of both hemidiaphragms which is unchanged. LIVER: No significant abnormality. GALLBLADDER: No significant abnormality. BILE DUCTS: No significant abnormality. PANCREAS: No significant abnormality. SPLEEN: No significant abnormality. ADRENALS: No significant abnormality. RIGHT KIDNEY / URETER: Right renal cyst is unchanged. No acute abnormality. LEFT KIDNEY / URETER: No significant abnormality. STOMACH / SMALL BOWEL: Stomach is moderately dilated with fluid and food material with a dilated, flu id-filled esophagus likely related to reflux. No small bowel dilation. COLON: No significant abnormality. APPENDIX: No significant abnormality. PERITONEUM: No free fluid. No free air. No fluid collection. LYMPH NODES: No significant adenopathy. AORTA / ARTERIES: No significant abnormality. IVC / VEINS: No significant abnormality. URINARY BLADDER: Several tiny nonobstructing bladder stones are unchanged. Soft tissue density in the posterior urinary bladder is unchanged. This could represent an extruded BPH nodule versus an intrin sic bladder lesion. REPRODUCTIVE ORGANS: Prostate is enlarged. ADDITIONAL FINDINGS: None. SKELETAL SYSTEM: Advanced bilateral hip degenerative arthrosis and scoliosis is unchanged. IMPRESSION: 1. Dilated, fluid-filled esophagus and stomach with possible gastroesophageal reflux. No small bowel obstruction. 2. No inflammatory process. 3. Small calcified bladder stones, unchanged. 4. Soft tissue mass in the posterior urinary bladder which is unchanged from the most recent study. T his may represent an extruded BPH prostate nodule versus intrinsic bladder lesion. Signer Name: Mat Miranda MD Signed: 03/19/2020 4:53 PM Workstation Name: [id number]
[2020-03-19 21:08] VITALS: BP 126/74
== END 2020-03-19 21:11 | disposition home or self-care (01) ==
LOC: ED 11:01
DX: K21.9 Gastro-esophageal reflux disease without esophagitis (principal); R10.9 Unspecified abdominal pain; Z79.899 Other long term (current) drug therapy
CPT/HCPCS: 36415; 36556; 74019; 74176; 80053; 81001; 83690; 85007; 85025; 93005; 96361; 96374; 96375; 99285; C9113; J2060; J2270; J7030

== ENCOUNTER 2020-03-19 23:52 | Emergency (ER) | payer MEDICARE ==
[2020-03-20] MEDS ORDERED: ONDANSETRON 4 MG/2 ML INJ IM ONE (00:03)
--- NOTE | 2020-03-20 00:56 | Emergency Department Report ---
ED N/V/D HPI - General Stated complaint: N/V Time Seen by Provider: 03/20/20 00:00 - History of Present Illness Initial comments: Patient is a 54-year-old gentleman with erosive esophagitis found on EGD approximately a month ago who was here earlier today for some nausea and abdominal discomfort. CT was performed which showed some distention of the stomach but no obstruction. Laboratory studies were stable. Patient's hemoglobin is actually slightly higher than his previous admission. Patient was given medications and sent home. Upon arriving home the patient had an episode of emesis which the caregiver stated looked like coffee grounds. Patient has had several episodes such as this in the last month since being diagnosed with erosive esophagitis. Patient appears well at this time is seems as though he is at his baseline. Spoke with the patient's caregiver who stated that the patient is medications were changed from omeprazole to Protonix. She states that he was doing very well on omeprazole and only started having issues once this medication was stopped and switched. Patient also was on famotidine. - Related Data Home Medications Medication Instructions Recorded Confirmed Last Taken Nystatin [Nystop Powder] 100,000 gm PO DAILY 09/04/13 03/19/20 02/29/20 Ketoconazole [Ketoconazole shampoo] 120 ml TP PRN 09/06/19 03/19/20 02/29/20 Fesoterodine Fumarate ER (Nf) 8 mg PO DAILY 01/13/20 03/19/20 02/29/20 [Toviaz ER (Nf)] Vitamin D3 1,000 UNIT TAB 1 tab PO BID 01/13/20 03/19/20 02/29/20 polyethylene glycoL 3350 [Miralax 17 gm PO QDAY 01/13/20 03/19/20 02/29/20 3350] traMADoL [Ultram 50 MG tab] 50 mg PO HS 01/13/20 03/19/20 03/03/20 Previous Rx's Medication Instructions Recorded Last Taken Type Lactulose 10 gm PO BID #1000 ml 09/20/19 02/29/20 Rx Glycopyrrolate 2 mg PO BID tablet 03/11/20 Unknown Rx Pantoprazole [Protonix TAB] 40 mg PO BID #60 tablet 03/11/20 Unknown Rx Omeprazole 40 mg PO DAILY #30 capsule. 03/20/20 Unknown Rx Ondansetron [Zofran Odt] 4 mg PO Q8HR #20 tab.rapdis 03/20/20 Unknown Rx Sucralfate [Carafate] 1 gm PO ACHS 30 Days udc 03/20/20 Unknown Rx Allergies Allergy/AdvReac Type Severity Reaction Status Date / Time No Known Allergies Allergy Unverified 03/19/20 13:18 ED Review of Systems ROS: Stated complaint: N/V Other details as noted in HPI Comment: All other systems reviewed and negative 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, moderate MR, hydrocephalus, cerebral palsy, quadriplegic,, constipation, senior living drug therapy - Surgical History Additional Surgical History: unknown - Social History Smoking Status: Never Smoker - Medications Home Medications: Home Medications Medication Instructions Recorded Confirmed Last Taken Type Nystatin [Nystop Powder] 100,000 gm PO DAILY 09/04/13 03/19/20 02/29/20 History Ketoconazole [Ketoconazole shampoo] 120 ml TP PRN 09/06/19 03/19/20 02/29/20 History Lactulose 10 gm PO BID #1000 ml 09/20/19 03/19/20 02/29/20 Rx Fesoterodine Fumarate ER (Nf) 8 mg PO DAILY 01/13/20 03/19/20 02/29/20 History [Toviaz ER (Nf)] Vitamin D3 1,000 UNIT TAB 1 tab PO BID 01/13/20 03/19/20 02/29/20 History polyethylene glycoL 3350 [Miralax 17 gm PO QDAY 01/13/20 03/19/20 02/29/20 History 3350] traMADoL [Ultram 50 MG tab] 50 mg PO HS 01/13/20 03/19/20 03/03/20 History Glycopyrrolate 2 mg PO BID tablet 03/11/20 03/19/20 Unknown Rx Pantoprazole [Protonix TAB] 40 mg PO BID #60 tablet 03/11/20 03/19/20 Unknown Rx Omeprazole 40 mg PO DAILY #30 capsule. 03/20/20 Unknown Rx Ondansetron [Zofran Odt] 4 mg PO Q8HR #20 tab.rapdis 03/20/20 Unknown Rx Sucralfate [Carafate] 1 gm PO ACHS 30 Days udc 03/20/20 Unknown Rx ED Physical Exam - General Limitations: Physical Limitation General appearance: alert, in no apparent distress - Head Head exam: Present: atraumatic, normocephalic - Eye Eye exam: Present: normal appearance - ENT ENT exam: Present: mucous membranes moist - Neck Neck exam: Present: normal inspection - Respiratory Respiratory exam: Present: normal lung sounds bilaterally. Absent: respiratory distress - Cardiovascular Cardiovascular Exam: Present: regular rate, normal rhythm. Absent: systolic murmur, diastolic murmur, rubs, gallop - GI/Abdominal GI/Abdominal exam: Present: soft, normal bowel sounds. Absent: distended, tenderness, guarding - Rectal Rectal exam: Present: deferred, normal inspection, heme (+) stool. Absent: black stool, bloody stool (trace) - Extremities Exam Extremities exam: Present: normal inspection - Back Exam Back exam: Present: normal inspection - Neurological Exam Neurological exam: Present: alert, oriented X3 - Psychiatric Psychiatric exam: Present: normal affect, normal mood - Skin Skin exam: Present: warm, dry, intact, normal color. Absent: rash ED Course - Reevaluation(s) Reevaluation #1: 03/20/20 00:55 Patient visit from earlier today showed the following laboratory studies and CT report [facility] [address] [place] [address] Cat Scan Report Signed Patient: DEEPA BURT MR#: [id number] 1 : 1965 Acct:[id number] Age/Sex: 54 / M ADM Date: 03/19/20 Loc: ED Attending Dr: Ordering Physician: CURLY ALVARADO DO Date of Service: 03/19/20 Procedure(s): CT abdomen pelvis wo con Accession Number(s): [id number] cc: CURLY ALVARADO DO CT ABDOMEN AND PELVIS WITHOUT CONTRAST INDICATION / CLINICAL INFORMATION: Abdominal pain. TECHNIQUE: Axial CT images were obtained through the abdomen and pelvis without IV contrast. All CT scans at this location are performed using CT dose reduction for ALARA by means of automated exposure control. COMPARISON: None available. FINDINGS: LOWER CHEST: Bibasilar atelectasis with elevation of both hemidiaphragms which is unchanged. LIVER: No significant abnormality. GALLBLADDER: No significant abnormality. BILE DUCTS: No significant abnormality. PANCREAS: No significant abnormality. SPLEEN: No significant abnormality. ADRENALS: No significant abnormality. RIGHT KIDNEY / URETER: Right renal cyst is unchanged. No acute abnormality. LEFT KIDNEY / URETER: No significant abnormality. STOMACH / SMALL BOWEL: Stomach is moderately dilated with fluid and food material with a dilated, fluid-filled esophagus likely related to reflux. No small bowel dilation. COLON: No significant abnormality. APPENDIX: No significant abnormality. PERITONEUM: No free fluid. No free air. No fluid collection. LYMPH NODES: No significant adenopathy. AORTA / ARTERIES: No significant abnormality. IVC / VEINS: No significant abnormality. URINARY BLADDER: Several tiny nonobstructing bladder stones are unchanged. Soft tissue density in the posterior urinary bladder is unchanged. This could represent an extruded BPH nodule versus an intrinsic bladder lesion. REPRODUCTIVE ORGANS: Prostate is enlarged. ADDITIONAL FINDINGS: None. SKELETAL SYSTEM: Advanced bilateral hip degenerative arthrosis and scoliosis is unchanged. IMPRESSION: 1. Dilated, fluid-filled esophagus and stomach with possible gastroesophageal reflux. No small bowel obstruction. 2. No inflammatory process. 3. Small calcified bladder stones, unchanged. 4. Soft tissue mass in the posterior urinary bladder which is unchanged from the most recent study. This may represent an extruded BPH prostate nodule versus intrinsic bladder lesion. Signer Name: Mat Miranda MD Signed: 03/19/2020 4:53 PM Workstation Name: [id number] 03/20/20 00:56 03/19/20 19:25 Lab Results 03/19/20 03/19/20 03/19/20 Range/Units 11:38 11:38 16:10 WBC 17.6 H (4.5-11.0) K/mm3 RBC 4.18 (3.65-5.03) M/mm3 Hgb 8.8 L (11.8-15.2) gm/dl Hct 29.3 L (35.5-45.6) % MCV 70 L (84-94) fl MCH 21 L (28-32) pg MCHC 30 L (32-34) % RDW 27.7 H (13.2-15.2) % Plt Count 388 (140-440) K/mm3 Add Manual Diff Complete Total Counted 100 Seg Neuts % (Manual) 88.0 H (40.0-70.0) % Band Neutrophils % 1.0 % Lymphocytes % (Manual) 6.0 L (13.4-35.0) % Reactive Lymphs % (Man) 0 % Monocytes % (Manual) 5.0 (0.0-7.3) % Eosinophils % (Manual) 0 (0.0-4.3) % Basophils % (Manual) 0 (0.0-1.8) % Metamyelocytes % 0 % Myelocytes % 0 % Promyelocytes % 0 % Blast Cells % 0 % Nucleated RBC % Not Reportable Seg Neutrophils # Man 15.5 H (1.8-7.7) K/mm3 Band Neutrophils # 0.2 K/mm3 Lymphocytes # (Manual) 1.1 L (1.2-5.4) K/mm3 Abs React Lymphs (Man) 0.0 K/mm3 Monocytes # (Manual) 0.9 H (0.0-0.8) K/mm3 Eosinophils # (Manual) 0.0 (0.0-0.4) K/mm3 Basophils # (Manual) 0.0 (0.0-0.1) K/mm3 Metamyelocytes # 0.0 K/mm3 Myelocytes # 0.0 K/mm3 Promyelocytes # 0.0 K/mm3 Blast Cells # 0.0 K/mm3 WBC Morphology Not Reportable Hypersegmented Neuts Not Reportable Hyposegmented Neuts Not Reportable Hypogranular Neuts Not Reportable Smudge Cells Not Reportable Toxic Granulation Not Reportable Toxic Vacuolation Not Reportable Dohle Bodies Not Reportable Pelger-Huet Anomaly Not Reportable Filipe Rods Not Reportable Platelet Estimate Consistent w auto Clumped Platelets Not Reportable Plt Clumps, EDTA Not Reportable Large Platelets Not Reportable Giant Platelets Not Reportable Platelet Satelliting Not Reportable Plt Morphology Comment Not Reportable RBC Morphology Not Reportable Dimorphic RBCs Not Reportable Polychromasia Not Reportable Hypochromasia 2+ Poikilocytosis 2+ Anisocytosis 3+ Microcytosis Not Reportable Macrocytosis Not Reportable Spherocytes Not Reportable Pappenheimer Bodies Not Reportable Sickle Cells Not Reportable Target Cells Not Reportable Tear Drop Cells 1+ Ovalocytes Few Helmet Cells Not Reportable Garcia-[place] Bodies Not Reportable Douglas Rings Not Reportable Lala Cells Not Reportable Bite Cells Not Reportable Crenated Cell Not Reportable Elliptocytes 1+ Acanthocytes (Spur) Not Reportable Rouleaux Not Reportable Hemoglobin C Crystals Not Reportable Schistocytes Not Reportable Malaria parasites Not Reportable Navneet Bodies Not Reportable Hem Pathologist Commnt No Sodium 140 (137-145) mmol/L Potassium 4.2 (3.6-5.0) mmol/L Chloride 103.0 (98-107) mmol/L Carbon Dioxide 23 (22-30) mmol/L Anion Gap 18 mmol/L BUN 24 H (9-20) mg/dL Creatinine 0.4 L (0.8-1.3) mg/dL Estimated GFR > 60 ml/min BUN/Creatinine Ratio 60 % Glucose 132 H (75-100) mg/dL Calcium 8.7 (8.4-10.2) mg/dL Total Bilirubin 0.40 (0.1-1.2) mg/dL AST 18 (5-40) units/L ALT 15 (7-56) units/L Alkaline Phosphatase 95 (35-129) units/L Total Protein 7.1 (6.3-8.2) g/dL Albumin 3.6 L (3.9-5) g/dL Albumin/Globulin Ratio 1.0 % Lipase 9 L (13-60) units/L Urine Color Yellow (Yellow) Urine Turbidity Clear (Clear) Urine pH 8.0 H (5.0-7.0) Ur Specific [place] 1.018 (1.003-1.030) Urine Protein <15 mg/dl (Negative) mg/dL Urine Glucose (UA) Neg (Negative) mg/dL Urine Ketones Tr (Negative) mg/dL Urine Blood Neg (Negative) Urine Nitrite Neg (Negative) Urine Bilirubin Neg (Negative) Urine Urobilinogen 4.0 (<2.0) mg/dL Ur Leukocyte Esterase Neg (Negative) Urine WBC (Auto) 1.0 (0.0-6.0) /HPF Urine RBC (Auto) 2.0 (0.0-6.0) /HPF U Epithel Cells (Auto) < 1.0 (0-13.0) /HPF Urine Mucus Few /HPF ED Medical Decision Making - Medical Decision Making His medication will be switched back to omeprazole. Also add Carafate. Critical care attestation.: If time is entered above; I have spent that time in minutes in the direct care of this critically ill patient, excluding procedure time. ED Disposition Clinical Impression: Esophagitis Disposition: DC-01 TO HOME OR SELFCARE Is pt being admited?: No Does the pt Need Aspirin: No Condition: Stable Instructions: Diet for Ulcers and Gastritis (ED), Corrosive Esophagitis (ED) Prescriptions: Sucralfate [Carafate] 1 gm PO ACHS 30 Days udc Omeprazole 40 mg PO DAILY #30 capsule. Ondansetron [Zofran Odt] 4 mg PO Q8HR #20 tab.sudarshan Time of Disposition: 01:08
[2020-03-20] MEDS ORDERED: ONDANSETRON 4 MG/2 ML INJ ONE (03:22)
[2020-03-20 04:12] VITALS: BP 122/68
== END 2020-03-20 06:30 | disposition home or self-care (01) ==
LOC: ED 23:52
DX: K20.9 Esophagitis, unspecified (principal); K21.9 Gastro-esophageal reflux disease without esophagitis; Z79.899 Other long term (current) drug therapy
CPT/HCPCS: 96372; 99282; J2405